=== PATIENT | female | born 1945 | race Caucasian/White ===

== ENCOUNTER → 2016-05-27 | Outpatient (CLI) | payer MEDICARE ==
--- NOTE | 2016-05-27 12:12 | REPMRS ---
Patient History The patient states she had a clinical breast exam in 08/2015. Patient is postmenopausal, has history of breast cancer at age 53, and had previous chemotherapy at age 53. Family history of breast cancer in mother at age 61. Malignant localization of breast nodule of the right breast, 2004. Radiation therapy of the right breast, 2004. Malignant localization of breast nodule of the left breast, 1999. Radiation therapy of the left breast, 1999. Took tamoxifen for 5 years. Digital Woman Screen Mammo: May 27, 2016 - Exam #: [id number] Bilateral CC and MLO view(s) were taken. Technologist: Kenisha Duarte, Technologist Prior study comparison: May 12, 2014, digital woman screen mammo performed at [facility]. May 09, 2013, digital woman screen mammo performed at [facility]. May 06, 2012, digital woman screen mammo performed at [facility]. May 06, 2011, digital woman screen mammo performed at [facility]. FINDINGS: The breast tissue is heterogeneously dense. This may lower the sensitivity of mammography. There has been no change in the appearance of the mammogram from the prior studies. There is a moderate amount of residual fibroglandular tissue which is fairly symmetric. Stable bilateral postsurgical changes with scarring and retraction both breasts. Surgical clips also noted on both sides and stable. There is no interval development of dominant mass, architectural distortion, or clustered microcalcification typical of malignancy. Large coarse benign appearing calcifications are present. Scattered lymph nodes are seen in the left axilla. No significant changes when compared with prior studies. ASSESSMENT: BI-RADS/ACR category 2 mammogram. Benign finding(s). Recommendation Routine screening mammogram in 1 year (for women over age 40). This mammogram was interpreted with the aid of an FDA-approved computer-aided dectection system. A. Negative x-ray reports should not delay biopsy if a dominant or clinically suspicious mass is present. B. Four to eight percent of cancers are not identified by mammography. C. Adenosis and dense breast may obscure an underlying neoplasm. Electronically Signed By: Jamel Concepcion MD 05/27/16 1211
== END ==
LOC: M WHC 10:16
PROVIDERS: ATTEND Nurse Practitioner Family
DX: Z12.31 Encounter for screening mammogram for malignant neoplasm of breast (principal); Z85.3 Personal history of malignant neoplasm of breast

== ENCOUNTER 2017-01-25 10:21 | Emergency (ER) | payer MEDICARE ==
[~2017-01-25] VITALS: Ht 154.9 cm; Wt 75.0 kg
[2017-01-25] MEDS ORDERED: VENL37.52 (10:32)
[2017-01-25] MEDS ORDERED: FLUTISP (10:32)
[2017-01-25] MEDS ORDERED: GENT0.3O15 (10:32)
[2017-01-25] MEDS ORDERED: DOXY100C (10:32)
[2017-01-25] MEDS ORDERED: ZOLP5TAB (10:32)
[2017-01-25] MEDS ORDERED: CLINDAMYCIN 900 MG in APPROPRIATE DILUENT 1 EA IV ONE (11:30)
[2017-01-25 11:46] LABS: BASO # 0.1 10^3/uL (0.0-0.2); BASO % 0.7 % (0.0-1.0); EOS # 0.2 10^3/uL (0.0-0.50); EOS % 2.3 % (0.0-3.0); IMMATURE GRANULOCYTE % 0.2 % (0-0); LYMPH # 1.7 10^3/uL (1.5-4.5); LYMPH % 20.1 % (24.0-44.0); MEAN CORPUSCULAR HEMOGLOBIN 32.3 pg (27.0-33.0); MEAN CORPUSCULAR HGB CONC 31.8 g/dl (32.0-36.5); MEAN CORPUSCULAR VOLUME 101.4 fl (80.0-96.0); MONO # 0.8 10^3/uL (0.0-0.8); MONO % 9.8 % (0.0-5.0); NEUTROPHILS # 5.6 10^3/uL (1.8-7.7); NEUTROPHILS % 66.9 % (36.0-66.0); PLATELET COUNT, AUTOMATED 321 10^3/uL (150-450); RED CELL DISTRIBUTION WIDTH 12.4 % (11.5-14.5); WHITE BLOOD COUNT 8.4 10^3/uL (4.0-10.0)
[2017-01-25 12:05] LABS: ALBUMIN 3.9 GM/DL (3.2-5.2); ALKALINE PHOSPHATASE 67 U/L (45-117); ALT/SGPT 28 U/L (12-78); ANION GAP 7 MEQ/L (8-16); AST/SGOT 15 U/L (7-37); BILIRUBIN,DIRECT < 0.1 MG/DL (0.0-0.2); BILIRUBIN,TOTAL 0.3 MG/DL (0.2-1.0); BLOOD UREA NITROGEN 20 MG/DL (7-18); CALCIUM LEVEL 8.9 MG/DL (8.8-10.2); CARBON DIOXIDE LEVEL 29 MEQ/L (21-32); CHLORIDE LEVEL 106 MEQ/L (98-107); CREATININE FOR GFR 0.61 MG/DL (0.55-1.02); GLOMERULAR FILTRATION RATE > 60.0 (>39); GLUCOSE, FASTING 70 MG/DL (83-110); POTASSIUM SERUM 3.6 MEQ/L (3.5-5.1); SODIUM LEVEL 142 MEQ/L (136-145); TOTAL PROTEIN 7.8 GM/DL (6.4-8.2)
[2017-01-25] MEDS ORDERED: FLUORESCEIN OPHTH 1 MG STRIP OD ONE (12:15)
[2017-01-25] MEDS ORDERED: NORCO, ANEXSIA 5/325MG TABLET (HYDROcodone/ACETAMINOPHEN) PO ONE (12:15)
[2017-01-25] MEDS ORDERED: VALA1TAB2 PO (14:33)
[2017-01-25] MEDS ORDERED: MEDR4PAK PO (14:33)
[2017-01-25] MEDS ORDERED: CYCL1SOL17 OD (14:33)
[2017-01-25] MEDS ORDERED: ZIRG0.152 OD (14:33)
[2017-01-25] MEDS ORDERED: ERYTOIN8 OD (14:33)
[2017-01-25] MEDS ORDERED: NORCOTAB PO (14:33)
[2017-01-25 15:04] VITALS: BP 173/82
== END 2017-01-25 15:06 | disposition home or self-care (01) ==
LOC: M ED 10:21
DX: B02.33 Zoster keratitis (principal); L03.213 Periorbital cellulitis; F32.9 Major depressive disorder, single episode, unspecified; G47.00 Insomnia, unspecified; Z87.891 Personal history of nicotine dependence; Z88.8 Allergy status to other drugs, medicaments and biological substances; Z79.899 Other long term (current) drug therapy

== ENCOUNTER → 2017-05-28 | Outpatient (CLI) | payer MEDICARE | LOC: M WHC 12:55 | DX: Z12.31 Encounter for screening mammogram for malignant neoplasm of breast (principal); R92.8 Other abnormal and inconclusive findings on diagnostic imaging of breast; Z85.3 Personal history of malignant neoplasm of breast | CPT/HCPCS: 77067 ==

== ENCOUNTER → 2017-06-16 | Outpatient (REF) | payer MEDICARE ==
[2017-06-16 16:43] LABS: INR 1.02; PROTHROMBIN TIME 13.5 SECONDS (12.4-14.5)
== END ==
LOC: M LAB REF 15:58
DX: Z79.01 Long term (current) use of anticoagulants (principal); Z01.818 Encounter for other preprocedural examination (principal)
CPT/HCPCS: 85610

== ENCOUNTER → 2017-06-22 | Outpatient (CLI) | payer MEDICARE ==
[~2017-06-22] MED LIST: LIDOCAINE 1% MDV 20ML VIAL As Ordered
== END ==
LOC: M RADPRO 12:13
DX: R92.1 Mammographic calcification found on diagnostic imaging of breast (principal)
CPT/HCPCS: 77065; G0279

== ENCOUNTER 2017-08-14 07:29 | Inpatient (IN) | payer MEDICARE ==
[~2017-08-14 07:29] MED LIST changes: +GLYCOPYRROLATE INJ 0.2 MG/ML 2 ML VIAL As Ordered; +HYDROmorphone HCL 2 MG/ML 1ML VIAL (J1170) As Ordered; +KETOROLAC 60 MG/2 ML VIAL (J1885) As Ordered; -LIDOCAINE 1% MDV 20ML VIAL As Ordered; +LIDOCAINE 2% INJ 100 MG/5 ML SDV (FOR ANES.) As Ordered; +MIDAZOLAM INJ 2 MG/2 ML VIAL (J2250) As Ordered; +NEOSTIGMINE 10 MG/10 ML VIAL (J2710) As Ordered; +ONDANSETRON 4MG/2ML VIAL (J2405) As Ordered; +PROPOFOL 200 MG/20 ML VIAL As Ordered; +ROCURONIUM BROMIDE 50 MG/5 ML VIAL As Ordered; +dexameTHASONE 4 MG/ML 1ML VIAL (J1100) As Ordered; +fentaNYL 100 MCG/2 ML INJECTION (J3010) As Ordered
[2017-08-14] MEDS ORDERED: LIDOCAINE 1% MDV 20ML VIAL SQ (07:45)
[2017-08-14] MEDS ORDERED: LR 1,000 ML IV (07:45)
[2017-08-14] MEDS ORDERED: EMLA CREAM 5GM (LIDOCAINE/PRILOCAINE) As Ordered (08:04)
[2017-08-14] MEDS: LIDOCAINE 5% (LIDODERM) PATCH TD (08:08)
[2017-08-14] MEDS ORDERED: SCOPOLAMINE 1MG TRANSDERMAL PATCH As Ordered (10:50)
[2017-08-14] MEDS: SCOPOLAMINE 1MG TRANSDERMAL PATCH TOP (11:15)
[2017-08-14] MEDS: METHYLENE BLUE 0.5% (5MG/ML) 10 ML AMP (PROVAYBLUE)(Q9968 PER 1MG) As Ordered (12:10)
[2017-08-14] MEDS ORDERED: KETOROLAC 30 MG/ML VIAL (J1885) IV (16:15)
[2017-08-14] MEDS ORDERED: MORPHINE 4 MG/ML 1ML VIAL/SYRINGE (J2270) IV (16:15)
[2017-08-14] MEDS ORDERED: ONDANSETRON 4MG/2ML VIAL (J2405) IV ×2 (16:15→17:15)
[2017-08-14] MEDS ORDERED: ACETAMINOPHEN TAB 650MG DOSE (2X325MG) PO (16:15)
[2017-08-14] MEDS ORDERED: fentaNYL 100 MCG/2 ML INJECTION (J3010) IV (17:15)
[2017-08-14] MEDS ORDERED: MORPHINE 10 MG/ML 1ML VIAL (J2270) IV (17:15)
[2017-08-14] MEDS ORDERED: PERCOCET 5MG/325MG TAB PO (17:15)
[2017-08-14] MEDS: LR 1,000 ML IV ×2 (18:30→20:38)
[2017-08-14] MEDS: GABAPENTIN 300 MG CAP PO (18:30)
[2017-08-14] MEDS: TOBRADEX OPHTH SUSP 2.5 ML OD (20:38)
[2017-08-14] MEDS: NORCO, ANEXSIA 5/325MG TABLET (HYDROcodone/ACETAMINOPHEN) PO (20:40)
[2017-08-15] MEDS: GABAPENTIN 300 MG CAP PO ×3 (00:04→16:39)
[2017-08-15] MEDS: LR 1,000 ML IV ×2 (00:45→10:20)
[2017-08-15] MEDS: NORCO, ANEXSIA 5/325MG TABLET (HYDROcodone/ACETAMINOPHEN) PO (04:39)
[2017-08-15 06:38] LABS: BASO % 0.2 % (0.0-1.0); HEMATOCRIT 32.1 % (36.0-47.0); HEMOGLOBIN 10.3 g/dl (12.0-15.5); IMMATURE GRANULOCYTE % 0.4 % (0-3.0); LYMPH # 1.3 10^3/uL (1.5-4.5); LYMPH % 11.2 % (24.0-44.0); MEAN CORPUSCULAR HEMOGLOBIN 32.7 pg (27.0-33.0); MEAN CORPUSCULAR HGB CONC 32.1 g/dl (32.0-36.5); MEAN CORPUSCULAR VOLUME 101.9 fl (80.0-96.0); MONO # 0.8 10^3/uL (0.0-0.8); MONO % 6.6 % (0.0-5.0); NEUTROPHILS # 9.5 10^3/uL (1.8-7.7); NEUTROPHILS % 81.6 % (36.0-66.0); PLATELET COUNT, AUTOMATED 279 10^3/uL (150-450); RED BLOOD COUNT 3.15 10^6/uL (4.00-5.40); RED CELL DISTRIBUTION WIDTH 12.9 % (11.5-14.5); WHITE BLOOD COUNT 11.7 10^3/uL (4.0-10.0)
[2017-08-15 06:57] LABS: ANION GAP 2 MEQ/L (8-16); BLOOD UREA NITROGEN 16 MG/DL (7-18); CALCIUM LEVEL 8.5 MG/DL (8.8-10.2); CARBON DIOXIDE LEVEL 31 MEQ/L (21-32); CHLORIDE LEVEL 109 MEQ/L (98-107); CREATININE FOR GFR 0.64 MG/DL (0.55-1.30); GLOMERULAR FILTRATION RATE > 60.0 (>39); GLUCOSE, FASTING 110 MG/DL (70-100); POTASSIUM SERUM 4.3 MEQ/L (3.5-5.1); SODIUM LEVEL 142 MEQ/L (136-145)
[2017-08-15] MEDS: TOBRADEX OPHTH SUSP 2.5 ML OD ×2 (08:53→16:00)
[2017-08-15] MEDS: CETIRIZINE (ZyrTEC) 10 MG TAB PO (08:53)
== END 2017-08-15 16:45 | disposition home or self-care (01) | DRG 580 ==
LOC: M OR 07:29 → M MSPAV 17:16
PROC: 07B50ZX Excision of Right Axillary Lymphatic, Open Approach, Diagnostic (ICD-10-PCS; principal; 2017-08-14 11:00)
PROC: 0HTV0ZZ Resection of Bilateral Breast, Open Approach (ICD-10-PCS; 2017-08-14 11:00)
PROC: 0KBH0ZZ Excision of Right Thorax Muscle, Open Approach (ICD-10-PCS; 2017-08-14 11:00)
DX: C50.411 Malignant neoplasm of upper-outer quadrant of right female breast (principal); C77.3 Secondary and unspecified malignant neoplasm of axilla and upper limb lymph nodes; F32.9 Major depressive disorder, single episode, unspecified; K22.70 Barrett's esophagus without dysplasia; G47.00 Insomnia, unspecified; E78.5 Hyperlipidemia, unspecified; M54.2 Cervicalgia; Z92.21 Personal history of antineoplastic chemotherapy; Z92.3 Personal history of irradiation; Z87.891 Personal history of nicotine dependence; M54.5 Low back pain; Z17.0 Estrogen receptor positive status [ER+]

== ENCOUNTER → 2017-08-18 | Outpatient (CLI) | payer MEDICARE | LOC: M PLARAD 13:24 | DX: Z85.3 Personal history of malignant neoplasm of breast (principal) | CPT/HCPCS: 78815 ==

== ENCOUNTER → 2017-09-04 | Outpatient (CLI) | payer MEDICARE | LOC: M WHC 13:05 | DX: C50.119 Malignant neoplasm of central portion of unspecified female breast (principal); N95.8 Other specified menopausal and perimenopausal disorders | CPT/HCPCS: 77080 ==

== ENCOUNTER → 2017-10-26 | Outpatient (REF) | payer MEDICARE | LOC: M LAB REF 14:49 | DX: D48.5 Neoplasm of uncertain behavior of skin (principal) | CPT/HCPCS: 88305 ==

== ENCOUNTER → 2017-11-12 | Outpatient (CLI) | payer MEDICARE ==
[~2017-11-12] MED LIST changes: +GASTROGRAFIN SOLUTION 30ML (Q9963) As Ordered; -GLYCOPYRROLATE INJ 0.2 MG/ML 2 ML VIAL As Ordered; -HYDROmorphone HCL 2 MG/ML 1ML VIAL (J1170) As Ordered; +ISOVUE-370 76% 100ML VIAL (Q9967) As Ordered; -KETOROLAC 60 MG/2 ML VIAL (J1885) As Ordered; -LIDOCAINE 2% INJ 100 MG/5 ML SDV (FOR ANES.) As Ordered; -MIDAZOLAM INJ 2 MG/2 ML VIAL (J2250) As Ordered; -NEOSTIGMINE 10 MG/10 ML VIAL (J2710) As Ordered; -ONDANSETRON 4MG/2ML VIAL (J2405) As Ordered; -PROPOFOL 200 MG/20 ML VIAL As Ordered; -ROCURONIUM BROMIDE 50 MG/5 ML VIAL As Ordered; -dexameTHASONE 4 MG/ML 1ML VIAL (J1100) As Ordered; -fentaNYL 100 MCG/2 ML INJECTION (J3010) As Ordered
== END ==
LOC: M RAD 07:27
DX: C50.411 Malignant neoplasm of upper-outer quadrant of right female breast (principal); C77.3 Secondary and unspecified malignant neoplasm of axilla and upper limb lymph nodes
CPT/HCPCS: Q9963

== ENCOUNTER → 2017-11-24 | Outpatient (CLI) | payer MEDICARE | LOC: M ONCR 10:38 | DX: C50.911 Malignant neoplasm of unspecified site of right female breast (principal) | CPT/HCPCS: G0463 ==

== ENCOUNTER → 2018-04-13 | Outpatient (CLI) | payer MEDICARE ==
[~2018-04-13] MED LIST changes: +ALEN70TA57 PO; +AMBI5TAB PO; +AMIT25TA; +ANAS1TAB2 PO; +AUGM875T28 PO; +CALC600T60 PO; +CYCL1SOL17 OD; +DOXY100C; +ERYTOIN8 OD; +FLUTISP; +GABA-845 PO; +GABA600T4; -GASTROGRAFIN SOLUTION 30ML (Q9963) As Ordered; +GENT0.3O15; +IBRA125C PO; +ICAPCAP PO; -ISOVUE-370 76% 100ML VIAL (Q9967) As Ordered; +MEDR4PAK PO; +NORCOTAB PO; +TOBRSUS8 OD; +TOBRSUS8 OP; +VALA1TAB2 PO; +VENL37.52; +VENL75CA47 PO; +VITA-182 PO; +VITACAP8 PO; +ZIRG0.152 OD; +ZOLP5TAB; +ZYRT10CA5 PO
--- NOTE | 2018-04-13 20:50 | REP ---
Whole body PET CT scan for restaging of breast carcinoma: Comparison is 08/18/2017. Whole-body scanning is performed from skull base to the upper thighs. Neck and supraclavicular areas: There are no hypermetabolic foci, this is unchanged. Chest: There are no hypermetabolic foci, this is unchanged. Abdomen, pelvis and upper thighs: There are no hypermetabolic foci, this is unchanged. Impression: Negative whole-body PET scan. There are no hypermetabolic foci. This is unchanged from the prior study. The study is performed with 8.68 mCi of F 18 FDG. Electronically Signed by Hussain Arias MD 04/13/2018 08:41 P
== END ==
LOC: M PLARAD 10:27
PROVIDERS: ATTEND Internal Medicine Medical Oncology
DX: C50.411 Malignant neoplasm of upper-outer quadrant of right female breast (principal)
CPT/HCPCS: 78815; A9552

== ENCOUNTER → 2018-05-21 | Outpatient (CLI) | payer MEDICARE ==
[~2018-05-21] MED LIST changes: +SENO8.6T10 PO
--- NOTE | 2018-05-21 19:13 | REP ---
ULTRASOUND RIGHT AXILLA: Real-time sonographic evaluation of the right axilla performed in the region of a reported palpable abnormality. At that location is a hypoechoic solid nodule with internal blood flow measuring 5 x 5 x 4 mm. There is no fatty hilum. There is an adjacent normal appearing lymph node with a fatty hilum measuring 6 x 4 mm. No other cystic or solid nodule is seen. IMPRESSION: The palpable lump in the right axilla corresponds to a hypoechoic solid nodule measuring 5 x 5 x 4 mm. This is a nonspecific finding. There is no fatty hilum identified as would be expected with a normal lymph node morphology. There is an adjacent normal appearing lymph node with a fatty hilum measuring 6 x 4 mm. Electronically Signed by Hussain Brothers MD 05/21/2018 08:04 P
== END ==
LOC: M RAD 13:23
PROVIDERS: ATTEND Internal Medicine Medical Oncology
DX: C50.411 Malignant neoplasm of upper-outer quadrant of right female breast (principal); R93.7 Abnormal findings on diagnostic imaging of other parts of musculoskeletal system

== ENCOUNTER → 2018-05-25 | Outpatient (CLI) | payer MEDICARE ==
[~2018-05-25] MED LIST changes: +GASTROGRAFIN SOLUTION 30ML (Q9963) As Ordered ONE; +ISOVUE-370 76% 125ML VIAL (Q9967 PER ML) As Ordered ONE
--- NOTE | 2018-05-25 15:45 | REP ---
Clinical: Recurrent breast cancer for restaging. Technique: Axial contrast enhanced images from the lung bases to the pubic symphysis using oral (per protocol) and 100 ml Isovue 370 intravenous contrast material with delayed images of the abdomen as well as coronal and sagittal re-formations. Comparison: PET-CT dated 04/13/2018, CT dated 11/12/2017. Findings: Please refer to chest CT for full evaluation of the chest. Liver, spleen, pancreas, gallbladder, bilateral adrenal glands and kidneys are normal. The enteric system is without obstruction or acute inflammatory process. Pelvis demonstrates normal bladder and evidence for prior hysterectomy. No ascites. No free air. No intraperitoneal or retroperitoneal adenopathy. Abdominal aorta without aneurysm or dissection. Musculoskeletal structures demonstrate age-related changes without obvious aggressive lesion or abnormality. Impression: 1. No acute abdominopelvic pathology appreciated. 2. Specifically, no evidence for metastatic disease related to the given history of breast cancer. Electronically Signed by Amaury Tinajero MD 05/25/2018 03:36 P
--- NOTE | 2018-05-25 15:50 | REP ---
Clinical: Recurrent breast cancer for restaging. Technique: Axial contrast enhanced images from the thoracic inlet to the upper abdomen with coronal and sagittal re-formations using 100 ml Isovue 370 intravenous contrast material. Comparison: PET-CT dated 04/13/2018; chest CT dated 11/12/2017. Findings: In comparison with prior examination, there is a new area of somewhat ill-defined linear, plate-like atelectasis / interstitial changes in the right upper lobe (images [id number]). Remainder of lung schafer demonstrate stable chronic age-related changes. 3 mm ground-glass opacity adjacent to the right major fissure (image 55) remains unchanged. No further area of consolidation, nodule or mass lesion appreciated. No pleural effusion. No pneumothorax. Tracheobronchial tree is patent. No significant adenopathy. Thoracic aorta, pulmonary vasculature and heart/pericardium appear relatively normal / stable. Surrounding osseous structures are intact and without focal osseous abnormality. Evidence for prior bilateral mastectomy again noted. Impression: 1. New vague area of linear, plate-like fibro atelectatic change in the right upper lung zone warrants short-term, 3-6 month follow-up given the patient's history of breast cancer. 2. No further acute mediastinal or pleuroparenchymal process appreciated. Electronically Signed by Amaury Tinajero MD 05/25/2018 03:41 P
== END ==
LOC: M RAD 12:54
PROVIDERS: ATTEND Internal Medicine Medical Oncology
DX: C50.919 Malignant neoplasm of unspecified site of unspecified female breast (principal); Z90.13 Acquired absence of bilateral breasts and nipples; R91.8 Other nonspecific abnormal finding of lung field
CPT/HCPCS: 71260; 74177; Q9963; Q9967

== ENCOUNTER → 2018-09-29 | Outpatient (CLI) | payer MEDICARE ==
[~2018-09-29] MED LIST changes: -ALEN70TA57 PO; +ALEN70TA74 PO; +ALLE10TA62 PO; +CAPE1TAB2 PO; +CBD OIL; +D-101000 PO; +HYDR-3715 PO; +ISOVUE-370 76% 100ML VIAL (Q9967) As Ordered ONE; -ISOVUE-370 76% 125ML VIAL (Q9967 PER ML) As Ordered ONE; +MAGICMW SSP; -NORCOTAB PO; +PRESCAP PO; +PROBCAP14 PO; +QUET5TAB PO; +SB A10TA4 PO; -VALA1TAB2 PO; +VALA1TAB64 PO; +VENL37TA PO; +VITA1CHW7 PO; +ZOLP5TAB PO
--- NOTE | 2018-09-29 11:23 | REP ---
Clinical: Breast cancer. Follow-up. Technique: Axial contrast enhanced images from the lung bases to the pubic symphysis using oral (per protocol) and 100 ml Isovue 370 intravenous contrast material with coronal and sagittal re-formations. Comparison: 05/25/2018. Findings: Mild fatty infiltration to the liver suggested along with stable subcentimeter benign appearing cyst in the left lobe. No suspicious hepatic lesions are identified. Spleen, pancreas, gallbladder, bilateral adrenal glands and kidneys are relatively normal. Incidental 4 mm nonobstructing left renal calculus noted. The enteric system is without obstruction or acute inflammatory process. Scattered sigmoid diverticula noted without acute diverticulitis. Pelvis demonstrates normal bladder and evidence for prior hysterectomy. No ascites. No free air. No intraperitoneal or retroperitoneal adenopathy. Abdominal aorta without aneurysm or dissection. Musculoskeletal structures demonstrate age-related degenerative changes without focal abnormality. Impression: 1. Hepatic steatosis and stable subcentimeter benign hepatic cyst. 2. 4 mm nonobstructing left renal calculus. 3. Sigmoid diverticula without acute diverticulitis. 4. No acute abdominopelvic pathology appreciated. No evidence for metastatic disease. No ascites, adenopathy, or focal inflammatory stranding. Electronically Signed by Amaury Tinajero MD 09/29/2018 11:15 A
--- NOTE | 2018-10-14 05:30 | REP ---
Clinical: Breast cancer. Technique: Axial contrast enhanced images from the thoracic inlet to the upper abdomen with coronal and sagittal re-formations oozing 100 ml Isovue 370 intravenous contrast material. Comparison: 05/25/2018. Findings: The bilateral lung schafer are relatively well aerated, symmetric and essentially clear. Minimal chronic fibroatelectatic changes at the lingula and small 2 mm calcified nodules remains stable. No new acute consolidation, significant nodule or mass lesion is appreciated. No pleural effusion. No pneumothorax. The previously identified areas of ill-defined ground-glass opacity predominantly noted in the right lobe have resolved. Sub centimeter mediastinal and left hilar lymph nodes are nonspecific and unchanged. Vascular structures including thoracic aorta, pulmonary vasculature and heart/pericardium are essentially normal/stable. Limited upper abdomen demonstrates normal bilateral adrenal glands. Musculoskeletal structures are intact without focal aggressive abnormality noted. Impression: 1. Previously identified ill-defined areas of ground-glass opacity have resolved and likely represented transient atelectasis. 2. No significant mediastinal or pleuroparenchymal process appreciated. Electronically Signed by Amaury Tinajero MD 10/14/2018 05:22 A
== END ==
LOC: M RAD 08:57
PROVIDERS: ATTEND Internal Medicine Medical Oncology
DX: C50.919 Malignant neoplasm of unspecified site of unspecified female breast (principal); K76.0 Fatty (change of) liver, not elsewhere classified; K76.89 Other specified diseases of liver; K57.30 Diverticulosis of large intestine without perforation or abscess without bleeding
CPT/HCPCS: 71260; 74178; Q9963; Q9967

== ENCOUNTER → 2018-12-14 | Outpatient (CLI) | payer MEDICARE ==
[~2018-12-14] MED LIST changes: -GASTROGRAFIN SOLUTION 30ML (Q9963) As Ordered ONE; -ISOVUE-370 76% 100ML VIAL (Q9967) As Ordered ONE; +VALA1TAB2 PO; -VALA1TAB64 PO; -VITA1CHW7 PO
--- NOTE | 2018-12-14 13:14 | REP ---
REASON FOR EXAM: History of breast cancer. Latest prior for comparison 09/29/2018. The lack of intravenous contrast significantly decreases the sensitivity of the exam. Limited evaluation of the solid intra-abdominal organs and gallbladder show no gross abnormalities. Limited evaluation of the kidneys shows bilateral tiny nonobstructing nephroliths. There is no evidence of hydronephrosis or hydroureter. There are no ureteroliths. There are no urinary bladder calcifications. There are bilateral pelvic phleboliths status quo. Limited evaluation of the abdominal aorta and paraaortic regions show no gross abnormalities. Limited evaluation of the bowel loops and their mesenteries show no gross abnormalities. There is no free fluid or free air. CT PELVIS: There is no evidence of a pelvic mass or adenopathy. The bowel loops and their mesenteries are within normal limits. Bone window technique throughout the exam shows no significant change in the appearance of the imaged osseous structures. Spinal, hip, and sacroiliac joint degenerative changes are again noted. IMPRESSION: 1. Bilateral nonobstructing nephroliths. 2. Limited exam as described above showing no evidence of acute intra-abdominal or intrapelvic disease. Electronically Signed by Eldon Mckeon DO 12/14/2018 02:14 P
--- NOTE | 2018-12-14 14:26 | REP ---
REASON FOR EXAM: History of breast carcinoma. COMPARISON: Multiple. All priors were reviewed, the latest of which is dated 09/29/2018 showing no evidence of acute disease. The lack of intravenous contrast decreases the sensitivity of the exam. The mediastinum and pulmonary adriel are essentially unchanged. There is no evidence of a mass or adenopathy. There are no pleural or pericardial effusions. For description of the imaged upper abdomen see the abdominal CT report obtained today. Bone window technique throughout the exam shows no evidence of significant change in the appearance of the imaged osseous structures. Evaluation of the lung schafer shows a stable 4 mm sized nodule in the right lower lobe abutting the major fissure. This was not imaged on the latest prior chest CT, however, it has been stable since as far back as the chest CT of 11/12/2017. Incidental calcified granulomas are also seen bilaterally. No new abnormal nodules, mass, or opacities have developed. IMPRESSION: No acute intrathoracic disease. Findings and limitations as described above. Electronically Signed by Eldon Mckeon DO 12/14/2018 03:48 P
== END ==
LOC: M RAD 10:13
PROVIDERS: ATTEND Internal Medicine Medical Oncology
DX: N20.0 Calculus of kidney (principal); C50.911 Malignant neoplasm of unspecified site of right female breast; C50.912 Malignant neoplasm of unspecified site of left female breast

== ENCOUNTER → 2018-12-16 | Outpatient (CLI) | payer MEDICARE ==
--- NOTE | 2018-12-17 09:32 | RADONC ---
RADIATION ONCOLOGY CONSULTATION NOTE DATE: 12/16/2018 CHART NUMBER: [id number] DIAGNOSIS: Right breast cancer.. Recurrent. ECOG PERFORMANCE STATUS: 0 CONSULTATION NOTE: Ms. 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 HISTORY OF PRESENT ILLNESS: The patient has a very lengthy history, which was well documented in detail on our previous consultation note dated 11/24/2017. I would refer you to that note. To briefly summarize, the patient's history dates back to the year 1999 when she underwent a lumpectomy for early stage left-sided breast carcinoma. Apparently, she was treated with postoperative radiation therapy as well as four cycles of doxorubicin and cyclophosphamide. She received tamoxifen for 5 years and then went on to letrozole. This was treated in [place]. In the year 2005, a right-sided breast cancer stage I, T1c (1.3 cm), N0, MX was found and the patient was treated with lumpectomy followed by MammoSite brachytherapy and letrozole which she received from [id number]. The patient did well, but was found to have a local recurrence in the right breast. On 08/14/2017, the patient underwent right mastectomy and axillary tail dissection. Pathology revealed a 3 cm, moderately differentiated invasive ductal carcinoma of the right breast. All surgical margins appeared to be negative. There were foci of lymphatic permeation noted in the breast parenchyma. The tumor was estrogen receptor and progesterone receptor positive and HER2/eric negative. 2 of 4 axillary lymph nodes were sampled and were positive for metastatic disease one showing extracapsular extension. The patient was noted to have done well for approximately 5 or 6 weeks but then noted small skin nodules forming on her right chest wall. On 10/26/2017, the patient underwent a punch biopsy of the right chest wall and was found to have recurrent ductal carcinoma. These lesions continued to spread and as noted above, the patient was seen by me on 11/24/2017 for discussion of external beam radiation therapy to her chest wall and lymph node drainage region. Following my consultation the patient was seen by her medical oncologist, Dr. Fraga and Dr. Fraga initiated systemic therapy. She has been on Faslodex/palbociclib from October 2017 until May 2018 with a partial response. She was then placed on capecitabine, which was begun in May of 2018. She has done 6 months of therapy. The patient has been photographing her lesions and reports that they have not changed basically over the past year. A CT scan of the chest, abdomen and pelvis was done on 12/14/2018 and no evidence of metastatic disease was seen in any of those regions. The patient is now being referred to us once again for further discussion of chest wall and axillary radiation therapy in attempt to achieve local control. PAST MEDICAL HISTORY: The patient's past medical history is positive for a LULI-BSO in the 1970s. She had asthma as a child. The patient has a history of bronchitis and cataracts. She had a tonsillectomy as well as an appendectomy in the past. ALLERGIES: The patient is allergic to STATINS. SOCIAL HISTORY: The patient has smoked one pack of cigarettes per day for 26 years. She quit 25 years ago. She drinks alcohol socially. FAMILY HISTORY: The patient's family history is positive for mother with breast cancer. REVIEW OF SYSTEMS: The patient's review of systems is positive for some anxiety and decreased energy. It is otherwise noncontributory. Denies nausea, vomiting, fevers, chills, night sweats, diplopia, headaches, anxiety or depression, anorexia, weight loss, visual disturbances, chest pain, urinary or bowel difficulties, bone pain, or neurological problems. PHYSICAL EXAMINATION: The patient is a well-developed, well-nourished 73-year-old white female in no acute distress. HEENT exam is normocephalic, atraumatic. Extraocular movements are intact. There is no palpable cervical, supraclavicular, infraclavicular, axillary, or inguinal lymphadenopathy present. Lungs are clear to auscultation and percussion. Heart has a regular rate and rhythm. Abdomen is benign with no hepatosplenomegaly, masses, or tenderness. Breast examination: The patient's right chest wall shows multiple nodules present involving the skin over her mastectomy site. Skeletal examination reveals no tenderness to pressure or percussion of the bony skeleton. Extremities reveal no clubbing, cyanosis, or edema. Neurologic exam is grossly intact, as is the remainder of the physical examination. ASSESSMENT: As per my discussion 1 year ago, I do believe this patient would benefit from external beam radiation therapy and I have so informed her. I have discussed with the patient in detail the potential benefits as well as possible acute and chronic sequelae of external beam radiation therapy. We discussed logistics of treatment planning, simulation and subsequent fractionated daily radiation treatments. As noted previously, the patient had MammoSite radiation to the right side in the past. Brachytherapy is utilized to deliver a high dose of radiation to the tumor bed with a rapid fall off a dose therefore limiting somewhat the radiation dose to the chest wall. In light of this, I think radiation can be given with acceptable risk. Indeed, if we do not control these lesions they will continue to ulcerate and cause this patient a significant problem. In light of this and the fact that surgeries and systemic therapies have been utilized, radiation is the most reasonable option at this point. Thank you for allowing us to participate in the care of this very pleasant woman. If can be of any further assistance, please free to contact me at anytime. As always, warm regards nausea. cc: MD Michaela Rivera MD Michael Hinman, PA Robert Kimball, MD
== END ==
LOC: M ONCR 12:51
PROVIDERS: ATTEND Radiology Radiation Oncology
DX: C50.911 Malignant neoplasm of unspecified site of right female breast (principal)

== ENCOUNTER 2018-12-28 10:26 | Outpatient (RCR) | payer MEDICARE ==
--- NOTE | 2018-12-28 10:59 | RADONC ---
RADIATION ONCOLOGY SIMULATION NOTE DATE: 12/28/2018 CHART NUMBER: [id number] Ms. Woodruff was taken to the CT scan for CT simulation of her right chest wall and supraclavicular schafer. CT was accomplished without difficulty or discomfort. Radiation treatment planning is underway and radiation treatments will begin subsequently. An immobilization device was created and will be used throughout the course of treatment. It was created without difficulty or discomfort. I was physically present throughout the course of CT simulation.
== END 2018-12-30 ==
LOC: M ONCR 10:26
PROVIDERS: ATTEND Radiology Radiation Oncology
DX: C50.911 Malignant neoplasm of unspecified site of right female breast (principal)

== ENCOUNTER 2019-01-26 10:04 | Outpatient (RCR) | payer MEDICARE ==
--- NOTE | 2019-01-10 10:58 | RADONC ---
RADIATION ONCOLOGY PROGRESS NOTE DATE: 01/10/2019 CHART NUMBER: [id number] PROGRESS NOTE: Ms. Woodruff is presently at a dose of 720 cGy to her right chest wall and is tolerating treatments quite well at this point with no complaints related to her radiation therapy. She is having no skin or bone pain. REVIEW OF SYSTEMS: The patient's review of systems is noncontributory. Denies nausea, vomiting, fevers, chills, night sweats, diplopia, headaches, anxiety or depression, anorexia, weight loss, visual disturbances, chest pain, urinary or bowel difficulties, bone pain, or neurological problems. PHYSICAL EXAMINATION: The patient's skin is in good condition with no evidence of radiation change present. There is no moist or dry desquamation. The remainder of her physical exam remains unchanged. Ms. Woodruff is tolerating treatments quite well and radiation will continue as scheduled.
--- NOTE | 2019-01-18 10:14 | RADONC ---
RADIATION ONCOLOGY DATE: 01/17/2019 CHART NUMBER: [id number] Ms. Woodruff is presently at a dose of 1620 cGy to her right chest wall and is tolerating treatments quite well at this point with no complaints related to her radiation therapy. She is having no skin pain or other problems. REVIEW OF SYSTEMS: The patient's review of systems is noncontributory. She denies nausea, vomiting, fevers, chills, night sweats, diplopia, headaches, anxiety or depression, anorexia, weight loss, visual disturbances, chest pain, urinary or bowel difficulties, bone pain, or neurological problems. PHYSICAL EXAMINATION: The patient's skin is in good condition with no evidence of moist or dry desquamation. The remainder of her physical exam remains unchanged. Ms. Woodruff is tolerating treatments quite well and radiation will continue as scheduled.
--- NOTE | 2019-01-26 07:21 | RADONC ---
RADIATION ONCOLOGY PROGRESS NOTE DATE: 01/24/2019 CHART NUMBER: [id number] Ms. Woodruff is presently at a dose of 2520 cGy to her right chest wall and is tolerating treatments quite well at this point with no complaints related to her radiation therapy. She has no chest wall pain or other problems at this time. REVIEW OF SYSTEMS: The patient's review of systems is noncontributory. She denies nausea, vomiting, fevers, chills, night sweats, diplopia, headaches, anxiety or depression, anorexia, weight loss, visual disturbances, chest pain, urinary or bowel difficulties, bone pain, or neurological problems. PHYSICAL EXAMINATION: The patient's skin is in good condition with no evidence of moist or dry desquamation. There is some erythema present. The remainder of physical exam remains unchanged. Ms. Woodruff is tolerating treatments quite well and radiation will continue as scheduled.
== END 2019-01-29 ==
LOC: M ONCR 10:04
PROVIDERS: ATTEND Radiology Radiation Oncology
DX: C50.911 Malignant neoplasm of unspecified site of right female breast (principal)

== ENCOUNTER 2019-02-28 10:02 | Outpatient (RCR) | payer MEDICARE ==
--- NOTE | 2019-02-01 11:29 | RADONC ---
RADIATION ONCOLOGY TREATMENT NOTE: DATE OF SERVICE: 02/01/2019 CHART NUMBER: [id number] Mrs. Woodruff is receiving radiation therapy to the right chest wall. So far, she has received a dose of 3060 cGy in 17 fractions. She was experiencing coughing. Chest x-ray was taken and showed bronchitis. On examination, there is occasional wheezing in both lung schafer, more so on the left. There is a few erythematous patches along the mastectomy scar with itching at times. I advised her to use hydrocortisone cream for the itching. Treatment will continue as planned. MTDD
--- NOTE | 2019-02-07 13:23 | RADONC ---
RADIATION ONCOLOGY PROGRESS NOTE DATE: 02/07/2019 CHART NUMBER: [id number] PROGRESS NOTE: Ms. Woodruff is presently a dose of 3780 cGy to her right chest wall and is tolerating treatments quite well at this point with no complaints related to her radiation therapy. She is having no chest wall or bone pain. REVIEW OF SYSTEMS: The patient's review of systems is noncontributory. Denies nausea, vomiting, fevers, chills, night sweats, diplopia, headaches, anxiety or depression, anorexia, weight loss, visual disturbances, chest pain, urinary or bowel difficulties, bone pain, or neurological problems. PHYSICAL EXAMINATION: The patient's skin is in good condition with no evidence of moist or dry desquamation. The remainder of her physical exam remains unchanged. Ms. Woodruff is tolerating treatments quite well and radiation will continue as scheduled. Edited: 02/07/2019 1324 vl
--- NOTE | 2019-02-09 14:04 | RADONC ---
RADIATION ONCOLOGY SIMULATION NOTE DATE: 02/09/2019 CHART NUMBER: [id number] SIMULATION NOTE: Ms. Woodruff was taken to the linear accelerator today for clinical setup of her right chest wall electron beam boost field. Setup was accomplished without difficulty or discomfort. Radiation treatment planning is underway and radiation treatments will begin subsequently. An immobilization device was created and will be used throughout the course of treatment. It was created without difficulty or discomfort. I was physically present throughout the course of clinical setup simulation.
--- NOTE | 2019-02-16 06:34 | RADONC ---
RADIATION ONCOLOGY PROGRESS NOTE DATE: 02/14/2019 CHART #: [id number] Ms. Woodruff is presently at a dose of 4680 cGy to her right chest wall and is tolerating treatments quite well at this point with no complaints related to her radiation therapy other than some itchiness of the skin. REVIEW OF SYSTEMS; The patient's review of systems is positive for skin itchiness otherwise noncontributory. Denies nausea, vomiting, fevers, chills, night sweats, diplopia, headaches, anxiety or depression, anorexia, weight loss, visual disturbances, chest pain, urinary or bowel difficulties, bone pain, or neurological problems. PHYSICAL EXAMINATION: The patient's skin is in good condition with no evidence of moist or dry desquamation. There is some erythema and tanning present over the treated field. Her skin nodules have responded nicely and appear to be almost gone. The remainder of her physical exam remains unchanged. Ms. Woodruff is tolerating treatments quite well and radiation will continue as scheduled.
--- NOTE | 2019-02-25 08:53 | RADONC ---
RADIATION ONCOLOGY PROGRESS NOTE DATE OF SERVICE: 02/21/2019 CHART NUMBER: [id number] Mrs. Woodruff, with a diagnosis of right-sided breast cancer/ recurrent, is currently receiving local regional radiotherapy. She is currently being treated with an electron beam to the right chest wall and she has been complaining of a great deal of right-sided chest wall pain. Both the medial aspect and the lateral aspect of the chest wall has been treated. Currently ongoing however is the more medial aspect where some recurrent nodules were palpable. She is rating her pain at a 9 to 10 over 10 and has been given Aquaphor. She appears to have some small areas of blistering in the superior region of the irradiated field. Because of her complaining of pain, I gave her the option of taking the rest of the week off from her radiation and resuming the treatments next week. She has opted to go ahead and take of the rest of the week off from her radiotherapy because she feels that her pain warrants a brief interruption. EXAMINATION FINDINGS: The skin within the irradiated volume shows focal small blistering areas and fairly marked hyperpigmentation, hypererythematous changes, as well as focal desquamation. IMPRESSION: Skin rash warranting 1 week off from radiation therapy. We will see her again next Thursday on February 27 to reevaluate her skin changes. TABATHA
[~2019-02-28 10:02] MED LIST changes: -VALA1TAB2 PO; +VALA1TAB64 PO
--- NOTE | 2019-02-28 13:27 | RADONC ---
RADIATION ONCOLOGY PROGRESS NOTE DATE: 02/28/2019 CHART #: [id number] Ms. Woodruff with a diagnosis of right breast/chest wall recurrence is currently receiving local regional radiotherapy. She has achieved a dose thus far of 30 treatments to the chest wall and was interrupted last week because of a brisk erythematous blush with focal desquamation and severe pain. It turns out the patient had been putting Aspercreme on her chest wall. I just found out about that today and she did not tell the nurse nor did she tell me that she was placing that on the skin. We instructed her to stop placement of the Aspercreme as of today. Otherwise, the skin looks slightly more erythematous than it was last week, but she says that Thursday which was this weekend, it was at its peak. Because it is still hurting and she still has some blistering and moist desquamation, I have taken the liberty of continuing her break from radiotherapy. She only has three more prescribed doses of radiotherapy to go and she will see Dr. Monzon next Thursday, at which point, they can decide how many more treatments are appropriate. She is improving with regards to her overall erythema at the current time and I believe that this time next week she will be in good enough shape to resume. Thank you for allowing us the opportunity of participation in management of this patient.
== END 2019-03-01 ==
LOC: M ONCR 10:02
PROVIDERS: ATTEND Radiology Radiation Oncology
DX: C50.911 Malignant neoplasm of unspecified site of right female breast (principal)

== ENCOUNTER 2019-03-09 10:14 | Outpatient (RCR) | payer MEDICARE ==
--- NOTE | 2019-03-08 06:54 | RADONC ---
RADIATION ONCOLOGY PROGRESS NOTE DATE: 03/07/2019 CHART NUMBER: [id number] Ms. Woodruff is thus far at a dose of 5400 cGy to her right chest wall. She has been on break and was last treated on 02/21/2019. The patient has come in now for reevaluation prior to reinitiation of treatment. The patient's skin appears to be healing nicely. There are still small areas of desquamation with some oozing but the majority of the skin is now dry and in good shape. I do not visually appreciate the patient's tumor nodules any longer although the patient reports that she could still feel them under the skin surface. She is having no significant pain at this time. REVIEW OF SYSTEMS: The patient's review of systems is positive for some discomfort of the skin, but is otherwise generally noncontributory. She denies nausea, vomiting, fevers, chills, night sweats, diplopia, headaches, anxiety or depression, anorexia, weight loss, visual disturbances, chest pain, urinary or bowel difficulties, bone pain, or neurological problems. PHYSICAL EXAMINATION: The patient's skin is healing. There continues to be largely just tanning and dry desquamation, but there is a small area of moist desquamation along the surgical scar line. The remainder of her physical exam remains unchanged. Ms. Woodruff only has a few treatments left and we have reinitiated treatment today. We will continue to follow her closely.
[~2019-03-09 10:14] MED LIST changes: +VITA1CHW7 PO
--- NOTE | 2019-03-10 11:19 | RADONC ---
RADIATION ONCOLOGY TREATMENT SUMMARY DATE: 03/09/2019 CHART NUMBER: [id number] DIAGNOSIS: Right breast cancer. STAGE: Recurrent. ECOG PERFORMANCE STATUS: 0. TREATMENT SUMMARY: Ms. 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 We treated the patient to her chest wall and skin nodules for a total dose of 5940 cGy delivered in 33 fractions over 62 elapsed days from 01/05/2019 through 03/09/2019. We initially treated the patient's entire right chest wall and lower level of lymph nodes for a dose of 5040 cGy delivered in 28 fractions of 180 cGy each over 42 elapsed days utilizing a 3-D conformal technique with medial and lateral tangential schafer and a 6 MV photon beam, 1/2 cm of tissue equivalent bolus was placed over that field. Following that we delivered an additional 900 cGy in 5 fractions of 180 cGy each to the primary area with suspicious skin nodules. That area was treated on a linear accelerator utilizing a 9 MeV electron beam prescribed to the 90% isodose line via en face technique. One cm of tissue equivalent bolus was placed over that field. Ms. Woodruff tolerated her treatments quite well with complete visual resolution of those skin nodules. The patient is scheduled see me again in 1 month for further followup. She will also continue to be followed by her other physicians as well. cc: MD Michaela Rivera MD Michael Hinman, PA Robert Kimball, MD
== END 2019-04-01 ==
LOC: M ONCR 10:14
PROVIDERS: ATTEND Radiology Radiation Oncology
DX: C50.911 Malignant neoplasm of unspecified site of right female breast (principal)

== ENCOUNTER → 2019-04-13 | Outpatient (CLI) | payer MEDICARE ==
[~2019-04-13] MED LIST changes: +VALA1TAB5 PO; -VALA1TAB64 PO
--- NOTE | 2019-04-14 11:59 | RADONC ---
DATE OF SERVICE: 04/13/2019 CHART NUMBER: [id number] DIAGNOSIS: Recurrent right breast cancer. ECOG PERFORMANCE STATUS: 0 Ms. Woodruff is a 73-year-old woman, who has a history of left breast cancer, which was treated with lumpectomy in the year 1999, and she had a diagnosis of right breast cancer, stage I in 2005 and was treated with a lumpectomy followed by MammoSite brachytherapy and letrozole from 2005 to 2010. She did well until she was found to have a local recurrence in the right breast. In July 2017, she underwent the right mastectomy. Pathology showed 3 cm moderately differentiated invasive ductal carcinoma of the right breast, ER/TN positive, HER2 negative, two of four lymph nodes were positive. She did well 4, 5, 6, and she began to notice small nodule forming in the skin on her right chest wall. On 10/26/2017, patient underwent punch biopsy of the right chest wall and was found to have recurrent ductal carcinoma. The patient reported for external radiation therapy, which was completed on 03/09/2019. She had a pretty good response. She said the tumor was decreased in size three-quarters of the original size; however, it is still felt nodule in the right chest wall. Recent followup with medical oncologist, she was told that her markers were fluctuating and is going up, and then she was referred to breast surgeon for the opinion. REVIEW OF SYSTEMS: She has no significant complaints. She denies any fever, chills, weight loss. She denies any respiratory symptoms. She has no cardiac problems. Denies palpitations or chest pain. She has no /GI symptoms. Musculoskeletal: She denies any bone pain, arthritis. PHYSICAL EXAMINATION: Patient alert, oriented, in good general condition. Lungs are clear. There are no wheezes or rales. Cardiac: Regular rhythm and rate. Abdomen is soft, nontender, nondistended without any palpable mass or organomegaly. Extremities: No edema, cyanosis. There is no palpable lymphadenopathy in the neck, axilla bilaterally. Breast: Chest wall examination, status post bilateral mastectomy. The right chest wall shows moderate hyperpigmentation from the radiation and mildly papular lesions scattered around in the right chest wall. Left chest wall is clear. IMPRESSION AND PLAN: Patient had right chest wall recurrence of invasive lobular carcinoma, ER positive, HER2 negative, on capecitabine after poor response to endocrine therapy, and she completed chest wall radiation therapy on 03/09/2019. According to the patient, the lesion has decreased significantly; however, there are small papular lesions throughout the right chest wall, so she is referred to breast surgeon for evaluation. I advised continued followup care with the physicians involved, and she was also asked to return here in 3 months for check up. LUISAD
== END ==
LOC: M ONCR 10:09
PROVIDERS: ATTEND Radiology Radiation Oncology
DX: Z08 Encounter for follow-up examination after completed treatment for malignant neoplasm (principal); C50.911 Malignant neoplasm of unspecified site of right female breast

== ENCOUNTER → 2019-04-20 | Outpatient (REF) | payer MEDICARE | LOC: M SFHCWAGY 13:50 | PROVIDERS: ATTEND Surgery | DX: C50.912 Malignant neoplasm of unspecified site of left female breast (principal); R22.2 Localized swelling, mass and lump, trunk ==

== ENCOUNTER 2019-05-15 11:26 | Inpatient (IN) | payer MEDICARE ==
[~2019-05-15] VITALS: Ht 154.9 cm; Wt 81.2 kg
[~2019-05-15 11:26] MED LIST changes: -FLUTISP; +FLUTISP NARES; -GABA600T4; +GABA600T4 PO
[2019-05-15] MEDS ORDERED: VENL75CA47 PO (11:39)
[2019-05-15] MEDS ORDERED: ZOLP5TAB PO (11:39)
[2019-05-15 12:15] LABS: BASO # 0.1 10^3/uL (0.0-0.2); BASO % 0.9 % (0.0-1.0); EOS # 0.2 10^3/uL (0.0-0.5); EOS % 2.2 % (0.0-3.0); HEMATOCRIT 42.6 % (36.0-47.0); HEMOGLOBIN 13.5 g/dl (12.0-15.5); LYMPH # 1.2 10^3/uL (1.5-5.0); MEAN CORPUSCULAR HEMOGLOBIN 32.7 pg (27.0-33.0); MEAN CORPUSCULAR HGB CONC 31.7 g/dl (32.0-36.5); MEAN CORPUSCULAR VOLUME 103.1 fl (80.0-96.0); MONO # 0.6 10^3/uL (0.0-0.8); MONO % 7.1 % (0.0-5.0); NEUTROPHILS # 5.7 10^3/uL (1.5-8.5); NEUTROPHILS % 73.4 % (36.0-66.0); PLATELET COUNT, AUTOMATED 299 10^3/uL (150-450); RED BLOOD COUNT 4.13 10^6/uL (4.00-5.40); WHITE BLOOD COUNT 7.7 10^3/uL (4.0-10.0)
[2019-05-15] MEDS ORDERED: ISOVUE-370 76% 100ML VIAL (Q9967) As Ordered ONE (12:28)
[2019-05-15 12:43] LABS: INFLUENZA A AMPLIFICATION NEGATIVE (NEGATIVE); INFLUENZA B AMPLIFICATION NEGATIVE (NEGATIVE)
[2019-05-15 12:47] LABS: ALBUMIN 3.6 GM/DL (3.2-5.2); ALT/SGPT 26 U/L (12-78); BILIRUBIN,DIRECT < 0.1 MG/DL (0.0-0.2); BILIRUBIN,TOTAL 0.2 MG/DL (0.2-1.0); BLOOD UREA NITROGEN 16 MG/DL (7-18); CALCIUM LEVEL 9.1 MG/DL (8.8-10.2); CARBON DIOXIDE LEVEL 29 MEQ/L (21-32); CHLORIDE LEVEL 108 MEQ/L (98-107); CK-MB VALUE MASS < 1.0 NG/ML (<3.6); CPK CREATINE PHOSPHOKINASE 48 U/L (26-192); CREATININE FOR GFR 0.69 MG/DL (0.55-1.30); GLOMERULAR FILTRATION RATE > 60.0 (>39); GLUCOSE, FASTING 113 MG/DL (70-100); MB/CK RELATIVE INDEX 2.08 (< OR =4); POTASSIUM SERUM 3.7 MEQ/L (3.5-5.1); SODIUM LEVEL 142 MEQ/L (136-145); TOTAL PROTEIN 7.1 GM/DL (6.4-8.2); TROPONIN I < 0.02 NG/ML (< 0.10)
[2019-05-15] MEDS ORDERED: ALL10TAB29 PO (14:23)
[2019-05-15] MEDS ORDERED: VITAD1000T PO (14:23)
[2019-05-15] MEDS ORDERED: FLUTICASONE PROP 0.05% NASAL SPRAY 16 GM (FLONASE) NARES PRN (15:00)
--- NOTE | 2019-05-15 15:40 | HPEPDOC ---
General Date of Admission May 15, 2019 at 14:55 Date of Service: May 15, 2019 Chief Complaint The patient is a 73-year-old female admitted with a reason for visit of Pleural Effusion. Source: Patient, RN/, Old records History of Present Illness 73 year old female with recurrent breast cancer now with chest wall recurrence bilaterally after bilateral mastectomy in 2017 presented to the ED with 3 days hisory fo exertional dyspnea. She complained of getting winded on walking to the bathroom. This morning she was in the kitchen making pancakes when she felt dizzy and nauseous. She denied any cough or wheezing. She does report occasional cough for years attritbuted to her post nasal drip. Work up in the ED with a CT angio of the chest showed moderate right sided pleural effusion. She just finished radiation of right chest wall in Mar 2019 and then found new nodules on the left chest wall about 3 weeks ago which also came back positive for cancer. She is admitted for SOB due to right pleural effusion. Home Medications Scheduled Alendronate Sodium (Alendronate Sodium) 70 Mg Tab, 1 TAB PO Q7D in the morning, at least 30 minutes before the first food, beverage, or medication of the day Calcium Carbonate (Calcium) 600 Mg Tab, 600 MG PO DAILY, (Reported) Cetirizine HCl (Cetirizine HCl) 10 Mg Tablet, 10 MG PO DAILY, (Reported) Cholecalciferol (Vitamin D3) (Vitamin D3) 1,000 Unit Tablet, 2,000 UNITS PO DAILY, (Reported) Gabapentin (Gabapentin) 600 Mg Tab, 600 MG PO BID, (Reported) Venlafaxine HCl (Venlafaxine HCl ER) 75 Mg Cap.er.24h, 75 MG PO DAILY, (Reported) Vit A/Vit C/Vit E/Zinc/Copper (Preservision Areds Softgel) 1 Each Capsule, 2 CAP PO DAILY, (Reported) Vitamin B Complex (Vitamin B Complex) 1 Cap Cap, 1 CAP PO DAILY, (Reported) Zolpidem Tartrate (Zolpidem Tartrate) 5 Mg Tablet, 5 MG PO QHS, (Reported) Scheduled PRN Fluticasone Propionate (Fluticasone Propionate) 50 Mcg/Act Spr, 2 SPRAYS NARES BID PRN for CONGESTION/ ALLERGIES, (Reported) Allergies Coded Allergies: Kpfitqo-Bmk-Shx Reductase Inhibitor (Verified Allergy, Severe, Weak muscles, 05/26/18) povidone-iodine (Verified Allergy, Intermediate, Rash, 05/26/18) soap (Verified Allergy, Intermediate, Rash, 05/26/18) Past Medical History Medical History Bilateral breast cancer in 1999( Left) and 2006 (right) s/p bilateral lumpectomy New Right breast cancer on 2018 had bilateral mastectomy in 2018 followed by right chest wall recurrence after 2 months of surgery had chemo for 1 year followed by RT. Left chest wall cancer found out in Apr 2019. appendectomy hystrectomy tonsillectomy cataracts right ankle surgery with plate and screws Family History Significant Family History: Cancer (breast cancer mother) Social History * Smoker: former Smoker Alcohol: rarely Drugs: denies A-FIB/CHADSVASC A-FIB History Current/History of A-Fib/PAF?: No Review of Systems Constitutional: Denies: Chills, Fever, Night Sweats Eyes: Denies: Pain, Vision change ENT: Denies: Head Aches, Ear Pain, Dysphagia Skin: Denies: Rash, Lesions, Breakdown Pulmonary: Reports: Dyspnea, Cough Cardiovascular: Denies: Chest Pain, Palpitations, Orthopnea, Paroxysmal Noc. Dyspnea, Lt Headedness Gastrointestinal: Reports: Nausea; Denies: Vomiting, Abdominal Pain, Diarrhea Genitourinary: Denies: Dysuria, Frequency, Incontinence, Retention Hematologic: Denies: Bruising, Bleeding Excessively Musculoskeletal: Denies: Neck Pain, Back Pain, Joint Pain, Muscle Pain, Spasms Physical Examination General Exam: Positive: Alert, Cooperative, No Acute Distress Eye Exam: Positive: PERRLA, Conjunctiva & lids normal, EOMI; Negative: Sclera icteric ENT Exam: Positive: Atraumatic, Mucous membr. moist/pink, Pharynx Normal Neck Exam: Positive: Supple; Negative: JVD, thyromegaly Chest Exam: Positive: Clear to auscultation, Normal air movement, Diminished (at the right base), Other (bilateral mastectomy) Heart Exam: Positive: Rate Normal, Regular Rhythm, Normal S1, Normal S2; Negative: Murmurs, Rubs Abdomen Exam: Positive: Normal bowel sounds, Soft, Other (obese); Negative: Tenderness, Hepatospenomegaly Extremity Exam: Positive: Normal pulses; Negative: Clubbing, Cyanosis, Edema Skin Exam: Positive: Nl turgor and temperature; Negative: Breakdown, Lesion Neuro Exam: Positive: Normal Gait, Normal Speech, Cranial Nerves 3-12 NL, Reflexes 2+ Vital Signs Vital Signs Date Time Temp Pulse Resp B/P (MAP) Pulse Ox O2 Delivery O2 Flow Rate FiO2 05/15/19 14:15 91 19 167/90 (115) 96 Room Air 05/15/19 11:26 97.8 Laboratory Data Labs 24H Laboratory Tests 2 05/15/19 12:04: Immature Granulocyte % (Auto) 0.4, Neutrophils (%) (Auto) 73.4H, Lymphocytes (%) (Auto) 16.0L, Monocytes (%) (Auto) 7.1H, Eosinophils (%) (Auto) 2.2, Basophils (%) (Auto) 0.9, Neutrophils # (Auto) 5.7, Lymphocytes # (Auto) 1.2L, Monocytes # (Auto) 0.6, Eosinophils # (Auto) 0.2, Basophils # (Auto) 0.1, Nucleated Red Blood Cells % (auto) 0.0, Anion Gap 5L, Glomerular Filtration Rate > 60.0, Calcium Level 9.1, Total Bilirubin 0.2, Direct Bilirubin < 0.1, Aspartate Amino Transf (AST/SGOT) 19, Alanine Aminotransferase (ALT/SGPT) 26, Alkaline Phosphata se 69, Total Creatine Kinase 48, Creatine Kinase MB < 1.0, Creatine Kinase MB Relative Index 2.08, Troponin I < 0.02, Total Protein 7.1, Albumin 3.6, Albumin/Globulin Ratio 1.03, Influenza Type A (RT-PCR) NEGATIVE, Influenza Type B (RT-PCR) NEGATIVE CBC/BMP Laboratory Tests 05/15/19 12:04 Assessment/Plan 73 year old female with recurrent breast cancer now with chest wall recurrence bilaterally after bilateral mastectomy in 2017 presented to the ED with 3 days hisory fo exertional dyspnea. She complained of getting winded on walking to the bathroom. This morning she was in the kitchen making pancakes when she felt dizzy and nauseous. She denied any cough or wheezing. She does report occasional cough for years attritbuted to her post nasal drip. Work up in the ED with a CT angio of the chest showed moderate right sided pleural effusion. She just finis hed radiation of right chest wall in Mar 2019 and then found new nodules on the left chest wall about 3 weeks ago which also came back positive for cancer. She is admitted for SOB due to right pleural effusion. Right pleural effusion most probably malignant with hr histroy of extensive cancers will schedule for pleural tap tomorrow Metastatic breast cancer follow up Dr Fraga. Post nasal drip continue cetrizine and nasal spray. Plan / VTE VTE Prophylaxis Ordered?: Yes MACEY MATAMOROS MD May 15, 2019 15:40
[2019-05-15 16:29] VITALS: BP 160/80
--- NOTE | 2019-05-15 16:37 | REP ---
REASON: Cough and dyspnea. COMPARISON: Multiple, the latest 04/03/2018. There is a right pleural effusion, which has developed since the last exam. This silhouettes out the right diaphragmatic surface. The lung schafer are otherwise unchanged from the prior exam. The cardiac silhouette is magnified by technique. The technique utilized in obtaining the radiograph has magnified the cardiac silhouette and accentuated the interstitial markings. There is thoracic aortic tortuosity, status quo. There is no change in the osseous structures. IMPRESSION: Right-sided pleural effusion. Electronically Signed by Eldon Mckeon DO 05/15/2019 04:48 P
[2019-05-15 22:00] VITALS: BP 142/78
[2019-05-15] MEDS: zolPIDEM TARTRATE 5 MG TAB PO SCH (22:28)
[2019-05-15] MEDS: GABAPENTIN 300 MG CAP PO SCH (22:29)
[2019-05-16 06:00] VITALS: BP 147/93
[2019-05-16 06:08] LABS: BASO # 0.1 10^3/uL (0.0-0.2); BASO % 0.7 % (0.0-1.0); EOS # 0.3 10^3/uL (0.0-0.5); EOS % 3.7 % (0.0-3.0); HEMOGLOBIN 13.1 g/dl (12.0-15.5); LYMPH # 1.7 10^3/uL (1.5-5.0); LYMPH % 22.9 % (24.0-44.0); MEAN CORPUSCULAR HEMOGLOBIN 33.2 pg (27.0-33.0); MEAN CORPUSCULAR VOLUME 104.1 fl (80.0-96.0); MONO # 0.7 10^3/uL (0.0-0.8); MONO % 9.2 % (0.0-5.0); NEUTROPHILS # 4.7 10^3/uL (1.5-8.5); NEUTROPHILS % 63.2 % (36.0-66.0); PLATELET COUNT, AUTOMATED 291 10^3/uL (150-450); RED BLOOD COUNT 3.94 10^6/uL (4.00-5.40); WHITE BLOOD COUNT 7.4 10^3/uL (4.0-10.0)
[2019-05-16 06:27] LABS: BLOOD UREA NITROGEN 15 MG/DL (7-18); CALCIUM LEVEL 9.1 MG/DL (8.8-10.2); CARBON DIOXIDE LEVEL 32 MEQ/L (21-32); CHLORIDE LEVEL 109 MEQ/L (98-107); CREATININE FOR GFR 0.73 MG/DL (0.55-1.30); GLOMERULAR FILTRATION RATE > 60.0 (>39); GLUCOSE, FASTING 94 MG/DL (70-100); POTASSIUM SERUM 4.9 MEQ/L (3.5-5.1); SODIUM LEVEL 145 MEQ/L (136-145)
--- NOTE | 2019-05-16 07:24 | ECGEPIP ---
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
--- NOTE | 2019-05-16 07:29 | REP ---
REASON: Dyspnea HISTORY: Carcinoma. COMPARISON: Standard contrast chest CT of 05/25/2018. CONTRAST: 100 mL of Isovue 370. There is excellent visualization of the pulmonary arterial vasculature. There are no focal filling defects present that would be considered consistent with pulmonary emboli. The thoracic aorta is within normal limits. There is no mediastinal mass or adenopathy. There is a small to moderate right pleural effusion. There is no pericardial effusion. The imaged upper abdomen is within normal limits. The imaged osseous structures are within normal limits. Evaluation of the lung schafer show compressive atelectatic changes in the right lower lobe due to the effusion. There is a 5 mm sized nodule in the right major fissure with other smaller fissural nodules as well. These represent a change from the prior exam. There are a few scattered calcified granulomas status quo. IMPRESSION: 1. There is no evidence of a pulmonary embolus. 2. There is a small to moderate right pleural effusion causing compressive subsegmental atelectatic changes in the right lower lobe. 3. Pulmonary nodules as described above. According to the revised Fleischner's Society criteria, the right fissural nodules represent category 3 nodules for which 6-month followup CT chest is recommended. 4. Other findings as described above. Electronically Signed by Eldon Mckeon DO 05/16/2019 01:28 P
[2019-05-16] MEDS: CETIRIZINE (ZyrTEC) 10 MG TAB PO SCH (09:17)
[2019-05-16] MEDS: VENLAFAXINE **XR** 75MG CAPSULE PO SCH (09:17)
[2019-05-16] MEDS: VITAMIN D 1,000 INTERNATIONAL UNITS TABLET PO SCH (09:17)
[2019-05-16] MEDS: GABAPENTIN 300 MG CAP PO SCH ×2 (09:17→21:27)
--- NOTE | 2019-05-16 10:03 | IPNPDOC ---
Subjective Date Seen The patient was seen on 05/16/19. Subjective Chief Complaint/HPI No issues overnight. No worsening of SOB, no abdominal pain , nausea or vomiting or diarreha. Objective Physical Examination General Exam: Positive: Alert, Cooperative, No Acute Distress Eye Exam: Positive: PERRLA, Conjunctiva & lids normal, EOMI; Negative: Sclera icteric ENT Exam: Positive: Atraumatic, Mucous membr. moist/pink, Pharynx Normal Neck Exam: Positive: Supple; Negative: JVD, thyromegaly Chest Exam: Positive: Clear to auscultation, Normal air movement, Diminished (at the right base), Other (bilateral mastectomy) Heart Exam: Positive: Rate Normal, Regular Rhythm, Normal S1, Normal S2; Negative: Murmurs, Rubs Abdomen Exam: Positive: Normal bowel sounds, Soft, Other (obese); Negative: Tenderness, Hepatospenomegaly Extremity Exam: Positive: Normal pulses; Negative: Clubbing, Cyanosis, Edema Skin Exam: Positive: Nl turgor and temperature; Negative: Breakdown, Lesion Neuro Exam: Positive: Normal Gait, Normal Speech, Cranial Nerves 3-12 NL, Reflexes 2+ Assessment /Plan Assessment 73 year old female with recurrent breast cancer now with chest wall recurrence bilaterally after bilateral mastectomy in 2017 presented to the ED with 3 days hisory fo exertional dyspnea. She complained of getting winded on walking to the bathroom. This morning she was in the kitchen making pancakes when she felt dizzy and nauseous. She denied any cough or wheezing. She does report occasional cough for years attritbuted to her post nasal drip. Work up in the ED with a CT angio of the chest showed moderate right sided pleural effusion. Negative for PE. She just finished radiation of right chest wall in Mar 2019 and then found new nodules on the left chest wall about 3 weeks ago which also came back positive for cancer. She is admitted for SOB due to right pleural effusion. Right pleural effusion most probably malignant with her histroy of extensive cancers will schedule for pleural tap tomorrow Metastatic breast cancer follow up Dr Fraga. Post nasal drip continue cetrizine and nasal spray. Plan/VTE VTE Prophylaxis Ordered?: Yes VS, I&O, 24H, Fishbone Vital Signs/I&O Vital Signs Date Time Temp Pulse Resp B/P (MAP) Pulse Ox O2 Delivery O2 Flow Rate FiO2 05/16/19 06:00 98.4 83 18 147/93 (111 93 Room Air I&O- Last 24 Hours up to 6 AM 05/16/19 06:00 Intake Total 840 ml Output Total 150 ml Balance 690 ml Laboratory Data 24H LABS Laboratory Tests 2 05/15/19 12:04: Immature Granulocyte % (Auto) 0.4, Neutrophils (%) (Auto) 73.4H, Lymphocytes (%) (Auto) 16.0L, Monocytes (%) (Auto) 7.1H, Eosinophils (%) (Auto) 2.2, Basophils (%) (Auto) 0.9, Neutrophils # (Auto) 5.7, Lymphocytes # (Auto) 1.2L, Monocytes # (Auto) 0.6, Eosinophils # (Auto) 0.2, Basophils # (Auto) 0.1, Nucleated Red Blood Cells % (auto) 0.0, Anion Gap 5L, Glomerular Filtration Rate > 60.0, Calcium Level 9.1, Total Bilirubin 0.2, Direct Bilirubin < 0.1, Aspartate Amino Transf (AST/SGOT) 19, Alanine Aminotransferase (ALT/SGPT) 26, Alkaline Phosphatase 69, Total Creatine Kinase 48, Creatine Kinase MB < 1.0, Creatine Kinase MB Relative Index 2.08, Troponin I < 0.02, Total Protein 7.1, Albumin 3.6, Albumin/Globulin Ratio 1.03, Influenza Type A (RT-PCR) NEGATIVE, Influenza Type B (RT-PCR) NEGATIVE 05/16/19 05:30: Immature Granulocyte % (Auto) 0.3, Neutrophils (%) (Auto) 63.2, Lymphocytes (%) (Auto) 22.9L, Monocytes (%) (Auto) 9.2H, Eosinophils (%) (Auto) 3.7H, Basophils (%) (Auto) 0.7, Neutrophils # (Auto) 4.7, Lymphocytes # (Auto) 1.7, Monocytes # (Auto) 0.7, Eosinophils # (Auto) 0.3, Basophils # (Auto) 0.1, Nucleated Red Blood Cells % (auto) 0.0, Anion Gap 4L, Glomerular Filtration Rate > 60.0, Calcium Level 9.1 CBC/BMP Laboratory Tests 05/15/19 12:04 05/16/19 05:30 MACEY MATAMOROS MD May 16, 2019 10:03
[2019-05-16 14:00] VITALS: BP 158/62
[2019-05-16 14:00] LABS: PH BODY FLUID 7.596 UNITS (NOT ESTABLISHED); SOURCE, BODY FLUID pH PLEURAL
[2019-05-16 14:14] LABS: APPEARANCE, BODY FLUID HAZY (CLEAR); PLEURAL FL COLOR YELLOW (COLORLESS); SOURCE, BODY FLUID PLEURAL
[2019-05-16 14:30] VITALS: BP 154/94
--- NOTE | 2019-05-16 14:30 | REP ---
CHEST TWO VIEWS: Two views of the chest are performed and compared to a prior study 05/15/2019. The patient is status post right thoracentesis. There is a decreased amount of right pleural fluid. There is no pneumothorax. There is very mild residual right pleural fluid remaining. The heart is normal in size. There is calcification and tortuosity of the thoracic aorta. Mediastinal silhouette is otherwise unremarkable. There is osteopenia with mild degenerative changes of the spine, with mild stable compression deformity of a lower thoracic vertebral body again noted. Electronically Signed by Hussain Brothers MD 05/16/2019 06:21 P
[2019-05-16] MEDS ORDERED: IBUPROFEN 800 MG TAB PO PRN (14:45)
[2019-05-16 14:50] LABS: AMYLASE, BODY FLUID 29 U/L (NOT ESTABLISHED); LDH, BODY FLUID 192 U/L (NOT ESTABLISHED); SOURCE, BODY FLUID AMYLASE PLEURAL; SOURCE, BODY FLUID GLUCOSE PLEURAL; SOURCE, BODY FLUID LDH PLEURAL; SOURCE, BODY FLUID TOT PROTEIN PLEURAL; TOTAL PROTEIN, BODY FLUID 4.4 G/DL (NOT ESTABLISHED)
[2019-05-16] MEDS: PANTOPRAZOLE 40MG TAB (PROTONIX) PO SCH (14:50)
--- NOTE | 2019-05-16 18:14 | REP ---
ULTRASOUND-GUIDED RIGHT THORACENTESIS The procedure was performed under the direct supervision of Dr. Brothers. The risks and benefits of the procedure were explained to the patient and informed consent was obtained. The right pleural effusion was localized using ultrasound guidance. The skin was prepped and draped in a sterile fashion. 1% lidocaine was used as a local anesthetic. An 8-Upper Sorbian multi side-hole catheter was inserted using trocar technique. 540 ml of pink colored fluid was withdrawn and sent to lab for analysis. The patient tolerated the procedure well and there no immediate complications. Electronically Signed by JOCELYN Garza 05/16/2019 05:43 P Electronically Signed by Hussain Brothers MD 05/16/2019 06:05 P
[2019-05-16] MEDS: zolPIDEM TARTRATE 5 MG TAB PO SCH (21:27)
[2019-05-16 22:00] VITALS: BP 151/86
[2019-05-16] MEDS ORDERED: SENNA 8.6 MG TAB (SENOKOT) PO PRN ×2 (22:15)
[2019-05-17 06:00] VITALS: BP 144/76
[2019-05-17 06:16] LABS: BASO % 0.5 % (0.0-1.0); EOS # 0.3 10^3/uL (0.0-0.5); EOS % 3.8 % (0.0-3.0); HEMATOCRIT 41.8 % (36.0-47.0); HEMOGLOBIN 13.4 g/dl (12.0-15.5); LYMPH # 1.4 10^3/uL (1.5-5.0); LYMPH % 17.4 % (24.0-44.0); MEAN CORPUSCULAR HEMOGLOBIN 33.2 pg (27.0-33.0); MEAN CORPUSCULAR HGB CONC 32.1 g/dl (32.0-36.5); MEAN CORPUSCULAR VOLUME 103.5 fl (80.0-96.0); MONO # 0.7 10^3/uL (0.0-0.8); MONO % 9.5 % (0.0-5.0); NEUTROPHILS # 5.3 10^3/uL (1.5-8.5); NEUTROPHILS % 68.5 % (36.0-66.0); PLATELET COUNT, AUTOMATED 280 10^3/uL (150-450); RED BLOOD COUNT 4.04 10^6/uL (4.00-5.40); WHITE BLOOD COUNT 7.8 10^3/uL (4.0-10.0)
[2019-05-17 06:43] LABS: BLOOD UREA NITROGEN 16 MG/DL (7-18); CALCIUM LEVEL 9.1 MG/DL (8.8-10.2); CARBON DIOXIDE LEVEL 27 MEQ/L (21-32); CHLORIDE LEVEL 109 MEQ/L (98-107); CREATININE FOR GFR 0.61 MG/DL (0.55-1.30); GLOMERULAR FILTRATION RATE > 60.0 (>39); GLUCOSE, FASTING 104 MG/DL (70-100); POTASSIUM SERUM 3.5 MEQ/L (3.5-5.1); SODIUM LEVEL 143 MEQ/L (136-145)
[2019-05-17] MEDS: PANTOPRAZOLE 40MG TAB (PROTONIX) PO SCH (10:06)
[2019-05-17] MEDS: GABAPENTIN 300 MG CAP PO SCH (10:06)
[2019-05-17] MEDS: VITAMIN D 1,000 INTERNATIONAL UNITS TABLET PO SCH (10:06)
[2019-05-17] MEDS: CETIRIZINE (ZyrTEC) 10 MG TAB PO SCH (10:06)
[2019-05-17] MEDS: VENLAFAXINE **XR** 75MG CAPSULE PO SCH (10:06)
--- NOTE | 2019-05-17 11:32 | DS.PDOC ---
Discharge Summary General Date of Admission May 15, 2019 at 14:55 Date of Discharge 05/17/19 Discharge Summary PROCEDURES PERFORMED DURING STAY: Thoracocentesis. DISCHARGE DIAGNOSES: Malignant Pleural effusion Metastatic Breast Post nasal drip COMPLICATIONS/CHIEF COMPLAINT: Pleural Effusion. HISTORY OF PRESENT ILLNESS: See history and physical HOSPITAL COURSE: 73 year old female with recurrent breast cancer now with chest wall recurrence bilaterally after bilateral mastectomy in 2017 presented to the ED with 3 days history fo exertional dyspnea. She complained of getting winded on walking to the bathroom. This morning she was in the kitchen making pancakes when she felt dizzy and nauseous. She denied any cough or wheezing. She does report occasional cough for years attributed to her post nasal drip. Work up in the ED with a CT angio of the chest showed moderate right sided pleural effusion. Negative for PE. She just finished radiation of right chest wall in Mar 2019 and then found new nodules on the left chest wall about 3 weeks ago which also came back positive for cancer. She is admitted for SOB due to right pleural effusion. Right pleural effusion Malignant s/p pleural tap 540 cc removed cytology positive for malignant cells. Feels suggestive of metastatic adenocarcinoma. follow up Dr Fraga Metastatic breast cancer follow up Dr Fraga. Post nasal drip continue cetrizine and nasal spray. DISCHARGE MEDICATIONS: Please see below. ALLERGIES: Please see below. PHYSICAL EXAMINATION ON DISCHARGE: VITAL SIGNS: Please see below. General Exam: Positive: Alert, Cooperative, No Acute Distress Eye Exam: Positive: PERRLA, Conjunctiva & lids normal, EOMI; Negative: Sclera icteric ENT Exam: Positive: Atraumatic, Mucous membr. moist/pink, Pharynx Normal Neck Exam: Positive: Supple; Negative: JVD, thyromegaly Chest Exam: Positive: Clear to auscultation, Normal air movement, Diminished (at the right base), Other (bilateral mastectomy) Heart Exam: Positive: Rate Normal, Regular Rhythm, Normal S1, Normal S2; Negative: Murmurs, Rubs Abdomen Exam: Positive: Normal bowel sounds, Soft, Other (obese); Negative: Tenderness, Hepatospenomegaly Extremity Exam: Positive: Normal pulses; Negative: Clubbing, Cyanosis, Edema Skin Exam: Positive: Nl turgor and temperature; Negative: Breakdown, Lesion Neuro Exam: Positive: Normal Gait, Normal Speech, Cranial Nerves 3-12 NL, Reflexes 2+ LABORATORY DATA: Please see below. ACTIVITY: [As tolerated]. DIET: regular DISPOSITION: 01 Home, Self-Care. DISCHARGE INSTRUCTIONS: Follow up with Dr Fraga Follow up final Pleural fluid cultures for fungus, AFb, cytology DISCHARGE CONDITION: [Stable]. TIME SPENT ON DISCHARGE: 35 minutes. Vital Signs/I&Os Vital Signs Date Time Temp Pulse Resp B/P (MAP) Pulse Ox O2 Delivery O2 Flow Rate FiO2 05/17/19 06:00 98.7 81 18 144/76 (98) 94 Room Air I&O- Last 24 Hours up to 6 AM 05/17/19 05:59 Intake Total 960 ml Output Total 750 ml Balance 210 ml Laboratory Data Labs 24H Laboratory Tests 2 05/16/19 13:35: Body Fluid pH 7.596, Body Fluid pH Source PLEURAL, Body Fluid WBC (Auto) 2600H, Body Fluid RBC (Auto) 12, Body Fluid Mononuclear Cells % Auto 97.7H, Fluid Polymorphonuclear Cell % Auto 2.3H, Body Fluid Glucose Source PLEURAL, Body Fluid Glucose 88, Body Fluid Protein Source PLEURAL, Body Fluid Total Protein 4.4, Body Fluid LDH Source PLEURAL, Body Fluid Lactate Dehydrogenase 192, Body Fluid Amylase Source PLEURAL, Body Fluid Amylase 29, Pleural Fluid Source PLEURAL, Pleural Fluid Color YELLOW, Pleural Fluid Appearance HAZY 05/17/19 05:54: Immature Granulocyte % (Auto) 0.3, Neutrophils (%) (Auto) 68.5H, Lymphocytes (%) (Auto) 17.4L, Monocytes (%) (Auto) 9.5H, Eosinophils (%) (Auto) 3.8H, Basophils (%) (Auto) 0.5, Neutrophils # (Auto) 5.3, Lymphocytes # (Auto) 1.4L, Monocytes # (Auto) 0.7, Eosinophils # (Auto) 0.3, Basophils # (Auto) 0.0, Nucleated Red Blood Cells % (auto) 0.0, Anion Gap 7L, Glomerular Filtration Rate > 60.0, Calcium Level 9.1 CBC/BMP Laboratory Tests 05/17/19 05:54 Microbiology Microbiology 05/17/19 Acid Fast Stain, Received Pending 05/17/19 Mycobacterial Culture, Received Pending 05/16/19 Fungal Smear, Received Pending 05/16/19 Fungal Culture, Received Pending 05/16/19 Gram Stain - Final, Resulted 3/16/20 Body Fluid Culture, Resulted Pending Discharge Medications Scheduled Alendronate Sodium (Alendronate Sodium) 70 Mg Tab, 1 TAB PO Q7D in the morning, at least 30 minutes before the first food, beverage, or medication of the day Calcium Carbonate (Calcium) 600 Mg Tab, 600 MG PO DAILY, (Reported) Cetirizine HCl (Cetirizine HCl) 10 Mg Tablet, 10 MG PO DAILY, (Reported) Cholecalciferol (Vitamin D3) (Vitamin D3) 1,000 Unit Tablet, 2,000 UNITS PO DAILY, (Reported) Gabapentin (Gabapentin) 600 Mg Tab, 600 MG PO BID, (Reported) Venlafaxine HCl (Venlafaxine HCl ER) 75 Mg Cap.er.24h, 75 MG PO DAILY, (Reported) Vit A/Vit C/Vit E/Zinc/Copper (Preservision Areds Softgel) 1 Each Capsule, 2 CAP PO DAILY, (Reported) Vitamin B Complex (Vitamin B Complex) 1 Cap Cap, 1 CAP PO DAILY, (Reported) Zolpidem Tartrate (Zolpidem Tartrate) 5 Mg Tablet, 5 MG PO QHS, (Reported) Scheduled PRN Fluticasone Propionate (Fluticasone Propionate) 50 Mcg/Act Spr, 2 SPRAYS NARES BID PRN for CONGESTION/ ALLERGIES, (Reported) Allergies Coded Allergies: Wvshvdr-Bny-Wgr Reductase Inhibitor (Verified Allergy, Severe, Weak muscles, 05/26/18) povidone-iodine (Verified Allergy, Intermediate, Rash, 05/26/18) soap (Verified Allergy, Intermediate, Rash, 05/26/18) MACEY MATAMOROS MD May 17, 2019 11:32
== END 2019-05-17 10:57 | disposition home or self-care (01) | DRG 845 ==
LOC: M ED 11:26 → M ED INP 14:55 → M MSPAV 16:29
PROVIDERS: ADMIT Internal Medicine Nephrology; ATTEND Internal Medicine Nephrology
PROC: 0W993ZX Drainage of Right Pleural Cavity, Percutaneous Approach, Diagnostic (ICD-10-PCS; principal; 2019-05-16 17:00)
DX: C79.89 Secondary malignant neoplasm of other specified sites (principal); J91.0 Malignant pleural effusion; R09.82 Postnasal drip; C50.919 Malignant neoplasm of unspecified site of unspecified female breast; Z92.3 Personal history of irradiation; Z79.899 Other long term (current) drug therapy; Z88.8 Allergy status to other drugs, medicaments and biological substances; Z91.048 Other nonmedicinal substance allergy status; Z90.79 Acquired absence of other genital organ(s); Z90.49 Acquired absence of other specified parts of digestive tract; Z98.41 Cataract extraction status, right eye; Z98.42 Cataract extraction status, left eye; Z87.891 Personal history of nicotine dependence

== ENCOUNTER → 2019-05-19 | Outpatient (CLI) | payer MEDICARE ==
[~2019-05-19] MED LIST changes: +ALL10TAB29 PO; +PRED20TA PO; +PROV108A INH; +VITAD1000T PO
--- NOTE | 2019-05-19 17:18 | REP ---
CHEST, TWO VIEWS: Two views of the chest are performed and compared to prior study of 05/16/2019. There is a small right pleural effusion. This has slightly increased since the prior study. Otherwise the lungs are clear with no new infiltrate. The heart is normal in size. There is tortuosity of the thoracic aorta. Mediastinal silhouette is unchanged. IMPRESSION: Small right pleural effusion has slightly increased in size when compared to the prior study 05/16/2019. Electronically Signed by Hussain Brothers MD 05/19/2019 05:45 P
== END ==
LOC: M RAD 16:31
PROVIDERS: ATTEND Internal Medicine Medical Oncology
DX: C50.919 Malignant neoplasm of unspecified site of unspecified female breast (principal)

== ENCOUNTER 2019-05-23 09:22 | Emergency (ER) | payer MEDICARE ==
[~2019-05-23] VITALS: Ht 154.9 cm; Wt 79.5 kg
[~2019-05-23 09:22] MED LIST changes: -PRED20TA PO; -PROV108A INH
[2019-05-23 09:55] LABS: BASO # 0.1 10^3/uL (0.0-0.2); BASO % 0.7 % (0.0-1.0); EOS # 0.3 10^3/uL (0.0-0.5); HEMOGLOBIN 13.8 g/dl (12.0-15.5); LYMPH # 1.4 10^3/uL (1.5-5.0); LYMPH % 19.5 % (24.0-44.0); MEAN CORPUSCULAR HEMOGLOBIN 32.5 pg (27.0-33.0); MEAN CORPUSCULAR HGB CONC 31.4 g/dl (32.0-36.5); MEAN CORPUSCULAR VOLUME 103.5 fl (80.0-96.0); MONO # 0.6 10^3/uL (0.0-0.8); MONO % 8.2 % (0.0-5.0); NEUTROPHILS # 4.6 10^3/uL (1.5-8.5); NEUTROPHILS % 67.2 % (36.0-66.0); PLATELET COUNT, AUTOMATED 311 10^3/uL (150-450); RED BLOOD COUNT 4.25 10^6/uL (4.00-5.40); WHITE BLOOD COUNT 6.9 10^3/uL (4.0-10.0)
--- NOTE | 2019-05-23 10:07 | REP ---
Clinical: Cough and dyspnea. Comparison: 05/19/2019. Findings: Small right pleural effusion and right basilar atelectasis again suggested. Remainder of lung schafer are clear. No pneumothorax. Mediastinum and cardiac silhouette normal. Skeletal structures intact. Impression: Small right pleural effusion. Electronically Signed by Amaury Tinajero MD 05/23/2019 09:58 A
[2019-05-23 10:08] LABS: INR 1.08; PROTHROMBIN TIME 13.7 SECONDS (11.8-14.0)
[2019-05-23 10:19] LABS: ALBUMIN 3.6 GM/DL (3.2-5.2); ALT/SGPT 33 U/L (12-78); BILIRUBIN,DIRECT 0.1 MG/DL (0.0-0.2); BILIRUBIN,TOTAL 0.4 MG/DL (0.2-1.0); BLOOD UREA NITROGEN 15 MG/DL (7-18); CALCIUM LEVEL 9.4 MG/DL (8.8-10.2); CARBON DIOXIDE LEVEL 31 MEQ/L (21-32); CHLORIDE LEVEL 108 MEQ/L (98-107); CK-MB VALUE MASS < 1.0 NG/ML (<3.6); CPK CREATINE PHOSPHOKINASE 47 U/L (26-192); CREATININE FOR GFR 0.76 MG/DL (0.55-1.30); GLOMERULAR FILTRATION RATE > 60.0 (>39); GLUCOSE, FASTING 92 MG/DL (70-100); MB/CK RELATIVE INDEX 2.13 (< OR =4); NT-PRO BNP 67 PG/ML (<450); POTASSIUM SERUM 3.8 MEQ/L (3.5-5.1); SODIUM LEVEL 143 MEQ/L (136-145); TOTAL PROTEIN 7.3 GM/DL (6.4-8.2); TROPONIN I < 0.02 NG/ML (< 0.10)
--- NOTE | 2019-05-23 10:29 | REP ---
Clinical: Right-sided chest pain. Technique: Axial noncontrast images from the thoracic inlet to the upper abdomen with coronal and sagittal re-formations. Comparison: 05/15/2019. Findings: Small right pleural effusion is similar to prior examination and small scattered primarily right-sided perifissural nodules and small calcified nodules appear essentially unchanged. Left hemithorax is relatively clear. Mediastinum is relatively normal / stable with minimal atherosclerotic changes again noted. No aortic aneurysm, cardiomegaly or pericardial effusion. Subtle fatty infiltration in the right axillary region is again noted and unchanged. Osseous structures appear intact. Impression: Small right pleural effusion and primarily right sided perifissural nodules along with trace right basilar atelectasis relatively unchanged. Electronically Signed by Amaury Tinajero MD 05/23/2019 10:21 A
[2019-05-23] MEDS ORDERED: GABAPENTIN 300 MG CAP PO ONE (12:30)
[2019-05-23 12:48] LABS: D-DIMER QUANT 837.6 ng/ml (<500)
[2019-05-23] MEDS ORDERED: ISOVUE-370 76% 100ML VIAL (Q9967) As Ordered ONE (13:15)
[2019-05-23] MEDS ORDERED: ALBUTEROL 90 MCG/ACT 8GM HFA INHALER INH ONE (14:00)
--- NOTE | 2019-05-23 14:00 | REP ---
Clinical: Acute chest pain. Technique: Axial contrast enhanced images from the thoracic inlet to the upper abdomen using 75 ml Isovue 370 intravenous contrast material with coronal and sagittal re-formations. Comparison: 05/15/2019 Findings: Satisfactory enhancement of the pulmonary vasculature is achieved and no filling defects are identified to suggest pulmonary embolus. Thoracic aorta is normal caliber without aneurysm or dissection. Heart and pericardium are normal. Small/moderate right pleural effusion and right passive atelectasis noted along with small primarily right perifissural nodules and reactive right hilar lymph nodes unchanged from prior examination. Impression: No evidence for pulmonary embolus. Small/moderate right pleural effusion and right passive atelectasis along with small perifissural nodules unchanged from prior examinations. Electronically Signed by Amaury Tinajero MD 05/23/2019 01:53 P
[2019-05-23] MEDS ORDERED: PRED20TA PO (14:25)
[2019-05-23] MEDS ORDERED: PROV108A INH (14:25)
[2019-05-23 14:30] VITALS: BP 167/78
[2019-05-23] MEDS ORDERED: predniSONE 20 MG TAB PO ONE (14:30)
--- NOTE | 2019-05-24 05:34 | ECGEPIP ---
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
--- NOTE | 2019-05-24 15:37 | ED PDOC ---
Post-Departure Follow-Up symone brown faxed formal report of ct chest for fu Marco Antonio Zazueta MD May 24, 2019 15:37
== END 2019-05-23 15:25 | disposition home or self-care (01) ==
LOC: M ED 09:22
DX: R06.02 Shortness of breath (principal); Z79.899 Other long term (current) drug therapy; Z88.8 Allergy status to other drugs, medicaments and biological substances; Z87.891 Personal history of nicotine dependence
CPT/HCPCS: 36415; 71045; 71250; 71275; 80048; 80076; 82550; 82553; 83880; 84484; 85025; 85379; 85610; 87486; 87581; 87633; 87798; 93005; 93041; 94760; 99284; Q9967

== ENCOUNTER → 2019-05-24 | Outpatient (CLI) | payer MEDICARE ==
[~2019-05-24] MED LIST changes: +PRED20TA PO; +PROV108A INH
--- NOTE | 2019-05-24 15:59 | REP ---
PET/CT: HISTORY: Restaging breast carcinoma. Comparison PET/CT study April 13, 2018. Comparison CT chest May 23, 2019. Pulmonary nodules. TECHNIQUE: 50 minutes following the intravenous injection of a 9.01 mCi dose of F-18 FDG, three-dimensional PET scintigraphy is acquired from the skull base to the proximal thighs. Triplanar noncontrast CT scanning is acquired through the same anatomic range for attenuation correction, and image registration with scan parameters optimized to minimize radiation exposure to the patient. PET scintigraphy and CT datasets were fused and displayed on a workstation with multiplanar and projection display capability. PET/CT FINDINGS: No abnormalities noted in the head and neck soft tissues. The patient is status post right mastectomy. No abnormal hypermetabolic uptake is seen in the chest wall or right axilla. There is however a hypermetabolic warren focus in the left axilla with maximum standard uptake value 7.59. The lymph node measures only 1 cm in diameter. This is a new finding. In addition, there is hypermetabolic adenopathy in the right hilus with maximum standard uptake value 5.11. There is a hypermetabolic subcarinal lymph node with maximum standard uptake value 3.36. In addition, there is a new right pleural effusion with subtle non-hypermetabolic tracer distribution in the pleural space, maximum standard uptake value 2.43. No abnormal skeletal hypermetabolic uptake is seen. No abnormal uptake is seen in the abdomen or pelvis. IMPRESSION: There is evidence of metastatic hypermetabolic uptake in a 1 cm left axillary lymph node, and a right hilar and right subcarinal lymph node. There is a new right pleural effusion. Electronically Signed by Scottie Jurado MD 05/24/2019 05:18 P
== END ==
LOC: M PLARAD 12:25
PROVIDERS: ATTEND Internal Medicine Medical Oncology
DX: R93.89 Abnormal findings on diagnostic imaging of other specified body structures (principal); C50.811 Malignant neoplasm of overlapping sites of right female breast; C50.812 Malignant neoplasm of overlapping sites of left female breast; Z90.11 Acquired absence of right breast and nipple; J90 Pleural effusion, not elsewhere classified
CPT/HCPCS: 78815; A9552

== ENCOUNTER → 2019-06-27 | Outpatient (CLI) | payer MEDICARE ==
[~2019-06-27] MED LIST changes: +AFIN10TA PO; +EXEM25TA PO
[2019-06-27 17:34] LABS: BASO % 0.4 % (0.0-1.0); EOS # 0.2 10^3/uL (0.0-0.5); EOS % 2.1 % (0.0-3.0); HEMATOCRIT 42.3 % (36.0-47.0); HEMOGLOBIN 13.5 g/dl (12.0-15.5); LYMPH # 1.7 10^3/uL (1.5-5.0); MEAN CORPUSCULAR HEMOGLOBIN 33.3 pg (27.0-33.0); MEAN CORPUSCULAR HGB CONC 31.9 g/dl (32.0-36.5); MEAN CORPUSCULAR VOLUME 104.2 fl (80.0-96.0); MONO # 0.7 10^3/uL (0.0-0.8); MONO % 8.8 % (0.0-5.0); NEUTROPHILS # 5.4 10^3/uL (1.5-8.5); NEUTROPHILS % 67.4 % (36.0-66.0); PLATELET COUNT, AUTOMATED 305 10^3/uL (150-450); RED BLOOD COUNT 4.06 10^6/uL (4.00-5.40)
[2019-06-27 18:07] LABS: ALBUMIN 3.6 GM/DL (3.2-5.2); ALT/SGPT 29 U/L (12-78); BILIRUBIN,TOTAL 0.5 MG/DL (0.2-1.0); BLOOD UREA NITROGEN 16 MG/DL (7-18); CALCIUM LEVEL 9.4 MG/DL (8.8-10.2); CARBON DIOXIDE LEVEL 30 MEQ/L (21-32); CHLORIDE LEVEL 105 MEQ/L (98-107); CREATININE FOR GFR 0.68 MG/DL (0.55-1.30); GLOMERULAR FILTRATION RATE > 60.0 (>39); GLUCOSE, FASTING 88 MG/DL (70-100); POTASSIUM SERUM 3.9 MEQ/L (3.5-5.1); SODIUM LEVEL 140 MEQ/L (136-145); TOTAL PROTEIN 7.2 GM/DL (6.4-8.2)
--- NOTE | 2019-06-28 01:43 | REP ---
REASON: Followup; patient has a history of metastatic breast carcinoma. COMPARISON: Multiple, the latest 05/23/2019, a portable exam. The right costophrenic angle and cardiophrenic angle blunting seen previously has increased. There are no other significant changes compared to the prior exam. IMPRESSION: Increased right pleural effusion. Electronically Signed by Eldon Mckeon DO 06/28/2019 07:59 A
== END ==
LOC: M LAB 16:18
PROVIDERS: ATTEND Physician Assistant
DX: C50.919 Malignant neoplasm of unspecified site of unspecified female breast (principal)

== ENCOUNTER → 2019-06-30 | Outpatient (CLI) | payer MEDICARE ==
[~2019-06-30] MED LIST changes: +AFIN5TAB PO; +NORC1TAB7 PO; +ZOFR4TAB16 PO
--- NOTE | 2019-06-30 15:07 | REP ---
REASON FOR EXAM: History of malignant pleural effusion. COMPARISON: All priors were reviewed, the latest of which is dated 05/23/2019. There is no significant change in the appearance of the mediastinum or pulmonary adriel. There is a round enlarged 1 cm sized left axillary lymph node. There is a moderate right pleural effusion, which as increased in size from the prior exam. No pericardial effusion has developed. There is no significant change in the appearance of the imaged upper abdomen. There is a 7 mm sized nonobstructing left nephrolith. Mild low density is seen throughout the hepatic parenchyma. Bone window technique throughout the exam shows no significant change from the prior exam. Evaluation of the lung schafer show them to be unchanged from 05/23/2019 without evidence of a new abnormal nodule, mass, or opacity. There are multiple intrafissural nodules on the right status quo. IMPRESSION: 1. Moderate right pleural effusion has increased in size compared to 05/23/2019. 2. Enlarged left axillary lymph node. 3. Partially imaged but nonobstructing left nephrolith. 4. Other findings as described above. Electronically Signed by Eldon Mckeon DO 06/30/2019 03:32 P
== END ==
LOC: M RAD 12:29
PROVIDERS: ATTEND Thoracic Surgery (Cardiothoracic Vascular Surgery)
DX: R59.0 Localized enlarged lymph nodes (principal); J91.0 Malignant pleural effusion; N20.0 Calculus of kidney; K76.89 Other specified diseases of liver; C50.919 Malignant neoplasm of unspecified site of unspecified female breast

== ENCOUNTER 2019-07-01 07:59 | Day surgery (SDC) | payer MEDICARE ==
[~2019-07-01] VITALS: Ht 154.9 cm; Wt 80.7 kg
[~2019-07-01 07:59] MED LIST changes: -AFIN5TAB PO; +MUPIROCIN 2% OINT 22 GM TUBE TOP ONE; -NORC1TAB7 PO; -ZOFR4TAB16 PO; +ceFAZolin SOD 2 GM in IV 1 EA IV ONE
[2019-07-01] MEDS ORDERED: NS 1,000 ML IV ONE (09:30)
[2019-07-01] MEDS ORDERED: BUPIVACAINE LIPOSOME/PF 1.3% 20ML VIAL (13.3MG/ML)(EXPAREL)(C9290 PER1MG) As Ordered ONE (09:47)
[2019-07-01] MEDS ORDERED: MIDAZOLAM INJ 2MG/2ML VIAL (J2250 PER 1MG) As Ordered ONE ×2 (10:15→10:20)
[2019-07-01] MEDS ORDERED: BUPIVACAINE HCL 0.25% 30ML VIAL As Ordered ONE ×2 (10:19→10:21)
[2019-07-01] MEDS ORDERED: BUPIVACAINE 0.75% 10 ML VIAL As Ordered ONE (10:20)
--- NOTE | 2019-07-01 11:19 | RO ---
DATE OF PROCEDURE: 07/01/2019 PREPROCEDURE DIAGNOSIS: Malignant right pleural effusion, breast cancer. POSTPROCEDURE DIAGNOSIS: Malignant right pleural effusion, breast cancer. PROCEDURE: Insertion of right PleurX catheter with moderate sedation, 4 mg of Versed. SURGEON: Art Holland MD BIOENGINEER: ANESTHESIA: FINDINGS: 750 mL of clear fredrick fluid was removed. This was sent for requisite studies of cytologies, bacteriologies, chemistries, and hematologies. DESCRIPTION OF PROCEDURE: Under moderate sedation with 4 mg of Versed, the patient was prepped and draped in the usual sterile fashion. Anatomic landmarks were marked prior to prepping and draping. An exploring needle was placed into the chest with immediate production of fluid. A wire was placed and an incision was made around the wire. The exit site was then measured with the tunneler and incision was made. A tunnel was created from the entry site to the exit. PleurX catheter was pulled through the tunnel and appropriately positioned. The tract was then dilated and a Peel-Away introducer placed. The catheter was placed from the chest without difficulty. The catheter underwent final positioning and the catheter was secure to the abdominal wall with #2-0 silk suture. The entry incision was closed with running #4-0 Monocryl subcuticular suture. The patient tolerated the procedure well, and chest x-ray showed complete drainage of the pleural fluid.
[2019-07-01 11:21] LABS: SOURCE, BODY FLUID pH PLEURAL
[2019-07-01 11:27] LABS: APPEARANCE, BODY FLUID HAZY (CLEAR); PLEURAL FL COLOR YELLOW (COLORLESS); SOURCE, BODY FLUID PLEURAL
--- NOTE | 2019-07-01 11:31 | REP ---
CHEST, PORTABLE: AP portable view of the chest is performed and compared to a prior study of 06/27/2019. Right chest tube is placed. There is resolution of the right pleural effusion. Mild atelectatic changes are seen in the right lung base. There is a tiny right pneumothorax. Left lung is clear. The heart and mediastinum are unchanged. Electronically Signed by Hussain Brothers MD 07/01/2019 11:40 A
[2019-07-01 11:35] VITALS: BP 136/81
[2019-07-01 11:55] LABS: SOURCE, BODY FLUID ALBUMIN PLEURAL; SOURCE, BODY FLUID TOT PROTEIN PLEURAL; TOTAL PROTEIN, BODY FLUID 4.6 G/DL (NOT ESTABLISHED)
[2019-07-01 12:23] LABS: AMYLASE, BODY FLUID 34 U/L (NOT ESTABLISHED); CHOLESTEROL, BODY FLUID 104 MG/DL (NOT ESTABLISHED); LDH, BODY FLUID 164 U/L (NOT ESTABLISHED); SOURCE, BODY FLUID AMYLASE PLEURAL; SOURCE, BODY FLUID CHOL PLEURAL; SOURCE, BODY FLUID GLUCOSE PLEURAL; SOURCE, BODY FLUID LDH PLEURAL; SOURCE, BODY FLUID TRIG PLEURAL; TRIGLYCERIDE, BODY FLUID 33 MG/DL (NOT ESTABLISHED)
[2019-07-02] MEDS ORDERED: AFIN5TAB PO (09:25)
[2019-07-02] MEDS ORDERED: ALEN70TA74 PO (09:25)
[2019-07-02] MEDS ORDERED: ZOFR4TAB16 PO (10:26)
[2019-07-02] MEDS ORDERED: NORC1TAB7 PO (10:26)
[2019-07-18] MEDS ORDERED: DEXA0.5E2 PO (15:37)
== END 2019-07-01 11:41 | disposition home or self-care (01) ==
LOC: M OPP 07:59
PROVIDERS: ATTEND Thoracic Surgery (Cardiothoracic Vascular Surgery)
DX: R06.02 Shortness of breath (principal); B34.9 Viral infection, unspecified; C79.2 Secondary malignant neoplasm of skin; C50.411 Malignant neoplasm of upper-outer quadrant of right female breast; J91.0 Malignant pleural effusion; E78.5 Hyperlipidemia, unspecified; E78.00 Pure hypercholesterolemia, unspecified; R93.89 Abnormal findings on diagnostic imaging of other specified body structures; Z79.899 Other long term (current) drug therapy
CPT/HCPCS: 32550; 36415; 71045; 82042; 82150; 82465; 82945; 83615; 83986; 84157; 84478; 87070; 87075; 87102; 87116; 87205; 87206; 88108; 88305; 88313; 88341; 88342; 89051; 96374; C9290; J0690; J2250; U0002

== ENCOUNTER 2019-07-02 08:10 | Emergency (ER) | payer MEDICARE ==
[~2019-07-02] VITALS: Ht 154.9 cm; Wt 79.6 kg
[~2019-07-02 08:10] MED LIST changes: -MUPIROCIN 2% OINT 22 GM TUBE TOP ONE; -ceFAZolin SOD 2 GM in IV 1 EA IV ONE
--- NOTE | 2019-07-02 08:42 | REP ---
Clinical: Shortness of breath . Comparison: 07/01/2019, 06/27/2019 . Findings: Right-sided chest tube extends to the medial upper lung zone. Small residual right basilar pleural reaction and trace atelectasis suggested. Small right apical pneumothorax is suspected. The mediastinum and cardiac silhouette are stable and within normal limits for portable technique. The lung schafer are clear without acute consolidation, effusion, or pneumothorax. Skeletal structures are intact. Impression: 1. Chest tube extends to the medial right upper lung zone. 2. Small right apical pneumothorax and minimal residual right basilar opacity. Electronically Signed by Amaury Tinajero MD 07/02/2019 08:35 A
[2019-07-02 08:48] VITALS: BP 119/64
--- NOTE | 2019-07-02 09:01 | REP ---
Clinical: Right-sided chest pain. Technique: Axial noncontrast images from the thoracic inlet to the upper abdomen with coronal and sagittal re-formations. Comparison: 06/30/2019. Findings: Current examination demonstrates small right pneumothorax along with small decreased right pleural effusion. Right-sided chest tube is identified extending into the medial posterior right lung apex. Very small reticulonodular opacities primarily involving the right upper lung zone and inseparable from the right major fissure as well as trace left basilar atelectasis and minimal scattered basilar scarring again noted. Tracheobronchial tree is patent. Mediastinal lymph nodes up to approximately 10 mm unchanged. Stable relatively normal appearance to the thoracic aorta, pulmonary vasculature, and heart/pericardium. Musculoskeletal structures are intact and without new acute process. Impression: 1. New small right pneumothorax. 2. Right-sided chest tube and small right pleural effusion which is decreased from 06/30/2019. 3. Very subtle scattered parenchymal findings essentially unchanged. Electronically Signed by Amaury Tinajero MD 07/02/2019 08:52 A
[2019-07-02 09:09] LABS: BASO % 0.4 % (0.0-1.0); EOS # 0.2 10^3/uL (0.0-0.5); EOS % 1.5 % (0.0-3.0); HEMOGLOBIN 13.3 g/dl (12.0-15.5); LYMPH # 0.9 10^3/uL (1.5-5.0); LYMPH % 7.9 % (24.0-44.0); MEAN CORPUSCULAR HEMOGLOBIN 32.5 pg (27.0-33.0); MEAN CORPUSCULAR HGB CONC 31.7 g/dl (32.0-36.5); MEAN CORPUSCULAR VOLUME 102.7 fl (80.0-96.0); MONO # 0.9 10^3/uL (0.0-0.8); MONO % 8.4 % (0.0-5.0); NEUTROPHILS # 8.8 10^3/uL (1.5-8.5); NEUTROPHILS % 81.4 % (36.0-66.0); PLATELET COUNT, AUTOMATED 284 10^3/uL (150-450); RED BLOOD COUNT 4.09 10^6/uL (4.00-5.40); WHITE BLOOD COUNT 10.8 10^3/uL (4.0-10.0)
[2019-07-02] MEDS ORDERED: AFIN5TAB PO (09:25)
[2019-07-02] MEDS ORDERED: ALEN70TA74 PO (09:25)
[2019-07-02] MEDS ORDERED: GABAPENTIN 300 MG CAP PO ONE (09:30)
[2019-07-02] MEDS ORDERED: KETOROLAC 30 MG/ML 1ML VIAL IV ONE (09:30)
[2019-07-02 09:35] LABS: ALBUMIN 3.3 GM/DL (3.2-5.2); ALT/SGPT 24 U/L (12-78); BILIRUBIN,DIRECT 0.2 MG/DL (0.0-0.2); BILIRUBIN,TOTAL 0.6 MG/DL (0.2-1.0); CK-MB VALUE MASS < 1.0 NG/ML (<3.6); CPK CREATINE PHOSPHOKINASE 33 U/L (26-192); MB/CK RELATIVE INDEX 3.03 (< OR =4); NT-PRO BNP 73 PG/ML (<450); TOTAL PROTEIN 6.6 GM/DL (6.4-8.2); TROPONIN I < 0.02 NG/ML (< 0.10)
[2019-07-02 10:17] VITALS: O2SAT 93
[2019-07-02] MEDS ORDERED: ZOFR4TAB16 PO (10:26)
[2019-07-02] MEDS ORDERED: NORC1TAB7 PO (10:26)
--- NOTE | 2019-07-02 19:29 | ECGEPIP ---
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
[2019-07-18] MEDS ORDERED: DEXA0.5E2 PO (15:37)
== END 2019-07-02 11:17 | disposition home or self-care (01) ==
LOC: M ED 08:10
DX: R07.89 Other chest pain (principal); R42 Dizziness and giddiness; J95.811 Postprocedural pneumothorax; J90 Pleural effusion, not elsewhere classified; F41.9 Anxiety disorder, unspecified; F32.9 Major depressive disorder, single episode, unspecified; J45.909 Unspecified asthma, uncomplicated; K21.9 Gastro-esophageal reflux disease without esophagitis; M81.0 Age-related osteoporosis without current pathological fracture; M85.80 Other specified disorders of bone density and structure, unspecified site; Z88.8 Allergy status to other drugs, medicaments and biological substances; Z90.13 Acquired absence of bilateral breasts and nipples; C50.011 Malignant neoplasm of nipple and areola, right female breast; C50.012 Malignant neoplasm of nipple and areola, left female breast; Z87.891 Personal history of nicotine dependence; Z79.899 Other long term (current) drug therapy
CPT/HCPCS: 71045; 71250; 80047; 80076; 82550; 82553; 83605; 83880; 84484; 85025; 87040; 93005; 93041; 94760; 96374; 99285; J1885

== ENCOUNTER → 2019-07-12 | Outpatient (CLI) | payer MEDICARE ==
[~2019-07-12] MED LIST changes: +AFIN5TAB PO; -ALEN70TA74 PO; +ALEN70TA82 PO; -ALL10TAB29 PO; -AMIT25TA; +AMIT25TA17; +ASPI81CH33 PO; +CETI-24 PO; +CIPR-250 PO; +D31000TA2 PO; +DEXA0.5E2 PO; +DEXA1TA PO; +Diflucan PO; +FAMO20TA PO; +FLUC100T PO; +GEMC1INJ IV; +HYDR-3713 PO; +ISOVUE-370 76% 100ML VIAL As Ordered ONE; +LIDO2.5C15 TOP; +LISI-898 PO; +LISI10TA22 PO; +METO1TAB87 PO; +NORC1TAB7 PO; +PACL150I IV; +PEPC1TAB5 PO; +PROAAER10 INH; +PROC10TA4 PO; +PROC5TAB57 PO; +QUET25TA3 PO; +QUET50TA3 PO; -QUET5TAB PO; -VITAD1000T PO; +ZOFR4TAB16 PO
--- NOTE | 2019-07-12 14:37 | REP ---
REASON: History of breast carcinoma and progressive dyspnea. COMPARISON: All priors reviewed. The latest 07/02/2019. CONTRAST: 100 mL Isovue 370. There is excellent visualization of the pulmonary arterial vasculature. No focal filling defects are present that would be considered consistent with a pulmonary emboli. There is no thoracic aortic abnormality. The mediastinal and pulmonary adriel are essentially unchanged. No mass or adenopathy has developed. There is a right thoracotomy tube status quo. The right pleural effusion seen previously has increased slightly. The imaged upper abdomen is again seen to be within normal limits and essentially unchanged. The imaged osseous structures are stable and intact. Evaluation of the lung schafer shows scattered asymmetric densities in the right lung lower lobe and a new fluid collection in the right major fissure. The lung schafer are otherwise unchanged. IMPRESSION: 1. There is no evidence of a pulmonary embolus. 2. There is a slight increase in the right-sided pleural effusion. The thoracotomy tube remains in place, the tip of which is in the right lung base region. 3. Asymmetric right lung opacities as described above likely subsegmental atelectatic changes. This should be correlated clinically with appropriate followup. 4. Other findings as described above. Electronically Signed by Eldon Mckeon DO 07/12/2019 03:41 P
== END ==
LOC: M RAD 12:57
PROVIDERS: ATTEND Internal Medicine Medical Oncology
DX: C50.919 Malignant neoplasm of unspecified site of unspecified female breast (principal); J90 Pleural effusion, not elsewhere classified; R91.8 Other nonspecific abnormal finding of lung field; R06.02 Shortness of breath
CPT/HCPCS: 71275; Q9967

== ENCOUNTER → 2019-08-12 | Outpatient (CLI) | payer MEDICARE ==
[~2019-08-12] MED LIST changes: +ALEN70TA74 PO; -ALEN70TA82 PO; +ALL10TAB29 PO; +AMIT25TA; -AMIT25TA17; -ASPI81CH33 PO; -CETI-24 PO; -CIPR-250 PO; -D31000TA2 PO; -DEXA1TA PO; -Diflucan PO; -FAMO20TA PO; -FLUC100T PO; +GASTROGRAFIN SOLUTION 30ML (Q9963) As Ordered ONE; -GEMC1INJ IV; -HYDR-3713 PO; -LIDO2.5C15 TOP; -LISI-898 PO; -LISI10TA22 PO; -METO1TAB87 PO; -PACL150I IV; -PEPC1TAB5 PO; -PROAAER10 INH; -PROC10TA4 PO; -PROC5TAB57 PO; -QUET25TA3 PO; -QUET50TA3 PO; +QUET5TAB PO; +VITAD1000T PO
--- NOTE | 2019-08-12 10:46 | REP ---
REASON: Metastatic breast carcinoma. COMPARISON: Multiple, latest contrast-contrast enhanced examination of 09/29/[address] examination of 12/14/2018, a noncontrast examination. Other CTs were also reviewed. CONTRAST TODAY: 100 mL Isovue-370. The liver, gallbladder, spleen, pancreas, adrenal glands, and kidneys are unchanged. The abdominal aorta and para-aortic regions are unchanged. The intra-abdominal and intrapelvic bowel loops and their mesenteries are essentially unchanged and again seen to be within normal limits. There is no intra-abdominal or intrapelvic mass or adenopathy. No free fluid or free air is seen in the abdomen or pelvis. Bone window technique throughout the examination shows the osseous structures to be stable and intact. Hip, spine, and sacroiliac degenerative changes are noted, status quo. IMPRESSION: There is no significant change from the prior exam. There is no acute disease. Electronically Signed by Eldon Mckeon DO 08/12/2019 02:45 P
--- NOTE | 2019-08-12 11:01 | REP ---
REASON: Followup metastatic breast carcinoma. COMPARISON: Multiple, the latest 07/12/2019. CONTRAST: 100 mL Isovue-370. The mediastinum and pulmonary adriel are unchanged. There is no mass or adenopathy. There is no pericardial effusion or left pleural effusion. There is a small right pleural effusion decompressed by an existing thoracotomy tube, the position of which is unchanged from the prior exam. There is no significant change in appearance of the osseous structures. Evaluation of the lung schafer shows scattered asymmetric predominant lung base density, status quo, along with areas of smooth-appearing pleural thickening in the region of the right lower and particularly right middle lobe. These asymmetric densities have increased significantly compared to 12/14/2018, and the areas of pleural thickening have developed since that exam as well. The areas of pleural thickening have increased and some have developed since 06/30/2019. No spiculated lung masses are identified. IMPRESSION: Essentially no change from the latest prior chest CT, however, over the months there have been changes, as described above. Whether or not these changes represent a continuum of chronic lung disease or new metastatic deposits cannot be stated with certainty by this exam. No definite spiculated nodules or lesions have developed, however. Would suggest revisit PET/CT so as it can be compared to the PET/CT of 05/24/2019 which showed left axillary, right hilar, and right subcarinal hypermetabolic activity. There is no CT evidence of adenopathy in those regions today, however, there is a round left axillary lymph node which is not pathologically enlarged. The morphologic change could indicate reactive or infiltrative disease. Electronically Signed by Eldon Mckeno DO 08/12/2019 02:45 P
== END ==
LOC: M RAD 07:52
PROVIDERS: ATTEND Internal Medicine Medical Oncology
DX: C79.81 Secondary malignant neoplasm of breast (principal)
CPT/HCPCS: 71260; 74177; Q9963; Q9967

== ENCOUNTER 2019-09-26 13:00 | Emergency (ER) | payer MEDICARE ==
[~2019-09-26 13:00] MED LIST changes: -ALL10TAB29 PO; +CETI-24 PO; +D31000TA2 PO; -GASTROGRAFIN SOLUTION 30ML (Q9963) As Ordered ONE; -ISOVUE-370 76% 100ML VIAL As Ordered ONE; -VITAD1000T PO
[2019-10-21] MEDS ORDERED: FLUC100T PO (12:14)
[2019-10-23 17:15] LABS: ALBUMIN 2.9 GM/DL (3.2-5.2); ALT/SGPT 38 U/L (12-78); BILIRUBIN,DIRECT < 0.1 MG/DL (0.0-0.2); BILIRUBIN,TOTAL 0.3 MG/DL (0.2-1.0); BLOOD UREA NITROGEN 18 MG/DL (7-18); CALCIUM LEVEL 9.2 MG/DL (8.8-10.2); CARBON DIOXIDE LEVEL 30 MEQ/L (21-32); CHLORIDE LEVEL 106 MEQ/L (98-107); CK-MB VALUE MASS 1.8 NG/ML (<3.6); CPK CREATINE PHOSPHOKINASE 129 U/L (26-192); CREATININE FOR GFR 0.72 MG/DL (0.55-1.30); GLOMERULAR FILTRATION RATE > 60.0 (>39); GLUCOSE, FASTING 85 MG/DL (70-100); NT-PRO BNP 189 PG/ML (<450); POTASSIUM SERUM 3.7 MEQ/L (3.5-5.1); SODIUM LEVEL 144 MEQ/L (136-145); TOTAL PROTEIN 6.6 GM/DL (6.4-8.2); TROPONIN I < 0.02 NG/ML (< 0.10)
[2019-10-26] MEDS ORDERED: PROC10TA4 PO (07:50)
[2019-10-26] MEDS ORDERED: ZOFR4TAB16 PO (07:50)
[2019-10-26] MEDS ORDERED: PROAAER10 INH (07:50)
--- NOTE | 2019-11-17 11:37 | ECGEPIP ---
SINUS RHYTHM NORMAL ECG NO OLD AVAILABLE SEE SCANNED DOWNTIME REPORT MTDD
[2019-11-30 21:43] LABS: BASO % 0.2 % (0.0-1.0); EOS % 1.4 % (0.0-3.0); HEMATOCRIT 37.7 % (36.0-47.0); HEMOGLOBIN 11.8 g/dl (12.0-15.5); LYMPH % 9.4 % (24.0-44.0); MEAN CORPUSCULAR HEMOGLOBIN 29.9 pg (27.0-33.0); MEAN CORPUSCULAR HGB CONC 31.3 g/dl (32.0-36.5); MEAN CORPUSCULAR VOLUME 95.7 fl (80.0-96.0); MONO % 12.4 % (0.0-5.0); NEUTROPHILS % 76.2 % (36.0-66.0); PLATELET COUNT, AUTOMATED 270 10^3/uL (150-450); RED BLOOD COUNT 3.94 10^6/uL (4.00-5.40); WHITE BLOOD COUNT 8.4 10^3/uL (4.0-10.0)
[2019-11-30 21:44] LABS: EOS # 0.1 10^3/uL (0.0-0.5); LYMPH # 0.8 10^3/uL (1.5-5.0); NEUTROPHILS # 6.4 10^3/uL (1.5-8.5)
[2019-12-01] MEDS ORDERED: PEPC1TAB5 PO (12:18)
[2019-12-29] MEDS ORDERED: QUET1TAB7 PO (11:12)
== END 2019-09-26 19:40 | disposition home or self-care (01) ==
LOC: M ED 13:00
DX: J18.9 Pneumonia, unspecified organism (principal); R06.00 Dyspnea, unspecified; C79.81 Secondary malignant neoplasm of breast; J91.0 Malignant pleural effusion; Z87.891 Personal history of nicotine dependence; Z79.899 Other long term (current) drug therapy; Z88.8 Allergy status to other drugs, medicaments and biological substances

== ENCOUNTER → 2019-10-06 | Outpatient (CLI) | payer MEDICARE ==
[~2019-10-06] MED LIST changes: +FLUC100T PO; +PEPC1TAB5 PO; +PROAAER10 INH; +PROC10TA4 PO; +QUET1TAB7 PO
--- NOTE | 2019-11-25 11:38 | REP ---
CHEST X-RAY: 2-VIEWS HISTORY: Breast cancer. PleurX catheter. COMPARISON: None. FINDINGS: A pleural drainage (PleurX) catheter is seen in the right base. There is slight blunting of the right lateral pleural angle. No large effusion is seen. There are curvilinear opacities in the right perihilar and right base region consistent with atelectasis and/or fibrosis. Interstitial markings are slightly prominent in the bases, right greater than left. The heart is not enlarged. The thoracic aorta is somewhat tortuous. There are degenerative changes in the thoracic spine. No acute bony abnormality is seen. IMPRESSION: PleurX catheter right base. No significant effusion. Pleuroparenchymal fibrotic and/or atelectatic changes right perihilar and right base region, mild in degree. Otherwise, no acute abnormality. MTDD
== END ==
LOC: M RAD 14:40
PROVIDERS: ATTEND Physician Assistant
DX: C50.919 Malignant neoplasm of unspecified site of unspecified female breast (principal)

== ENCOUNTER → 2019-10-12 | Outpatient (CLI) | payer MEDICARE ==
[~2019-10-12] MED LIST changes: +GASTROGRAFIN SOLUTION 30ML (Q9963) As Ordered ONE; +ISOVUE-370 76% 100ML VIAL As Ordered ONE
--- NOTE | 2019-11-25 11:36 | REP ---
CT OF THE ABDOMEN AND PELVIS WITH IV AND ORAL CONTRAST: HISTORY: Metastatic breast carcinoma. COMPARISON: CT study from 08/12/19. CONTRAST DOSE: 100 ml of intravenous Isovue 370 is administered. FINDINGS: Preliminary digital blunger machine operator radiograph demonstrates a PleurX catheter on the right. This is seen on axial CT images as well. There is a stable 1 cm left lobe hepatic cyst, unchanged. No new liver lesion is seen. There is a small accessory splenule inferior to the spleen. The spleen is otherwise unremarkable. No adrenal lesion is seen. No abnormality is noted in the pancreas or in the gallbladder. The kidneys enhance symmetrically. There is a 4 mm intrarenal calculus in the lower pole of the left kidney and a 3 mm calculus is also present in the lower pole of the left kidney. No hydronephrosis is seen. No retroperitoneal mass or adenopathy is observed. The small and large intestinal bowel loops are unremarkable. There is mild diveritculosis in the sigmoid colon. The uterus is surgically absent. The urinary bladder is unremarkable. Bone window settings show no bony destructive or blastic lesion. IMPRESSION: Stable abdominal and pelvis CT findings. Intrarenal nephrolithiasis left kidney without hydronephrosis. No evidence of mass or adenopathy. MTDD
--- NOTE | 2019-11-25 11:38 | REP ---
CT CHEST WITH IV CONTRAST HISTORY: Breast carcinoma. Rule out metastatic disease. CT CONTRAST DOSE: 100 mL of intravenous Isovue-370. COMPARISON: Chest CT study from 08/12/2019. CT FINDINGS: Digital preliminary satellite dish installer radiograph demonstrates a PleurX catheter in the right lung base. There is some pleural thickening and minimal pleural fluid associated with the posterior pleural angle and along the course of the catheter. There is a band of linear discoid atelectasis in the left lower lobe posteriorly. This band of linear density in the left lower lobe is new when compared with the 08/12/2019 study. It has somewhat nodular margins, but is otherwise elongate and linear. There is some nodular fissural thickening visible in the right chest along the major fissure and minor fissure. This is a little more extensive than on the 08/12/2019 study. There is a new interstitial infiltrate along the periphery of the right upper lobe, which could be postradiation change versus inflammatory infiltrate. This extends into the right middle lobe and right upper lobe. No other new infiltrate is appreciated. No hilar mass is seen. There are stable normal size precarinal lymph nodes. No pericardial effusion is seen. There is a 1 cm stable cyst in the left lobe of the liver. Tiny accessory splenule is seen in the left upper quadrant. No abnormal adrenal lesion. There is some fibrosis and subdermal induration in the mastectomy site on the right unchanged. There is no chest wall mass lesion is observed. No axillary or supraclavicular adenopathy is seen. No bony destructive lesion is seen. IMPRESSION: Slightly increased fissural nodularity along the major fissure and minor fissure on the right. Increased interstitial markings right upper lobe postobstructive versus inflammatory changes. Bilateral mastectomy. Right-sided PleurX catheter in place. MTDD
== END ==
LOC: M RAD 13:52
PROVIDERS: ATTEND Specialist
DX: Z85.3 Personal history of malignant neoplasm of breast (principal); N20.0 Calculus of kidney
CPT/HCPCS: 71260; 74177; Q9963; Q9967

== ENCOUNTER → 2019-11-10 | Outpatient (CLI) | payer MEDICARE ==
[~2019-11-10] MED LIST changes: -GASTROGRAFIN SOLUTION 30ML (Q9963) As Ordered ONE; -ISOVUE-370 76% 100ML VIAL As Ordered ONE; +LIDOCAINE 1% MDV 20ML VIAL As Ordered ONE
[2019-11-10 10:25] VITALS: BP 185/88
[2019-11-10 11:17] LABS: INR 1.02; PROTHROMBIN TIME 13.6 SECONDS (11.8-14.0)
[2019-11-10 11:18] LABS: PARTIAL THROMBOPLASTIN TIME 37.3 SECONDS (25.0-38.4)
--- NOTE | 2019-11-29 16:38 | REP ---
PICC LINE INSERTION WITH WOO The procedure was performed under the direct supervision of Dr. Brothers. The risks and benefits of the procedure were explained to the patient and informed consent was obtained. The right basilic vein was localized using ultrasound guidance. The skin was prepped and draped in a sterile fashion. A 1% Lidocaine was used as a local anesthetic. Using ultrasound guidance, the basilic vein was cannulated and a 0.018 guidewire was inserted and advanced to the SVC using fluoroscopic guidance. The needle was removed and a 5.5 Azeri dilator and Peel-Away sheath was inserted over the guidewire. A 5.5 Azeri dual-lumen catheter was cut to a length of 43 cm. The dilator was removed and the catheter was inserted over the guidewire with the tip ending in the SVC. The Peel-Away sheath was removed, and the catheter was flushed with heparinized saline as per hospital protocol. The catheter was affixed to the skin and a sterile dressing was applied. The patient tolerated the procedure well and there were no immediate complications. 0.3 minutes of fluoroscopy time was utilized for this procedure. TABATHA
== END ==
LOC: M IRPRO 09:00
PROVIDERS: ATTEND Specialist
DX: C50.919 Malignant neoplasm of unspecified site of unspecified female breast (principal)
CPT/HCPCS: 36571; 76937; 85610; 85730; C1751; J1642; J1644

== ENCOUNTER → 2019-12-09 | Outpatient (CLI) | payer MEDICARE ==
[~2019-12-09] MED LIST changes: -LIDOCAINE 1% MDV 20ML VIAL As Ordered ONE
--- NOTE | 2019-12-14 15:21 | REPPI ---
TWO-VIEW CHEST HISTORY: Pleural effusion. TECHNIQUE: Two views of the chest were performed and compared to the prior study of 10/06/2019. FINDINGS: A right pleural drainage catheter is again noted. Position appears unchanged. There does not appear to be a significant pleural effusion present on either side. Previously noted mild ill-defined parenchymal opacity in the right perihilar region has resolved. Mild chronic opacity is again seen along the right inferior chest wall near the catheter insertion site. Left lung is clear. Heart is normal in size. There is calcification and tortuosity of the thoracic aorta. Mediastinal silhouette is unchanged. There is a left central venous catheter, which appears to represent a peripherally inserted central catheter (PICC). The tip is in the superior vena cava. IMPRESSION: Right pleural drainage catheter unchanged in position. Previously noted right perihilar parenchymal opacity has resolved. No significant pleural effusion currently. MTDD
== END ==
LOC: M PLAIMG 13:23
PROVIDERS: ATTEND Thoracic Surgery (Cardiothoracic Vascular Surgery)
DX: C50.919 Malignant neoplasm of unspecified site of unspecified female breast (principal); I70.0 Atherosclerosis of aorta; Z95.828 Presence of other vascular implants and grafts

== ENCOUNTER → 2020-01-05 | Outpatient (CLI) | payer MEDICARE ==
--- NOTE | 2020-01-05 13:33 | REPPI ---
INDICATION: J91.0 MALIGNANT PLEURAL EFFUSION. COMPARISON: Chest x-ray 12/09/2019, 10/06/2019, CT 10/12/2019. TECHNIQUE: Two views FINDINGS: There is a right-sided pleural drain extending over the lower lung zone and then curving medially and ending in the posterior deep sulcus there is also a left-sided PICC line which terminates in the SVC unchanged. Some minor right pleural thickening or fluid laterally and minimal blunting of the right CP angle suggesting small effusion. I could not exclude a small left effusion with some minimal blunting suspected. Heart size is unchanged. There is left ventricular configuration but no enlargement of the left atrium. The aorta is mildly tortuous and ectatic, unchanged. The pulmonary arteries are prominent centrally. Some perihilar and lower lung zone interstitial changes are seen, right greater than left. No dense consolidation with air bronchograms. No gross mass. Bony thorax shows no acute compression deformity or destructive lesion. There are minor degenerative changes of the shoulders and AC joints. Bones do appear demineralized. No free air under the diaphragm. IMPRESSION: 1. Right-sided posterior lower lung zone pleural drain unchanged with minimal blunting of the CP angle suggesting a trace effusion or scar. There is also a left-sided PICC line, tip in SVC. All of this stable. 2. Some hyperinflation and chronic changes perihilar and lower lung zone regions right greater than left. This is grossly stable. Some minor pleural thickening laterally in the mid and lower right lung zone. 3. Left ventricular configuration of the heart without pulmonary edema or interval change. Heart mediastinal and aortic contours unchanged. <Electronically signed by Jamel Concepcion > 01/05/20 [id number]
== END ==
LOC: M PLAIMG 13:06
PROVIDERS: ATTEND Thoracic Surgery (Cardiothoracic Vascular Surgery)
DX: C50.919 Malignant neoplasm of unspecified site of unspecified female breast (principal); J91.0 Malignant pleural effusion; Z95.828 Presence of other vascular implants and grafts

== ENCOUNTER → 2020-01-11 | Outpatient (CLI) | payer MEDICARE ==
[~2020-01-11] MED LIST changes: +HYDR-3713 PO; +PACL150I IV
== END ==
LOC: M LABSMTC 10:21
PROVIDERS: ATTEND Anesthesiology
DX: Z01.812 Encounter for preprocedural laboratory examination (principal); Z20.828 Contact with and (suspected) exposure to other viral communicable diseases

== ENCOUNTER → 2020-01-12 | Outpatient (CLI) | payer MEDICARE ==
--- NOTE | 2020-01-13 15:28 | ECGEPIP ---
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
== END ==
LOC: M EKG 10:37
PROVIDERS: ATTEND Thoracic Surgery (Cardiothoracic Vascular Surgery)
DX: Z01.818 Encounter for other preprocedural examination (principal); J91.0 Malignant pleural effusion

== ENCOUNTER 2020-01-16 07:00 | Day surgery (SDC) | payer MEDICARE ==
[~2020-01-16] VITALS: Ht 154.9 cm; Wt 81.4 kg
[~2020-01-16 07:00] MED LIST changes: -HYDR-3713 PO; +LIDOCAINE 1% MDV 20ML VIAL SQ PRN; -PACL150I IV
[2020-01-16] MEDS ORDERED: MIDAZOLAM INJ 2MG/2ML VIAL (J2250 PER 1MG) As Ordered ONE (07:21)
[2020-01-16] MEDS ORDERED: LIDOCAINE 2% 100MG/5ML SDV (FOR ANES.) As Ordered ONE (07:21)
[2020-01-16] MEDS ORDERED: ONDANSETRON 4MG/2ML VIAL As Ordered ONE (07:21)
[2020-01-16] MEDS ORDERED: propofoL 200 MG/20 ML VIAL As Ordered ONE ×2 (07:21→09:53)
[2020-01-16] MEDS ORDERED: fentaNYL 100 MCG/2 ML INJECTION (J3010) As Ordered ONE (07:21)
[2020-01-16] MEDS ORDERED: BUPIVACAINE LIPOSOME/PF 1.3% 20ML VIAL (13.3MG/ML)(EXPAREL)(C9290 PER1MG) As Ordered ONE (07:26)
[2020-01-16] MEDS ORDERED: LIDOCAINE 1% SDV 30ML VIAL As Ordered ONE (07:27)
[2020-01-16] MEDS ORDERED: HEPARIN SOD (PORCINE) 5000UNITS/ML 1ML VIAL/SYRINGE As Ordered ONE (07:27)
[2020-01-16] MEDS ORDERED: MUPIROCIN 2% OINT 22 GM TUBE TOP ONE (07:30)
[2020-01-16] MEDS ORDERED: ceFAZolin SOD 2 GM in IV 1 EA IV ONE (07:30)
[2020-01-16] MEDS ORDERED: LR 1,000 ML IV ONE (07:30)
[2020-01-16 07:32] LABS: HEMATOCRIT 37.3 % (36.0-47.0); HEMOGLOBIN 11.5 g/dl (12.0-15.5); MEAN CORPUSCULAR HEMOGLOBIN 32.1 pg (27.0-33.0); MEAN CORPUSCULAR HGB CONC 30.8 g/dl (32.0-36.5); MEAN CORPUSCULAR VOLUME 104.2 fl (80.0-96.0); PLATELET COUNT, AUTOMATED 339 10^3/uL (150-450); RED BLOOD COUNT 3.58 10^6/uL (4.00-5.40); WHITE BLOOD COUNT 5.2 10^3/uL (4.0-10.0)
[2020-01-16 07:45] LABS: PROTHROMBIN TIME 13.4 SECONDS (12.5-14.3)
[2020-01-16 07:46] LABS: PARTIAL THROMBOPLASTIN TIME 29.5 SECONDS (24.2-38.5)
[2020-01-16] MEDS ORDERED: PACL150I IV (07:55)
[2020-01-16 07:57] LABS: BLOOD UREA NITROGEN 26 MG/DL (7-18); CALCIUM LEVEL 8.9 MG/DL (8.8-10.2); CARBON DIOXIDE LEVEL 29 MEQ/L (21-32); CHLORIDE LEVEL 109 MEQ/L (98-107); CREATININE FOR GFR 0.74 MG/DL (0.55-1.30); GLOMERULAR FILTRATION RATE > 60.0 (>39); GLUCOSE, FASTING 101 MG/DL (70-100); POTASSIUM SERUM 4.2 MEQ/L (3.5-5.1); SODIUM LEVEL 142 MEQ/L (136-145)
[2020-01-16] MEDS ORDERED: HYDR-3713 PO (09:01)
[2020-01-16] MEDS ORDERED: PHENYLephrine HCL 500 MCG/5 ML (100MCG/ML) SYRINGE (J2370) As Ordered ONE (09:42)
--- NOTE | 2020-01-16 10:45 | REP ---
INDICATION: INFUSAPORT. COMPARISON: None. TECHNIQUE: C-arm views of chest performed. FINDINGS: Left MediPort catheter is noted with the tip in the superior vena cava. IMPRESSION: 17 seconds fluoroscopy time utilized. <Electronically signed by Hussain Brothers > 01/16/20 1048
--- NOTE | 2020-01-16 10:47 | REP ---
INDICATION: infusaport placement. COMPARISON: 01/05/2020. TECHNIQUE: SINGLE PORTABLE AP VIEW OF THE CHEST WAS PERFORMED. FINDINGS: There has been placement of a left MediPort subclavian central venous catheter. The tip is in the superior vena cava. There is no pneumothorax. No new infiltrate is seen in either lung. The previously noted right pleural drainage catheter has been removed. The heart mediastinum are unchanged. IMPRESSION: Left subclavian MediPort catheter with tip in superior vena cava. No pneumothorax. <Electronically signed by Hussain Brothers > 01/16/20 1044
[2020-01-16 11:45] VITALS: BP 124/84
--- NOTE | 2020-01-16 14:04 | RO ---
DATE OF OPERATION: 01/16/2020 PREPROCEDURE DIAGNOSIS: Need for vascular access for chemotherapy and retained PleurX catheter on the right. PROCEDURE: Insertion of left subclavian Infusaport with fluoroscopic control and removal of right PleurX catheter. FINDINGS: The Infusaport catheter was placed at the junction of the SVC and right atrium. Port was aspirated and flushed without difficulty. DESCRIPTION OF PROCEDURE: Under monitored anesthesia control, patient was prepped and draped in the usual sterile fashion. The subclavian vein was then found after infiltrating the subclavian fossa on the left with 1% lidocaine. It took three passes to find the vein. The vein was then wired without difficulty, and the wire confirmed by fluoroscopy. Port site was then chosen and infiltrated with Exparel. Incision was made and carried down through the subcutaneous tissue. A pocket was then created by use of sharp and blunt dissection. The catheter tract was then dilated, and a peel-away introducer introduced. Catheter was then placed into the peel-away introducer and advanced into the right atrium. Peel-away introducer was removed, and a tunnel was then created between the catheter site and the port site. The catheter was pulled through the tunnel and then under fluoroscopic control was positioned at the junction of the SVC and right atrium. Catheter was then cut to appropriate size and connected to the Infusaport. Infusaport was secured to the chest wall with two 2-0 silk sutures. Port was again aspirated and flushed with heparinized saline and then with a final heparin flush of 1,000 U/mL. The incision was closed with running 3-0 Vicryl suture, and the skin was closed with a running 4-0 Monocryl subcuticular suture. Attention was then turned to the PleurX catheter where the sewing collar site was determined by palpation. A linear incision was made, and the sewing collar was found fairly rapidly. Collar was dissected from the surrounding adipose tissue and delivered into the operative field. The catheter was removed from the chest, and then the entire catheter was pulled through the entry incision. The operative incision was closed with running 3-0 Vicryl suture, and the skin was closed with running 4-0 Monocryl subcuticular suture. Patient tolerated the procedure well and left the operating room in satisfactory condition. A chest x- ray is pending. [facility]
== END 2020-01-16 11:45 | disposition home or self-care (01) ==
LOC: M SDC 07:00
PROVIDERS: ATTEND Thoracic Surgery (Cardiothoracic Vascular Surgery)
DX: Z45.2 Encounter for adjustment and management of vascular access device (principal); J91.0 Malignant pleural effusion; C50.919 Malignant neoplasm of unspecified site of unspecified female breast; J45.909 Unspecified asthma, uncomplicated; K21.9 Gastro-esophageal reflux disease without esophagitis; Z92.3 Personal history of irradiation; Z92.21 Personal history of antineoplastic chemotherapy; R06.02 Shortness of breath; Z79.899 Other long term (current) drug therapy; Z87.891 Personal history of nicotine dependence; F41.9 Anxiety disorder, unspecified; F32.9 Major depressive disorder, single episode, unspecified; Z88.8 Allergy status to other drugs, medicaments and biological substances
CPT/HCPCS: 32552; 36415; 36561; 71045; 76000; 80048; 85027; 85610; 85730; C1788; C9290; J0690; J1642; J1644; J2250; J2370; J2405; J3010

== ENCOUNTER → 2020-01-20 | Outpatient (CLI) | payer MEDICARE ==
[~2020-01-20] MED LIST changes: +ASPI81CH33 PO; +GASTROGRAFIN SOLUTION 30ML (Q9963) As Ordered ONE; +HYDR-3713 PO; +ISOVUE-370 76% 100ML VIAL As Ordered ONE; +LIDO2.5C15 TOP; -LIDOCAINE 1% MDV 20ML VIAL SQ PRN; +LISI-542 PO; +METO1TAB87 PO; +PACL150I IV
--- NOTE | 2020-01-20 19:45 | REP ---
INDICATION: METASTATIC BREAST CA. COMPARISON: 10/12/2019 TECHNIQUE: Axial contrast-enhanced images from the lung bases to the pubic symphysis using 100 cc Isovue 370 intravenous contrast material. Delayed images of the abdomen with coronal and sagittal reformations obtained. This CT examination was performed using the following dose reduction techniques: Automated exposure control, adjustment of mA and/or kv according to the patient's size, and the use of iterative reconstruction technique. FINDINGS: A 9 mm simple stable cyst is identified within the left hepatic lobe. Spleen, pancreas, gallbladder, bilateral adrenal glands are normal. Left kidney includes multiple nonobstructing calculi up to 3 mm. Right kidney demonstrates grade 3/4 hydroureteronephrosis with dense material in the distal right ureter/UVJ which may reflect obstructing nephrolith/gravel. There is no evidence for bowel obstruction or acute inflammatory enteric process. Colonic and sigmoid diverticula noted without acute diverticulitis. Pelvis demonstrates normal bladder and evidence for prior hysterectomy. No ascites. No free air. No adenopathy. Abdominal aorta without aneurysm or dissection. Musculoskeletal structures demonstrate osteopenia I degenerative changes without acute osseous abnormality. IMPRESSION: 1. Grade 3/4 right hydroureteronephrosis with suspected obstructing material in the distal right ureter/UVJ. Urology consultation is recommended. Non-obstructing left renal calculi up to 4 mm. 2. Stable 9 mm left hepatic cyst. 3. Colonic diverticula without acute diverticulitis. 4. No further acute abdominopelvic pathology appreciated. <Electronically signed by Amaury Tinajero > 01/20/201940
--- NOTE | 2020-01-20 20:18 | REP ---
INDICATION: METASTATIC BREAST CA COMPARISON: 10/12/2019 TECHNIQUE: Axial contrast enhanced images from the thoracic inlet to the upper abdomen with coronal and sagittal reformations using 100 ml Isovue 370 intravenous contrast material followed by CT of the abdomen and pelvis. This CT examination was performed using the following dose reduction techniques: Automated exposure control, adjustment of mA and/or kv according to the patient's size, and use of iterative reconstruction technique. FINDINGS: Chronic appearing moderate/early advanced subpleural fibrosis and scattered scarring/interstitial changes are appreciated along with right pleural thickening. Previously noted right pleural effusion and scattered infiltrates on 10/12/2019 examination have resolved. No acute consolidation, obvious suspicious nodule or mass lesion identified. Tracheobronchial tree is patent. Nonspecific axillary and mediastinal lymph nodes measure up to 8 mm. Thoracic aorta without aneurysm or dissection. Mild cardiomegaly suggested with atherosclerotic changes and no pericardial effusion. Musculoskeletal structures are intact and without obvious acute osseous abnormality. Left-sided Gcnven-E-Jkdv identified with tip in the SVC. Evidence for prior bilateral mastectomy. IMPRESSION: 1. Chronic appearing changes as noted above including subpleural fibrosis, right-sided pleural thickening and scattered interstitial changes. Previously noted small pleural effusion and scattered infiltrates primarily left lower lobe have resolved. 2. No obvious acute process appreciated. <Electronically signed by Amaury Tinajero > 01/20/202014
== END ==
LOC: M RAD 11:21
PROVIDERS: ATTEND Specialist
DX: I51.7 Cardiomegaly (principal); Z85.3 Personal history of malignant neoplasm of breast
CPT/HCPCS: 71260; 74177; J1642; Q9963; Q9967

== ENCOUNTER 2020-01-21 08:24 | Emergency (ER) | payer MEDICARE ==
[~2020-01-21] VITALS: Ht 154.9 cm; Wt 79.5 kg
[~2020-01-21 08:24] MED LIST changes: -ASPI81CH33 PO; -GASTROGRAFIN SOLUTION 30ML (Q9963) As Ordered ONE; -ISOVUE-370 76% 100ML VIAL As Ordered ONE; -LISI-542 PO; -METO1TAB87 PO
--- NOTE | 2020-01-21 08:53 | REP ---
INDICATION: CHEST PAIN COMPARISON: 01/16/2020 TECHNIQUE: Portable AP view of the chest FINDINGS: The mediastinum and cardiac silhouette are stable and within normal limits for portable technique. Jduwct-[id number] in stable position with tip in the SVC. The lung schafer are clear without acute consolidation, effusion, or pneumothorax. Skeletal structures are intact. IMPRESSION: No acute cardiopulmonary process appreciated. <Electronically signed by Amaury Tinajero > 01/21/20 0854
[2020-01-21] MEDS ORDERED: ONDANSETRON 4MG/2ML VIAL IV ONE ×3 (09:00→11:15)
[2020-01-21] MEDS: MORPHINE 2 MG/ML 1ML VIAL (J2270) IV PRN ×2 (09:11→10:52)
[2020-01-21 09:19] LABS: BASO # 0.1 10^3/uL (0.0-0.2); BASO % 0.8 % (0.0-1.0); EOS # 0.1 10^3/uL (0.0-0.5); EOS % 2.2 % (0.0-3.0); HEMATOCRIT 37.6 % (36.0-47.0); HEMOGLOBIN 11.7 g/dl (12.0-15.5); LYMPH # 1.1 10^3/uL (1.5-5.0); LYMPH % 18.9 % (24.0-44.0); MEAN CORPUSCULAR HEMOGLOBIN 32.3 pg (27.0-33.0); MEAN CORPUSCULAR HGB CONC 31.1 g/dl (32.0-36.5); MEAN CORPUSCULAR VOLUME 103.9 fl (80.0-96.0); MONO # 0.7 10^3/uL (0.0-0.8); MONO % 11.9 % (0.0-5.0); NEUTROPHILS # 3.9 10^3/uL (1.5-8.5); NEUTROPHILS % 65.5 % (36.0-66.0); PLATELET COUNT, AUTOMATED 344 10^3/uL (150-450); RED BLOOD COUNT 3.62 10^6/uL (4.00-5.40)
[2020-01-21 09:32] LABS: FREE T4 0.72 NG/DL (0.76-1.46); THYROID STIMULATING HORMONE 3.16 uIU/ML (0.358-3.740)
[2020-01-21] MEDS ORDERED: NITROGLYCERIN 0.4 MG SUBL TABLET As Ordered ONE (10:54)
[2020-01-21] MEDS ORDERED: NITROGLYCERIN 0.4 MG SUBL TABLET SL PRN ×2 (11:00→11:15)
[2020-01-21] MEDS ORDERED: NS 1,000 ML IV SCH (11:00)
[2020-01-21] MEDS ORDERED: HEPARIN DRIP 25,000 UNITS in IV 1 EA IV SCH (11:04)
[2020-01-21] MEDS ORDERED: NS 500 ML IV ONE (11:15)
[2020-01-21] MEDS ORDERED: ASPIRIN 81 MG CHEW TABLET PO ONE (11:15)
[2020-01-21] MEDS ORDERED: HEPARIN SOD (PORCINE) 5000UNITS/ML 1ML VIAL/SYRINGE IV ONE (11:15)
[2020-01-21 11:30] LABS: INR 1.05; PROTHROMBIN TIME 13.9 SECONDS (12.5-14.3)
[2020-01-21 11:31] LABS: PARTIAL THROMBOPLASTIN TIME 33.6 SECONDS (24.2-38.5)
[2020-01-21 12:18] VITALS: BP 161/84
--- NOTE | 2020-01-21 15:01 | ECGEPIP ---
[facility] - ED Test Date: 2020-01-21 Pat Name: CHAYA FONTANEZ Department: Room: - Gender: Female Database Admin: zaid : 1945 Requested By: Marco Antonio Ordaz Order Number: [id number] Reading MD: Marco Antonio Ordaz Measurements Intervals [place] Rate: 89 P: 57 DE: 155 QRS: 0 QRSD: 93 T: 30 QT: 376 QTc: 458 Interpretive Statements SINUS RHYTHM POSSIBLE INFERIOR MYOCARDIAL INFARCTION, PROBABLY OLD NONSPECIFIC ST T WAVE CHANGES BORDERLINE PROLONGED QTC 01/12/[address] T WAVE CHANGES Electronically Signed on 01-21-2020 15:01:25 EST by Marco Antonio Ordaz
--- NOTE | 2020-01-21 15:03 | ECGEPIP ---
[facility] - ED Test Date: 2020-01-21 Pat Name: CHAYA FONTANEZ Department: Room: - Gender: Female Parker: ansley : 1945 Requested By: Marco Antonio Ordaz Order Number: [id number] Reading MD: Marco Antonio Ordaz Measurements Intervals [place] Rate: 79 P: 41 LA: 156 QRS: -12 QRSD: 90 T: 28 QT: 395 QTc: 454 Interpretive Statements SINUS RHYTHM NONSPECIFIC ST T WAVE CHANGES POSSIBLE INFERIOR WALL ND, AGE UNDETERMINED CW 01/21/[address] T WAVE CHANGES Electronically Signed on 01-21-2020 15:03:27 EST by Marco Antonio Ordaz
[2020-01-24] MEDS ORDERED: ASPI81CH33 PO (11:54)
[2020-01-24] MEDS ORDERED: METO1TAB87 PO (11:54)
[2020-01-24] MEDS ORDERED: LISI-542 PO (11:54)
== END 2020-01-21 12:18 | disposition short-term general hospital (02) ==
LOC: M ED 08:24
DX: I21.4 Non-ST elevation (NSTEMI) myocardial infarction (principal); C50.919 Malignant neoplasm of unspecified site of unspecified female breast; I10 Essential (primary) hypertension; Z79.899 Other long term (current) drug therapy; Z79.82 Long term (current) use of aspirin; Z88.8 Allergy status to other drugs, medicaments and biological substances
CPT/HCPCS: 71045; 80047; 83690; 84439; 84443; 84484; 85025; 85610; 85730; 93005; 93041; 94760; 96365; 96375; 96376; 99285; J1644; J2270; J2405; U0002

== ENCOUNTER → 2020-01-24 | Outpatient (CLI) | payer MEDICARE ==
[~2020-01-24] MED LIST changes: +ASPI81CH33 PO; +LISI-542 PO; +METO1TAB87 PO
--- NOTE | 2020-01-24 13:59 | REP ---
INDICATION: RIGHT LAT DECUBITUS PLEURAL EFFUSION COMPARISON: None. TECHNIQUE: PA and lateral along with right lateral decubitus. FINDINGS: A small layering right pleural effusion is identified with right basilar atelectasis. Mediastinum and cardiac silhouette stable. Vqhvjg-F-Svzf identified with tip in the SVC. No cardiomegaly. Left hemithorax is clear. No pneumothorax. Skeletal structures intact. IMPRESSION: Small layering right pleural effusion and right basilar atelectasis. <Electronically signed by Amaury Tinajero > 01/24/20 [id number]
== END ==
LOC: M RAD 13:17
PROVIDERS: ATTEND Internal Medicine Medical Oncology
DX: J90 Pleural effusion, not elsewhere classified (principal); J98.11 Atelectasis; C50.919 Malignant neoplasm of unspecified site of unspecified female breast

== ENCOUNTER → 2020-02-15 | Outpatient (CLI) | payer MEDICARE ==
[~2020-02-15] MED LIST changes: +DEXA1TA PO
--- NOTE | 2020-02-15 15:52 | REP ---
INDICATION: BREAST CANCER. COMPARISON: PA and lateral chest dated 01/24/2020. TECHNIQUE: Upright PA and lateral chest. FINDINGS: There is a right pleural effusion, unchanged. The lung schafer are otherwise clear. Cardiac size is normal. The adriel, mediastinum, and skeletal structures are unremarkable. There is a left subclavian Eijawa-U-Qask with the tip the superior vena cava in satisfactory location, unchanged. IMPRESSION: Right pleural effusion. Left subclavian Oabvxw-Y-Wvmm. No interval change. <Electronically signed by Hussain Arias > 02/15/20 [id number]
== END ==
LOC: M RAD 14:23
PROVIDERS: ATTEND Internal Medicine Medical Oncology
DX: J90 Pleural effusion, not elsewhere classified (principal); Z95.828 Presence of other vascular implants and grafts; C50.919 Malignant neoplasm of unspecified site of unspecified female breast

== ENCOUNTER → 2020-02-28 | Outpatient (REF) | payer MEDICARE ==
[2020-02-28 09:41] LABS: BASO # 0.1 10^3/uL (0.0-0.2); BASO % 0.3 % (0.0-1.0); EOS # 0.1 10^3/uL (0.0-0.5); EOS % 0.7 % (0.0-3.0); HEMATOCRIT 32.7 % (36.0-47.0); LYMPH # 1.2 10^3/uL (1.5-5.0); LYMPH % 7.9 % (24.0-44.0); MEAN CORPUSCULAR HEMOGLOBIN 33.9 pg (27.0-33.0); MEAN CORPUSCULAR HGB CONC 30.6 g/dl (32.0-36.5); MEAN CORPUSCULAR VOLUME 110.8 fl (80.0-96.0); MONO # 1.1 10^3/uL (0.0-0.8); MONO % 7.5 % (0.0-5.0); NEUTROPHILS # 12.2 10^3/uL (1.5-8.5); NEUTROPHILS % 82.6 % (36.0-66.0); PLATELET COUNT, AUTOMATED 433 10^3/uL (150-450); RED BLOOD COUNT 2.95 10^6/uL (4.00-5.40); WHITE BLOOD COUNT 14.8 10^3/uL (4.0-10.0)
== END ==
LOC: M LAB REF 09:17
PROVIDERS: ATTEND Dentist
DX: C79.81 Secondary malignant neoplasm of breast (principal)

== ENCOUNTER → 2020-03-15 | Outpatient (CLI) | payer MEDICARE ==
[~2020-03-15] MED LIST changes: -ALEN70TA74 PO; +ALEN70TA82 PO; -AMIT25TA; +AMIT25TA17; +FUROSEMIDE 20MG/2ML VIAL (J1940) As Ordered ONE; +FUROSEMIDE 20MG/2ML VIAL (J1940) IV ONE
[2020-03-15 11:17] LABS: BLOOD UREA NITROGEN 25 MG/DL (7-18); CALCIUM LEVEL 9.3 MG/DL (8.8-10.2); CARBON DIOXIDE LEVEL 29 MEQ/L (21-32); CHLORIDE LEVEL 107 MEQ/L (98-107); CREATININE FOR GFR 0.69 MG/DL (0.55-1.30); GLOMERULAR FILTRATION RATE > 60.0 (>39); GLUCOSE, FASTING 79 MG/DL (70-100); POTASSIUM SERUM 3.9 MEQ/L (3.5-5.1); SODIUM LEVEL 142 MEQ/L (136-145)
--- NOTE | 2020-03-15 14:31 | REP ---
INDICATION: HYDRONEPHROSIS WITH RENAL AND URETERAL CALCULOUS OBSTRUCTION. COMPARISON: None. TECHNIQUE/RADIOTRACER AND DOSE: Following the intravenous administration of 8.8 mCi technetium 99 M Mag 3, flow images are obtained in the posterior projection, followed by delayed images up to 30 minutes. Then 20 mg of Lasix was given intravenously and further imaging was performed. FINDINGS: There is a mildly greater degree of perfusion of the left kidney compared to the right. Right kidney peers smaller than the left. There is homogeneous cortical uptake with bilateral symmetrical excretion. There is mild pelviectasis but no overt hydronephrosis. Split function is 54.7 % on the left and 45.3 % on the right. Time to peak is normal bilaterally as are the T1/2 values. Renal function curves appear normal in their downward slopes. After Lasix administration the mild residual activity in the renal pelvis bilaterally clears promptly with no persistence. There is mild postvoid residual in the urinary bladder after voiding. IMPRESSION: Essentially normal nuclear renal scintigraphy, normal function bilaterally with no hydronephrosis or urinary tract obstruction. Mild postvoid residual in the urinary bladder after voiding. <Electronically signed by Hussain Brothers > 03/15/20 [id number]
--- NOTE | 2020-03-15 19:25 | ECGEPIP ---
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
--- NOTE | 2020-03-16 03:55 | REP ---
INDICATION: HYDRONEPHROSIS WITH RENAL/NUC MED APPT 1ST/LAB COMPARISON: 02/15/2020, 01/20/2020 TECHNIQUE: PA and lateral. FINDINGS: Mediastinum and cardiac silhouette are within normal limits and stable. Tqthyg-H-Jjbf identified with tip in the SVC. Left hemithorax is well aerated and clear. Right hemithorax demonstrates small right pleural effusion suggested on frontal radiograph similar to recent prior examination and increased as compared with older examinations including 12/09/2019. No new acute consolidation. No pneumothorax. Skeletal structures intact. IMPRESSION: Small residual right pleural effusion unchanged from most recent prior examination <Electronically signed by Amaury Tinajero > 03/16/20 1063
== END ==
LOC: M RAD 09:48 → M LAB 09:48
PROVIDERS: ATTEND Urology
DX: N13.2 Hydronephrosis with renal and ureteral calculous obstruction (principal); R94.31 Abnormal electrocardiogram [ECG] [EKG]; J91.8 Pleural effusion in other conditions classified elsewhere
CPT/HCPCS: 36415; 71046; 78708; 80048; 93005; A9562

== ENCOUNTER 2020-04-30 19:19 | Inpatient (IN) | payer MEDICARE ==
[~2020-04-30] VITALS: Ht 154.9 cm; Wt 78.0 kg
[~2020-04-30 19:19] MED LIST changes: -D3 S20002 PO; -DEXA0.5E2 SSP; -DULO1CAP6 PO; -ELIQ5TAB PO; -EQL50TAB2 PO; -FLON1SPR; -GASTROGRAFIN SOLUTION 30ML (Q9963) As Ordered ONE; -ISOVUE-370 76% 100ML VIAL As Ordered ONE; -METO25TA4 PO; -NEUR600T PO; -OYST500T91 PO; -REST0.05 OU; -XARE15TA PO; -XARE20TA PO
[2020-04-30] MEDS ORDERED: DULO1CAP6 PO ×2 (19:33→21:51)
[2020-04-30] MEDS ORDERED: ALEN70TA82 PO (21:40)
[2020-04-30] MEDS ORDERED: OYST500T91 PO (21:40)
[2020-04-30] MEDS ORDERED: EQL50TAB2 PO (21:51)
[2020-04-30] MEDS ORDERED: METO25TA4 PO (21:51)
[2020-04-30] MEDS ORDERED: PROC10TA4 PO (21:51)
[2020-04-30] MEDS ORDERED: QUET25TA3 PO (21:51)
[2020-04-30] MEDS ORDERED: DEXA1TA PO (21:51)
[2020-04-30] MEDS ORDERED: FLON1SPR (21:51)
[2020-04-30] MEDS ORDERED: PRESCAP PO (21:51)
[2020-04-30] MEDS ORDERED: CETI-24 PO (21:51)
[2020-04-30] MEDS ORDERED: REST0.05 OU (21:51)
[2020-04-30] MEDS ORDERED: D3 S20002 PO (21:51)
[2020-04-30] MEDS ORDERED: NEUR600T PO (21:51)
[2020-04-30] MEDS ORDERED: LISI10TA22 PO (21:51)
[2020-04-30] MEDS ORDERED: DEXA0.5E2 SSP (21:51)
[2020-04-30 22:53] LABS: BASO # 0.1 10^3/uL (0.0-0.2); BASO % 0.5 % (0.0-1.0); EOS # 0.2 10^3/uL (0.0-0.5); EOS % 0.8 % (0.0-3.0); HEMATOCRIT 36.3 % (36.0-47.0); HEMOGLOBIN 11.2 g/dl (12.0-15.5); LYMPH # 1.7 10^3/uL (1.5-5.0); MEAN CORPUSCULAR HEMOGLOBIN 34.6 pg (27.0-33.0); MEAN CORPUSCULAR HGB CONC 30.9 g/dl (32.0-36.5); MONO # 1.2 10^3/uL (0.0-0.8); MONO % 6.4 % (2.0-8.0); NEUTROPHILS # 15.9 10^3/uL (1.5-8.5); NEUTROPHILS % 82.4 % (36.0-66.0); PLATELET COUNT, AUTOMATED 469 10^3/uL (150-450); RED BLOOD COUNT 3.24 10^6/uL (4.00-5.40); WHITE BLOOD COUNT 19.3 10^3/uL (4.0-10.0)
[2020-04-30 22:57] LABS: INR 1.07; PROTHROMBIN TIME 14.1 SECONDS (12.5-14.3)
[2020-04-30 22:58] LABS: PARTIAL THROMBOPLASTIN TIME 28.3 SECONDS (24.2-38.5)
[2020-04-30 23:26] LABS: ALBUMIN 3.4 GM/DL (3.2-5.2); ALT/SGPT 39 U/L (12-78); BILIRUBIN,DIRECT < 0.1 MG/DL (0.0-0.2); BLOOD UREA NITROGEN 18 MG/DL (7-18); CALCIUM LEVEL 8.8 MG/DL (8.8-10.2); CARBON DIOXIDE LEVEL 26 MEQ/L (21-32); CHLORIDE LEVEL 109 MEQ/L (98-107); CK-MB VALUE MASS < 1.0 NG/ML (<3.6); CPK CREATINE PHOSPHOKINASE 40 U/L (26-192); CREATININE FOR GFR 0.68 MG/DL (0.55-1.30); GLOMERULAR FILTRATION RATE > 60.0 (>39); GLUCOSE, FASTING 102 MG/DL (70-100); NT-PRO BNP 186 PG/ML (<450); POTASSIUM SERUM 3.9 MEQ/L (3.5-5.1); SODIUM LEVEL 142 MEQ/L (136-145); TOTAL PROTEIN 7.1 GM/DL (6.4-8.2); TROPONIN I < 0.02 NG/ML (< 0.10)
[2020-04-30 23:59] LABS: RSV AMPLIFICATION NEGATIVE (NEGATIVE)
[2020-05-01] MEDS ORDERED: MAALOX 30 ML SUSP *UDC PO PRN
[2020-05-01] MEDS ORDERED: SODIUM CHLORIDE 0.9% 1000ML IV SCH
[2020-05-01] MEDS ORDERED: MOM 30ML SUSPENSION UDC PO PRN
[2020-05-01] MEDS ORDERED: ACETAMINOPHEN TAB 650MG DOSE (2X325MG) PO PRN
--- NOTE | 2020-05-01 00:07 | HPEPDOC ---
[facility] Medical History & Physical Date of Admission May 01, 2020 Date of Service: May 01, 2020 Other Provider [address] Attending Physician: MIKY WAHL MD History and Physical TIME OF SERVICE: 1210AM CHIEF COMPLAINT: sent by HISTORY OF PRESENT ILLNESS: This 74 yr old F was sent by to the ER for evaluation bc her CT of the chest identified a PE. The patient reports feeling short of breath off and on for about 5 months since she started chemo, has been feeling dizzy for 2 days. Yesterday her dyspnea made it difficult for her to walk. She has also had swelling of both legs. Her last session of chemo was about 2 weeks ago. She denies having runny nose, cough, overt chest pain, abdominal pain, fever or chills. REVIEW OF SYSTEMS: 12-point review of systems negative except as listed in HPI PAST MEDICAL/ SURGICAL HISTORY: ER +/MS +/HER2 + metastatic cancer of the breasts s/p bilateral lumpectomies with subsequent mastectomies (initial diagnosis affecting the left breast was in 1999, with subsequent diagnosis affecting the right breast in 2005 with recurrence in 2018 & mets to the chest wall) Osteoporosis Chronic HTN Depression Insomnia Barretts esophagus DLP Class 1 obesity Placement of infuse a port Placement & subsequent of chest tube to manage pleural effusion Hysterectomy SOCIAL HISTORY: She is a former smoker, drinks wine, is and has 3 children. FAMILY HISTORY: Breast cancer - mother / CAD -father ALLERGIES: Please see below. HOME MEDICATIONS: Please see below. PHYSICAL EXAMINATION: Vital Signs Date Time Temp Pulse Resp B/P (MAP) Pulse Ox O2 Delivery O2 Flow Rate FiO2 04/30/20 19:22 97.6 104 16 162/58 (92) 95 Room Air GENERAL APPEARANCE: well nourished and developed / NAD HEENT: EOMI / mask covering lower face CARDIOVASCULAR: RRR/NMRG / +1 BLE edema LUNGS: CTAB on RA / not using accessory muscles ABDOMEN: obese/ soft & NT MUSCULOSKELETAL: MICAH x 4 INTEGUMENT: mild generalized pallor /not flushed or diaphoretic NEUROLOGICAL: speech not dysarthric PSYCHIATRIC: A&Ox 3 / able to understand and follow all commands LABORATORY DATA: 04/30/20 20:05 04/30/20 20:05: Immature Granulocyte % (Auto) 0.9, Neutrophils (%) (Auto) 82.4H, Lymphocytes (%) (Auto) 9.0L, Monocytes (%) (Auto) 6.4, Eosinophils (%) (Auto) 0.8, Basophils (%) (Auto) 0.5, Neutrophils # (Auto) 15.9H, Lymphocytes # (Auto) 1.7, Monocytes # (Auto) 1.2H, Eosinophils # (Auto) 0.2, Basophils # (Auto) 0.1, Nucleated Red Blood Cells % (auto) 0.0, Prothrombin Time 14.1H, Prothromb Time International Ratio 1.07, Activated Partial Thromboplast Time 28.3, Anion Gap 7L, Glomerular Filtration Rate > 60.0, Calcium Level 8.8, Direct Bilirubin < 0.1, Aspartate Amino Transf (AST/SGOT) 28, Alanine Aminotransferase (ALT/SGPT) 39, Alkaline Phosphatase 150H, Total Creatine Kinase 40, Creatine Kinase MB < 1.0, Creatine Kinase MB Relative Index 2.50, Troponin I < 0.02, ZN-Uyl-V-Type Natriuretic Peptide 186, Total Protein 7.1, Albumin 3.4, Albumin/Globulin Ratio 0.9L, Thyroid Stimulating Hormone (TSH) 2.580 04/30/20 22:52: Coronavirus (COVID-19)(PCR) NEGATIVE, Influenza Type A (RT-PCR) NEGATIVE, Influenza Type B (RT-PCR) NEGATIVE, Respiratory Syncytial Virus (PCR) NEGATIVE IMAGING: CT chest April 30 2020 IMPRESSION:1. Relatively new appearing pulmonary emboli in the right lower lobe pulmonary arteries. No associated areas of consolidation or atelectasis. 2. Chronic pulmonary parenchymal changes including small stable right pleural effusion and trace right basilar atelectasis. 3. As above. MICROBIOLOGY: Influenza A/B, RSV & COVID 19 neg ASSESSMENT: is a 74 yr old w a hx of breast cancer, HTN, Barrets esophagus, Depression & Obesity who will be admitted for management of PE and evaluation of leukocytosis. PLAN: 1 Submassive vs Acute Pulmonary Embolism Unfortunately the CT didnt mention the RV/LV ratio, if echo shows signs of right heart strain. The trop & BNP are wnl. There are no acute changes associated with PE on the EKG. Hestia Criteria for outpatient treatment = 2 points = in pt treatment indicated Pending Echo her LUZ MARIA Score to determine risk of complications in hemodyn amically STABLE patients with Acute PE = 0-2 = low risk for complications and morality Plan: admit to medical floor / start heparin drip pending f/u Echo to r/o right heart strain ( ie RV/LV ratio >0.9 on Echo or systolic pulmonary arteria pressure > 30 or RV dilation or RV end diastolic diameter > 30 or free wall hypokinesis) the PE will be classified as sub-massive and she will not be a candidate for a DOAC. If there are no signs of heart strain then the PE is likely acute or subacute and the patient can be treated with a DOAC, but the day time team may consider calling to ensure the DOAC selected doesnt interact with her chemo / f/u BLE venous duplex bc she was c/o BLE edema 2 Leukocytosis Cause TBD Plan: f/u blood cx & monitor vitals 3 Anemia w Thrombocytosis Plan: f/u iron studies, stool occult and soluble transferrin receptor 4. Metastatic Breast Cancer f/u w as scheduled 5 Osteoporosis Alendronate & Cholecalciferol 6 Chronic HTN Lisinopril & Metoprolol 7 Depression Duloxetine 8 Class 1 obesity BMI of 32.5 complicates care DVT n/a on Heparin drip Dispo: home after at least 2 midnights stay Home Medications Scheduled Alendronate Sodium (Alendronate Sodium) 70 Mg Tablet, 70 MG PO QWEEK SUNDAYS Calcium Carbonate/Vitamin D3 (Calcium 500-Vit D3 200 Tablet) 1 Each Tablet, 1 TAB PO DAILY Cetirizine HCl (Cetirizine HCl) 10 Mg Tablet, 10 MG PO DAILY Cholecalciferol (Vitamin D3) (Vitamin D3) 50 Mcg Capsule, 50 MCG PO DAILY Cyclosporine (Restasis) 0.05% Droperette, 1 DROP OU BID Dexamethasone (Dexamethasone) 1 Mg Tablet, 1 MG PO ASDIRECTED TAKES ON THE 2ND AND 3RD DAY AFTER CHEMO Duloxetine Hcl (Duloxetine HCl) 60 Mg Capsule., 60 MG PO DAILY Gabapentin (Neurontin) 600 Mg Tablet, 600 MG PO BID Lisinopril (Lisinopril) 10 Mg Tablet, 10 MG PO DAILY Metoprolol Tartrate (Metoprolol Tartrate) 25 Mg Tablet, 25 MG PO BID Quetiapine Fumarate (Quetiapine Fumarate) 25 Mg Tablet, 25 MG PO QHS Vit A/Vit C/Vit E/Zinc/Copper (Preservision Areds Softgel) 1 Each Capsule, 2 CAP PO DAILY Vitamin B Complex (Vitamin B Complex) 1 Each Tablet, 1 TAB PO DAILY Scheduled PRN Dexamethasone (Dexamethasone) 0.5 Mg/5 Ml Elixir, 10 ML SSP QID PRN for MUCOSITIS Famotidine (Famotidine) 20 Mg Tablet, 20 MG PO BID PRN for HEARTBURN Fluticasone Propionate (Flonase Allergy Relief) 9.9 Ml [place].susp, 2 SPRAY NA BID PRN for NASAL CONGESTION Ondansetron HCl (Zofran) 4 Mg Tablet, 4 MG PO Q6-8HP PRN for nausea/vomiting Prochlorperazine Maleate (Prochlorperazine Maleate) 10 Mg Tablet, 10 MG PO Q6H PRN for NAUSEA OR VOMITING Allergies Coded Allergies: Dhncqzp-Krb-Obe Reductase Inhibitor (Verified Adverse Reaction, Intermediate, Weak muscles, 03/19/20) A-FIB/CHADSVASC A-FIB History Current/History of A-Fib/PAF?: No Current PO Anticoag Therapy: No IMKY WAHL MD May 01, 2020 00:07
[2020-05-01] MEDS ORDERED: METOPROLOL TART 25 MG TABLET PO ONE (00:10)
[2020-05-01 00:33] LABS: BILIRUBIN,TOTAL < 0.1 MG/DL (0.2-1.0)
[2020-05-01 00:49] LABS: VENOUS HCO3 25.7 MEQ/L (23.0-27.0); VENOUS O2 SATURATION 68.7 % (60.0-80.0); VENOUS PARTIAL PRESSURE CO2 41.4 mmHg (38.0-50.0); VENOUS PARTIAL PRESSURE O2 36.2 mmHg (30.0-50.0); VENOUS PH 7.411 UNITS (7.330-7.430); VENOUS STANDARD HCO3 24.8 MEQ/L
[2020-05-01 01:15] LABS: HEMOGLOBIN A1c 5.6 %
[2020-05-01 01:58] VITALS: BP 153/93
[2020-05-01] MEDS ORDERED: PROCHLORPERAZINE 5 MG TAB (S0183) PO PRN (02:35)
[2020-05-01] MEDS ORDERED: FLUTICASONE PROP 0.05% NASAL SPRAY 16 GM (FLONASE) PRN (02:35)
[2020-05-01] MEDS ORDERED: ONDANSETRON 4 MG TAB PO PRN (02:35)
[2020-05-01] MEDS: QUEtiapine FUMARATE 25 MG TAB PO SCH ×2 (02:35→21:06)
[2020-05-01] MEDS: GABAPENTIN 300 MG CAP PO SCH ×3 (03:41→21:05)
[2020-05-01] MEDS: METOPROLOL TART 25 MG TABLET PO SCH ×3 (04:38→21:06)
[2020-05-01] MEDS ORDERED: HEPARIN SOD (PORCINE) 5000UNITS/ML 1ML VIAL/SYRINGE IV PRN (05:35)
[2020-05-01] MEDS ORDERED: HEPARIN SOD (PORCINE) 5000UNITS/ML 1ML VIAL/SYRINGE IV ONE (05:45)
[2020-05-01 06:00] VITALS: BP 146/66
[2020-05-01] MEDS ORDERED: HEPARIN DRIP 25,000 UNITS in IV 1 EA IV SCH (06:00)
[2020-05-01 06:06] LABS: HEMATOCRIT 33.5 % (36.0-47.0); HEMOGLOBIN 10.3 g/dl (12.0-15.5); MEAN CORPUSCULAR HEMOGLOBIN 33.8 pg (27.0-33.0); MEAN CORPUSCULAR HGB CONC 30.7 g/dl (32.0-36.5); MEAN CORPUSCULAR VOLUME 109.8 fl (80.0-96.0); PLATELET COUNT, AUTOMATED 445 10^3/uL (150-450); RED BLOOD COUNT 3.05 10^6/uL (4.00-5.40); WHITE BLOOD COUNT 15.6 10^3/uL (4.0-10.0)
[2020-05-01] MEDS: DULoxetine 30 MG CAP (CYMBALTA) PO SCH (08:43)
[2020-05-01] MEDS: VITAMIN D 1,000 INTERNATIONAL UNITS TABLET PO SCH (08:43)
[2020-05-01 09:26] LABS: VITAMIN B12 LEVEL > 2000 PG/ML
[2020-05-01 09:27] LABS: FOLATE > 24.0 NG/ML
[2020-05-01 10:58] LABS: FERRITIN 323 NG/ML (8-252); IRON (FE) 89 UG/DL (50-170); PERCENT SATURATION 27.6 % (13.2-45.0); TOTAL IRON BINDING CAPACITY 322 UG/DL (250-450)
--- NOTE | 2020-05-01 11:57 | IPNPDOC ---
Text Note Date of Service The patient was seen on 05/01/20. NOTE SUBJECTIVE: -No acute issues overnight GENERAL APPEARANCE: well nourished and developed, NAD HEENT: EOMI, PERRLA, NCAT CARDIOVASCULAR: RRR,NMRG LUNGS: CTAB on RA, not using accessory muscles ABDOMEN: obese/ soft & NT EXT: 1+ BLE edema NEUROLOGICAL: speech not dysarthric, moving all extremities PSYCHIATRIC: A&Ox 3,able to understand and follow all commands LABORATORY DATA: Reviewed IMAGING: CT chest April 30 2020 IMPRESSION:1. Relatively new appearing pulmonary emboli in the right lower lobe pulmonary arteries. No associated areas of consolidation or atelectasis. 2. Chronic pulmonary parenchymal changes including small stable right pleural effusion and trace right basilar atelectasis. 3. As above. MICROBIOLOGY: Influenza A/B, RSV & COVID 19 neg ASSESSMENT: is a 74 yr old w a hx of metastatic breast cancer on palliative gemcitabine, HTN, Barrets esophagus, depression & bbesity who was admitted for management of incidentally found PEs on interval CT chest and evaluation of leukocytosis. PLAN: 1 Subacute vs Acute Pulmonary Embolism Unfortunately the CT didnt mention the RV/LV ratio, if echo shows signs of right heart strain. -The trop & BNP were wnl. -There are no acute changes associated with PE on the EKG. -Pending Echo -heparin drip -start eliquis -Unlikely given unremarkable proBNP, trops and stable EKG, but will check for si gns of heart strain on TTE -will FYI about starting DoAC -f/u BLE venous duplex bc she was c/o BLE edema 2 Leukocytosis -f/u blood cx & monitor vitals -UA was bland -likely reactive 2/2 thromboses 3 Anemia w Thrombocytosis -f/u iron studies, stool occult and soluble transferrin receptor 4. Multiple met [place]. -f/u w as scheduled. Will call her to discuss AC 5 Osteoporosis Alendronate & Cholecalciferol 6 Chronic HTN Lisinopril & Metoprolol 7 Depression Duloxetine 8 Class 1 obesity BMI of 32.5 complicates care DVT n/a on Heparin drip switching to eliquis Dispo: like home tomorrow VS,Fishbone, I+O VS, Fishbone, I+O Laboratory Tests 04/30/20 20:05 3/2/21 05:46 Vital Signs Date Time Temp Pulse Resp B/P (MAP) Pulse Ox O2 Delivery O2 Flow Rate FiO2 05/01/20 08:43 95 151/87 05/01/20 06:00 97.1 16 100 Room Air I&O- Last 24 Hours up to 6 AM 05/01/20 05:59 Intake Total 0 ml Output Total 0 ml Balance 0 ml SMOOTH MANN MD May 01, 2020 09:08
[2020-05-01] MEDS ORDERED: APIXABAN 5 MG TAB (ELIQUIS) PO SCH (13:30)
[2020-05-01 14:00] VITALS: BP 148/83
[2020-05-01] MEDS ORDERED: APIXABAN 5 MG TAB (ELIQUIS) PO ONE (15:00)
--- NOTE | 2020-05-01 15:07 | REP ---
INDICATION: lower extremity edema COMPARISON: None. TECHNIQUE: Brothers scale and color Doppler evaluation bilateral lower extremities using linear high frequency transducer. FINDINGS: Ultrasound examination of the right and left lower extremity deep venous structures from the common femoral vein to the popliteal vein demonstrates normal compressibility flow and wave patterns in response to respiration and augmentation. There is no evidence for deep venous thrombosis. IMPRESSION: No evidence for deep venous thrombosis. <Electronically signed by Amaury Tinajero > 05/01/20 [id number]
[2020-05-01] MEDS ORDERED: RIVAROXABAN 10 MG TAB (XARELTO) PO SCH (18:00)
[2020-05-01 19:54] LABS: CLOSTRIDIUM DIFFICILE PCR NEGATIVE (NEGATIVE)
[2020-05-01 22:00] VITALS: BP 143/79
[2020-05-02] MEDS ORDERED: APIXABAN 5 MG TAB (ELIQUIS) PO ONE
[2020-05-02 06:00] VITALS: BP 141/73
[2020-05-02] MEDS: GABAPENTIN 300 MG CAP PO SCH (08:40)
[2020-05-02 08:45] VITALS: BP 131/70
[2020-05-02] MEDS: DULoxetine 30 MG CAP (CYMBALTA) PO SCH (08:45)
[2020-05-02] MEDS: METOPROLOL TART 25 MG TABLET PO SCH (08:45)
[2020-05-02] MEDS: VITAMIN D 1,000 INTERNATIONAL UNITS TABLET PO SCH (08:45)
[2020-05-02] MEDS ORDERED: ELIQ5TAB PO (08:52)
[2020-05-02] MEDS ORDERED: APIXABAN 5 MG TAB (ELIQUIS) PO SCH (09:00)
[2020-05-02 09:32] LABS: HEMATOCRIT 35.9 % (36.0-47.0); HEMOGLOBIN 11.3 g/dl (12.0-15.5); MEAN CORPUSCULAR HEMOGLOBIN 34.8 pg (27.0-33.0); MEAN CORPUSCULAR HGB CONC 31.5 g/dl (32.0-36.5); MEAN CORPUSCULAR VOLUME 110.5 fl (80.0-96.0); PLATELET COUNT, AUTOMATED 533 10^3/uL (150-450); RED BLOOD COUNT 3.25 10^6/uL (4.00-5.40); WHITE BLOOD COUNT 10.3 10^3/uL (4.0-10.0)
[2020-05-02] MEDS ORDERED: XARE20TA PO (09:57)
[2020-05-02] MEDS ORDERED: XARE15TA PO (09:57)
--- NOTE | 2020-05-02 09:59 | DS.PDOC ---
Discharge Summary General Date of Admission Apr 30, 2020 at 23:58 Date of Discharge 05/02/2020 Attending Physician: SMOOTH MANN MD Discharge Summary PROCEDURES PERFORMED DURING STAY: None ADMITTING DIAGNOSES: PE DISCHARGE DIAGNOSES: Acute pulmonary embolism ER +/VT +/HER2 + metastatic cancer of the breasts s/p bilateral lumpectomies with subsequent mastectomies (initial diagnosis affecting the left breast was in 1999, with subsequent diagnosis affecting the right breast in 2005 with recurrence in 2018 & mets to the chest wall), currently on gemcitabine Osteoporosis Chronic HTN Depression Insomnia Barretts esophagus DLP Class 1 obesity COMPLICATIONS/CHIEF COMPLAINT: SIRS. HISTORY OF PRESENT ILLNESS: 74 yr old F was sent by to the ER for evaluation because her CT of the chest for interval evaluation incidentally identified a PE. The patient reported feeling short of breath off and on for about 5 months since she started chemo, and feeling dizzy for 2 days and had also noted swelling of both legs. She denies having runny nose, cough, overt chest pain, abdominal pain, fever or chills. HOSPITAL COURSE: On admission, she was started on a heparin gtt which she tolerated well. I spoke with Dr. Tapia who was ok with starting her on a NoAC and I transitioned her to eliquis which started on 05/01/2020. Her SOB improved, LE doppler venous US showed no evidence of DVTs and labs remained stable. She is now being discharged home with xarelto for treatment of a PE for lifetime use given having developed unprovoked thrombosis i/s/o a malignancy. Of note, had initially placed her on eliquis but insurance covered xarelto so I switched it at discharge. DISCHARGE MEDICATIONS: Please see below. ALLERGIES: Please see below. PHYSICAL EXAMINATION ON DISCHARGE: VITAL SIGNS: Please see below. GENERAL APPEARANCE: well nourished and developed, NAD HEENT: EOMI, PERRLA, NCAT CARDIOVASCULAR: RRR,NMRG LUNGS: CTAB on RA, not using accessory muscles ABDOMEN: obese/ soft & NT EXT: 1+ BLE edema NEUROLOGICAL: speech not dysarthric, moving all extremities PSYCHIATRIC: A&Ox 3,able to understand and follow all commands LABORATORY DATA: See below IMAGING: CT chest April 30 2020 IMPRESSION:1. Relatively new appearing pulmonary emboli in the right lower lobe pulmonary arteries. No associated areas of consolidation or atelectasis. 2. Chronic pulmonary parenchymal changes including small stable right pleural effusion and trace right basilar atelectasis. 3. As above. PROGNOSIS: Good ACTIVITY: As tolerated DIET: 2g sodium DISCHARGE PLAN: Home DISPOSITION: Home DISCHARGE INSTRUCTIONS: Take xarelto as prescribed. PCP and oncology follow up within 7d of hospital discharge ITEMS TO FOLLOWUP ON ON OUTPATIENT: PE metastatic breast cancer DISCHARGE CONDITION: Stable TIME SPENT ON DISCHARGE: 34 minutes. Vital Signs/I&Os Vital Signs Date Time Temp Pulse Resp B/P (MAP) Pulse Ox O2 Delivery O2 Flow Rate FiO2 05/02/20 06:00 97.2 81 16 141/73 (95) 96 Room Air I&O- Last 24 Hours up to 6 AM 05/02/20 06:00 Intake Total 1810 ml Output Total 1250 ml Balance 560 ml Laboratory Data Labs 24H Laboratory Tests 2 05/01/20 12:58: Activated Partial Thromboplast Time 202.4*H 05/01/20 18:48: Clostridium difficile [id number] PRESUMPTIVE NEGATIVE, Clostridium difficile To michi (PCR) NEGATIVE Microbiology Microbiology 05/01/20 Blood Culture, Received Pending 05/01/20 Blood Culture - Preliminary, Resulted No growth after 24 hours . All specim... Discharge Medications Scheduled Alendronate Sodium (Alendronate Sodium) 70 Mg Tablet, 70 MG PO QWEEK, (Reported) SUNDAYS Calcium Carbonate/Vitamin D3 (Calcium 500-Vit D3 200 Tablet) 1 Each Tablet, 1 T AB PO DAILY, (Reported) Cetirizine HCl (Cetirizine HCl) 10 Mg Tablet, 10 MG PO DAILY, (Reported) Cholecalciferol (Vitamin D3) (Vitamin D3) 50 Mcg Capsule, 50 MCG PO DAILY, (Reported) Cyclosporine (Restasis) 0.05% Droperette, 1 DROP OU BID, (Reported) Dexamethasone (Dexamethasone) 1 Mg Tablet, 1 MG PO ASDIRECTED, (Reported) TAKES ON THE 2ND AND 3RD DAY AFTER CHEMO Duloxetine Hcl (Duloxetine HCl) 60 Mg Capsule.dr, 60 MG PO DAILY, (Reported) Gabapentin (Neurontin) 600 Mg Tablet, 600 MG PO BID, (Reported) Lisinopril (Lisinopril) 10 Mg Tablet, 10 MG PO DAILY, (Reported) Metoprolol Tartrate (Metoprolol Tartrate) 25 Mg Tablet, 25 MG PO BID, (Reported) Quetiapine Fumarate (Quetiapine Fumarate) 25 Mg Tablet, 25 MG PO QHS, (Reported) Rivaroxaban (Xarelto) 15 Mg Tablet, 1 TAB PO BID Rivaroxaban (Xarelto) 20 Mg Tablet, 1 TAB PO DAILY with food. To begin this script on 05/23/2020 after the 3 weeks of 15mg BID xarelto loading dose Vit A/Vit C/Vit E/Zinc/Copper (Preservision Areds Softgel) 1 Each Capsule, 2 CAP PO DAILY, (Reported) Vitamin B Complex (Vitamin B Complex) 1 Each Tablet, 1 TAB PO DAILY, (Reported) Scheduled PRN Dexamethasone (Dexamethasone) 0.5 Mg/5 Ml Elixir, 10 ML SSP QID PRN for MUCOSITIS, (Reported) Famotidine (Famotidine) 20 Mg Tablet, 20 MG PO BID PRN for HEARTBURN, (Reported) Fluticasone Propionate (Flonase Allergy Relief) 9.9 Ml [place].susp, 2 SPRAY NA BID PRN for NASAL CONGESTION, (Reported) Ondansetron HCl (Zofran) 4 Mg Tablet, 4 MG PO Q6-8HP PRN for nausea/vomiting Prochlorperazine Maleate (Prochlorperazine Maleate) 10 Mg Tablet, 10 MG PO Q6H PRN for NAUSEA OR VOMITING, (Reported) Allergies Coded Allergies: Gwpcgja-Wir-Vya Reductase Inhibitor (Verified Adverse Reaction, Intermediate, Weak muscles, 03/19/20) SMOOTH MANN MD May 02, 2020 09:15
[2020-05-02 10:04] LABS: BLOOD UREA NITROGEN 19 MG/DL (7-18); CALCIUM LEVEL 9.4 MG/DL (8.8-10.2); CARBON DIOXIDE LEVEL 29 MEQ/L (21-32); CHLORIDE LEVEL 110 MEQ/L (98-107); CREATININE FOR GFR 0.66 MG/DL (0.55-1.30); GLOMERULAR FILTRATION RATE > 60.0 (>39); GLUCOSE, FASTING 95 MG/DL (70-100); POTASSIUM SERUM 4.3 MEQ/L (3.5-5.1); SODIUM LEVEL 143 MEQ/L (136-145)
--- NOTE | 2020-05-02 11:03 | ECHO ---
DATE OF PROCEDURE: 05/01/2020 Age: 74 Gender: Female Height: 155 cm Weight: 80 kg REFERRING PHYSICIAN: Dr. Allison Manrique. INDICATION: Dyspnea. MEASUREMENTS: 2D Measurements: Left atrium 3.4 cm Intraventricular septum 1.10 cm Posterior wall 1.07 cm Aortic root 3.2 cm Aortic annulus 1.0 cm Inferior vena cava 1.95 cm (more than 50% respiratory variation) Left ventricle diastole 3.6 cm Doppler Measurements: Mild aortic regurgitation No aortic stenosis Aortic valve velocity 112 cm/s LVOT velocity 93.6 cm/s Mild mitral regurgitation Mitral E velocity 87.0 cm/s Mitral A velocity 104 cm/s Very mild tricuspid regurgitation Estimated right ventricle systolic pressure 29-34 mmHg Estimated CVP of 5-10 mmHg Mild pulmonic regurgitation Pulmonary artery acceleration time 92 msec consistent with mild pulmonary hypertension MITRAL ANNULAR TISSUE DOPPLER E prime septal 5.7 cm/s, E prime lateral 6.6 cm/s DESCRIPTION: Rhythm was sinus. Image quality was fair. No pericardial effusion. This was a 2D, M-mode, color flow Doppler, and pulsed wave Doppler examination including mitral annular tissue Doppler. CONCLUSIONS: 1. Normal left ventricle internal dimensions and wall thickness. Normal regional LV wall motion and wall thickening. Mildly hyperdynamic LV systolic function. LVEF 70-75% by visual estimate. Grade 1 LV diastolic dysfunction (impaired relaxation filling pattern). 2. Mild aortic valve sclerosis of a 3-cusp aortic valve. Mild aortic regurgitation. 3. Mild mitral annular calcification. Mild mitral regurgitation. 4. Suggestive of mild elevation of pulmonary artery systolic pressure. 5. Otherwise normal appearing echocardiogram Doppler findings. MTDD
[2020-05-02] MEDS ORDERED: LOPERAMIDE 2 MG CAPLET PO PRN (11:05)
[2020-05-02 14:00] VITALS: BP 130/67
--- NOTE | 2020-05-02 14:14 | ECGEPIP ---
[facility] - ED Test Date: 2020-04-30 Pat Name: CHAYA FONTANEZ Department: Room: [place] [address] Gender: Female Access Consultant: SETH : 1945 Requested By: IDALMIS Davis Order Number: [id number] Reading MD: Paulette Steinberg Measurements Intervals [place] Rate: 92 P: 41 CT: 120 QRS: 60 QRSD: 84 T: 37 QT: 376 QTc: 464 Interpretive Statements Normal sinus rhythm NSTTW abnormalities increased rate 03/15/20 Electronically Signed on 05-02-2020 14:14:08 EST by Paulette Steinberg
== END 2020-05-02 14:39 | disposition home or self-care (01) | DRG 176 ==
LOC: M ED 19:19 → M ED INP 23:58 → M MSPAV 05-01 01:58
PROVIDERS: ADMIT Internal Medicine; ATTEND Internal Medicine
DX: I26.99 Other pulmonary embolism without acute cor pulmonale (principal); C79.89 Secondary malignant neoplasm of other specified sites; C50.411 Malignant neoplasm of upper-outer quadrant of right female breast; I10 Essential (primary) hypertension; C50.412 Malignant neoplasm of upper-outer quadrant of left female breast; D72.829 Elevated white blood cell count, unspecified; F32.9 Major depressive disorder, single episode, unspecified; E66.9 Obesity, unspecified; G47.00 Insomnia, unspecified; K22.70 Barrett's esophagus without dysplasia; M81.0 Age-related osteoporosis without current pathological fracture; Z79.899 Other long term (current) drug therapy; Z88.8 Allergy status to other drugs, medicaments and biological substances; Z87.891 Personal history of nicotine dependence

== ENCOUNTER → 2020-04-30 | Outpatient (CLI) | payer MEDICARE ==
[~2020-04-30] MED LIST changes: +CIPR-250 PO; +D3 S20002 PO; +DEXA0.5E2 SSP; +DULO1CAP6 PO; +Diflucan PO; +ELIQ5TAB PO; +EQL50TAB2 PO; +FAMO20TA PO; +FLON1SPR; -FUROSEMIDE 20MG/2ML VIAL (J1940) As Ordered ONE; -FUROSEMIDE 20MG/2ML VIAL (J1940) IV ONE; +GASTROGRAFIN SOLUTION 30ML (Q9963) As Ordered ONE; +GEMC1INJ IV; +ISOVUE-370 76% 100ML VIAL As Ordered ONE; -LISI-542 PO; +LISI-898 PO; +LISI10TA22 PO; +METO25TA4 PO; +NEUR600T PO; +OYST500T91 PO; +PROC5TAB57 PO; -QUET1TAB7 PO; +QUET25TA3 PO; +QUET50TA3 PO; -QUET5TAB PO; +REST0.05 OU; +XARE15TA PO; +XARE20TA PO
--- NOTE | 2020-04-30 15:48 | REP ---
INDICATION: MET BREAST CA COMPARISON: 01/20/2020 TECHNIQUE: Axial contrast enhanced images from the thoracic inlet to the upper abdomen using 100 ml Isovue 370 intravenous contrast material followed by CT of the abdomen and pelvis. Coronal and sagittal reformations obtained. This CT examination was performed using the following dose reduction techniques: Automated exposure control, adjustment of mA and/or kv according to the patient's size, and use of iterative reconstruction technique. FINDINGS: There is evidence for pulmonary emboli in the right lower lobe pulmonary arteries without associated areas of acute consolidation/atelectasis. Lung schafer demonstrate chronic appearing changes and small stable right pleural effusion. No acute consolidation, obvious suspicious nodule or mass lesion. Few scattered calcified granulomata remains stable. Tracheobronchial tree is patent. No pleural effusion. No pneumothorax. Thoracic aorta and heart/pericardium are relatively stable and within normal limits. No thoracic aortic aneurysm or dissection. No cardiomegaly or pericardial effusion. No mediastinal or hilar adenopathy. Left axillary lymph node measures up to 9 mm and similar to prior examination. Osseous structures without acute focal abnormality. Ntugzy-G-Ubra identified with tip in the SVC. IMPRESSION: 1. Relatively new appearing pulmonary emboli in the right lower lobe pulmonary arteries. No associated areas of consolidation or atelectasis. 2. Chronic pulmonary parenchymal changes including small stable right pleural effusion and trace right basilar atelectasis. 3. As above. <Electronically signed by Amaury Tinajero > 04/30/20 [id number]
--- NOTE | 2020-04-30 16:22 | REP ---
INDICATION: MET BREAST CA. COMPARISON: None TECHNIQUE: Axial contrast-enhanced images from the lung bases to the pubic symphysis using oral and 100 cc Isovue 370 intravenous contrast material. Delayed images of the abdomen along with coronal and sagittal reformations obtained. This CT examination was performed using the following dose reduction techniques: Automated exposure control, adjustment of mA and/or kv according to the patient's size, and the use of iterative reconstruction technique. FINDINGS: Liver again demonstrates stable 1 cm cyst in the left lateral segment. No focal hepatic lesions are otherwise identified. Spleen/splenule, pancreas, gallbladder, bilateral adrenal glands are normal. The kidneys demonstrate chronic age-related cortical thinning along with small nonobstructing left renal calculi up to 4 mm. No hydronephrosis or perinephric stranding. The enteric system is without obstruction or acute inflammatory process. Scattered sigmoid diverticula noted without acute diverticulitis. Pelvis demonstrates normal bladder and evidence for prior hysterectomy. No ascites. No free air. No significant adenopathy. Abdominal aorta without aneurysm or dissection. Musculoskeletal structures demonstrate degenerative changes without acute osseous abnormality. IMPRESSION: 1. No acute abdominopelvic pathology appreciated. No evidence for mass lesion or malignancy/metastatic disease identified. 2. Left-sided nonobstructing left renal calculi up to 4 mm. 3. Stable chronic findings. <Electronically signed by Amaury Tinajero > 04/30/20 [id number]
== END ==
LOC: M RAD 11:47
PROVIDERS: ATTEND Internal Medicine Medical Oncology
DX: C50.411 Malignant neoplasm of upper-outer quadrant of right female breast (principal); I26.99 Other pulmonary embolism without acute cor pulmonale; J90 Pleural effusion, not elsewhere classified; J98.11 Atelectasis; N20.0 Calculus of kidney

== ENCOUNTER → 2020-08-06 | Outpatient (CLI) | payer MEDICARE ==
[~2020-08-06] MED LIST changes: +BREAST PROSTHESIS B XX; +COVI100V IM; +D3 S20002 PO; +DEXA0.5E2 SSP; +DOXY-350 PO; +DULO1CAP6 PO; +ELIQ5TAB PO; +EQL50TAB2 PO; +FLON1SPR; +GABA-283 PO; -GABA-845 PO; +ISOVUE-370 76% 100ML VIAL As Ordered ONE; +LIDO1CRE42 TOP; -LIDO2.5C15 TOP; +MASTECTOMY BRA BILAT XX; +METO25TA4 PO; +NEUR600T PO; +OYST500T91 PO; +REST0.05 OU; +XARE15TA PO; +XARE20TA PO
--- NOTE | 2020-08-06 14:19 | REP ---
INDICATION: SOB COMPARISON: Multiple the latest 04/30/2020 a standard contrast-enhanced exam TECHNIQUE: Standard helical is CT angiogram after the intravenous administration of 75 cc Isovue 370. Attention pulmonary arteries. FINDINGS: There is excellent visualization of the pulmonary arterial vasculature. There are no focal filling defects present that would be considered consistent with acute pulmonary emboli. The filling defect seen the prior exam have resolved. There is mediastinal and right hilar adenopathy representing a change from the prior exam. There is a right pleural effusion some of which is loculated and representing a change from the prior exam. There is no pericardial effusion. The thoracic aorta is within normal limits and unchanged. The imaged osseous structures are stable. The imaged upper abdomen is also unchanged. Evaluation of the lung schafer shows scattered asymmetric right lower lobe densities with a thin rim of pulmonary parenchymal consolidation abutting the aforementioned diffusion. IMPRESSION: 1. No evidence of an acute pulmonary embolism. Previous embolic disease has resolved. 2. Newly developed right pleural effusion and adenopathy as described above. 3. Lung parenchymal opacities likely subsegmental atelectatic changes. Follow-up is suggested. 4. Other findings as described above. <Electronically signed by Eldon Mckeon > 08/06/20 [id number]
== END ==
LOC: M RAD 13:08
PROVIDERS: ATTEND Internal Medicine Medical Oncology
DX: J90 Pleural effusion, not elsewhere classified (principal); R59.1 Generalized enlarged lymph nodes; Z86.711 Personal history of pulmonary embolism

== ENCOUNTER → 2020-08-09 | Outpatient (CLI) | payer MEDICARE ==
[~2020-08-09] MED LIST changes: -ISOVUE-370 76% 100ML VIAL As Ordered ONE; +LIDOCAINE 1% MDV 20ML VIAL As Ordered ONE; +SODIUM BICARBONATE 8.4% INJ 50MEQ 50 ML VIAL As Ordered ONE; +presservision
[2020-08-09 08:43] LABS: INR 1.08; PROTHROMBIN TIME 14.2 SECONDS (12.5-14.3)
[2020-08-09 08:44] LABS: PARTIAL THROMBOPLASTIN TIME 32.6 SECONDS (24.2-38.5)
--- NOTE | 2020-08-09 09:44 | REP ---
INDICATION: POST RIGHT THORA, 2 VIEW. COMPARISON: Radiographs 03/15/2020, CT 08/06/2020. TECHNIQUE: Two views chest performed following right thoracentesis. FINDINGS: There is no pneumothorax. There is mild right pleural fluid/thickening. There is mild fibro atelectatic change in the right lower lung zone. Left lung is clear. The heart is normal in size. There is tortuosity of the thoracic aorta. The there is a left central venous catheter with the tip in the superior vena cava. There are mild degenerative changes of the spine without compression deformity. IMPRESSION: No pneumothorax status post right thoracentesis. Mild right pleural fluid/thickening. <Electronically signed by Hussain Brothers > 08/09/20 [id number]
[2020-08-09 09:52] LABS: PH BODY FLUID 7.548 UNITS (NOT ESTABLISHED); SOURCE, BODY FLUID pH PLEURAL
[2020-08-09 10:03] LABS: APPEARANCE, BODY FLUID HAZY (CLEAR); PLEURAL FL COLOR PALE YELLOW (COLORLESS); SOURCE, BODY FLUID PLEURAL
[2020-08-09 10:19] LABS: LDH, BODY FLUID 145 U/L (NOT ESTABLISHED); SOURCE, BODY FLUID GLUCOSE PLEURAL; SOURCE, BODY FLUID LDH PLEURAL; SOURCE, BODY FLUID TOT PROTEIN PLEURAL; TOTAL PROTEIN, BODY FLUID 3.9 G/DL (NOT ESTABLISHED)
[2020-08-09 11:00] VITALS: BP 168/81
--- NOTE | 2020-08-10 18:41 | REP ---
INDICATION: RT SIDED LOCULATED PLEURAL EFFUSION The patient has a history of right-sided loculated pleural effusion COMPARISON: None. TECHNIQUE: The procedure was performed by JOCELYN Montgomery, under the direct supervision of Dr. Brothers The risks and benefits of the procedure were explained to the patient and an informed consent was obtained both verbally and written. Directly prior to the start of the procedure a formal time-out was completed in the procedure room. Pleural fluid in right lung zone was localized using ultrasound guidance. The skin was prepped and draped in a sterile fashion. Eight ML of buffered lidocaine was used as a local anesthetic. Using ultrasound guidance an 8-Guy[place] multi side-hole catheter was inserted using trocar technique. FINDINGS: Six hundred forty-five mL of yellow colored fluid was withdrawn and sent to the laboratory for further analysis. The patient tolerated the procedure well and there were no immediate complications. After the appropriate amount of monitored convalescence, the patient was discharged from the department. IMPRESSION: Ultrasound-guided right lung zone thoracentesis with removal of 645 mL of yellow pleural fluid. <Electronically signed by Trina Bay > 08/09/20 [id number] <Electronically signed by Hussain Brothers > 08/10/20 [id number]
== END ==
LOC: M IRPRO 07:53
PROVIDERS: ATTEND Internal Medicine Medical Oncology
DX: C50.411 Malignant neoplasm of upper-outer quadrant of right female breast (principal); Z79.899 Other long term (current) drug therapy; Z81.1 Family history of alcohol abuse and dependence; Z86.711 Personal history of pulmonary embolism; R06.02 Shortness of breath

== ENCOUNTER 2020-08-11 11:24 | Emergency (ER) | payer MEDICARE ==
[~2020-08-11] VITALS: Ht 154.9 cm; Wt 79.3 kg
[~2020-08-11 11:24] MED LIST changes: -LIDOCAINE 1% MDV 20ML VIAL As Ordered ONE; -SODIUM BICARBONATE 8.4% INJ 50MEQ 50 ML VIAL As Ordered ONE; -presservision
[2020-08-11 12:08] LABS: VENOUS BASE EXCESS 2.1 (-2.0-2.0); VENOUS HCO3 27.9 MEQ/L (23.0-27.0); VENOUS O2 SATURATION 71.7 % (60.0-80.0); VENOUS PARTIAL PRESSURE CO2 48.3 mmHg (38.0-50.0); VENOUS PARTIAL PRESSURE O2 38.5 mmHg (30.0-50.0); VENOUS PH 7.379 UNITS (7.330-7.430); VENOUS STANDARD HCO3 25.8 MEQ/L; VENOUS TOTAL CO2 29.3 MEQ/L (24.0-28.0)
[2020-08-11 12:12] LABS: BASO # 0.1 10^3/uL (0.0-0.2); BASO % 0.6 % (0.0-1.0); EOS # 0.2 10^3/uL (0.0-0.5); EOS % 2.6 % (0.0-3.0); HEMATOCRIT 33.8 % (36.0-47.0); HEMOGLOBIN 10.6 g/dl (12.0-15.5); LYMPH # 1.5 10^3/uL (1.5-5.0); LYMPH % 18.6 % (24.0-44.0); MEAN CORPUSCULAR HEMOGLOBIN 33.1 pg (27.0-33.0); MEAN CORPUSCULAR HGB CONC 31.4 g/dl (32.0-36.5); MEAN CORPUSCULAR VOLUME 105.6 fl (80.0-96.0); MONO # 0.6 10^3/uL (0.0-0.8); MONO % 7.2 % (2.0-8.0); NEUTROPHILS # 5.5 10^3/uL (1.5-8.5); NEUTROPHILS % 70.6 % (36.0-66.0); PLATELET COUNT, AUTOMATED 597 10^3/uL (150-450); WHITE BLOOD COUNT 7.8 10^3/uL (4.0-10.0)
[2020-08-11] MEDS ORDERED: presservision (12:13)
[2020-08-11] MEDS ORDERED: LISI10TA22 PO (12:15)
--- NOTE | 2020-08-11 12:24 | REP ---
INDICATION: DYSPNEA/COUGH. COMPARISON: Comparison chest x-ray August 09, 2020 TECHNIQUE: Portable upright AP chest radiograph. FINDINGS: There is blunting of the right lateral pleural angle again noted, slightly increased when compared with the August 09, 2020 study. The left pleural angle is sharp. There is some fissural thickening in the right perihilar region. Monitoring electrodes are noted. A left subclavian Xecbbn-Y-Chug catheter is seen with its tip in the expected location of the superior vena cava. Mildly prominent heart is again seen. No infiltrate is appreciated. Pulmonary vasculature is not increased. No acute bony abnormality.. IMPRESSION: Mildly prominent heart. Small right pleural effusion slightly increased from the August 09, 2020 study.. <Electronically signed by Gerry Jurado > 08/11/20 [id number]
[2020-08-11 12:55] LABS: ALT/SGPT 43 U/L (12-78); BILIRUBIN,DIRECT 0.1 MG/DL (0.0-0.2); BILIRUBIN,TOTAL 0.3 MG/DL (0.2-1.0); BLOOD UREA NITROGEN 15 MG/DL (7-18); CALCIUM LEVEL 8.9 MG/DL (8.8-10.2); CARBON DIOXIDE LEVEL 30 MEQ/L (21-32); CHLORIDE LEVEL 106 MEQ/L (98-107); CK-MB VALUE MASS < 1.0 NG/ML (<3.6); CPK CREATINE PHOSPHOKINASE 20 U/L (26-192); CREATININE FOR GFR 0.51 MG/DL (0.55-1.30); GLOMERULAR FILTRATION RATE > 60.0 (>39); GLUCOSE, FASTING 65 MG/DL (70-100); NT-PRO BNP 148 PG/ML (<450); POTASSIUM SERUM 3.6 MEQ/L (3.5-5.1); SODIUM LEVEL 141 MEQ/L (136-145); THYROXINE (T4) 6.3 UG/DL (4.5-12.0); TOTAL PROTEIN 6.6 GM/DL (6.4-8.2); TROPONIN I < 0.02 NG/ML (< 0.10)
[2020-08-11] MEDS ORDERED: ISOVUE-370 76% 100ML VIAL As Ordered ONE (13:19)
--- NOTE | 2020-08-11 14:13 | REP ---
INDICATION: chest pain, sob. There is a history of breast carcinoma status post bilateral mastectomy. COMPARISON: Comparison is made with chest CT study from 06 August 2020 and 30 April 2020.. TECHNIQUE: Contrast dose: 75 ML of Isovue [address] technique: Helical scanning is acquired and overlapping 1.5 mm and contiguous 3 mm axial images are reformatted. In addition, maximum intensity projection and multiplanar re-formation images are generated in sagittal and coronal imaging projections. FINDINGS: There is good opacification in the pulmonary arterial tree. There is no evidence of vessel cut off or filling defect to suggest pulmonary embolus. Homogeneous opacity is seen in the thoracic aorta. There is no evidence of aneurysm or dissection. Lung window settings demonstrate a moderate amount of non layering right pleural fluid and visceral and parietal pleural thickening suggestive of non transudative pleural effusion; question metastatic pleural disease. Similar in size amount and distribution from a August 06, 2020. There is mild discoid atelectasis in the right lower lobe. No pulmonary mass or nodule is seen. No new infiltrate is observed. There are scattered granulomatous calcifications. No left pleural effusion is seen. In the upper abdomen, there is a small accessory splenule again noted. The visualized upper abdominal structures are otherwise unremarkable. Status post bilateral mastectomy with postoperative changes at the mastectomy sites unchanged from prior study. No hilar mass is seen. There are scattered pretracheal and Mary carinal lymph nodes unchanged from the recent prior study. These are somewhat more prominent however than on April 30, 2020. The largest of these measures 9 mm in short axis dimension. IMPRESSION: No CT evidence of pulmonary embolus. Some nodular pleural thickening and non layering right pleural fluid, question metastatic pleural involvement on the right, unchanged from the recent prior study. Scattered mediastinal lymph nodes again noted unchanged from August 06, 2020. No new infiltrate. <Electronically signed by Gerry Jurado > 08/11/20 [id number]
[2020-08-11 14:27] VITALS: O2SAT 90
[2020-08-11 14:45] VITALS: BP 148/73
--- NOTE | 2020-08-12 08:32 | ED PDOC ---
Post-Departure Follow-Up radiology report faxed to fredi brown Sarah MD Aug 12, 2020 08:32
--- NOTE | 2020-08-13 16:32 | ECGEPIP ---
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
== END 2020-08-11 15:06 | disposition home or self-care (01) ==
LOC: M ED 11:24
DX: J90 Pleural effusion, not elsewhere classified (principal); I10 Essential (primary) hypertension; M81.0 Age-related osteoporosis without current pathological fracture; E78.5 Hyperlipidemia, unspecified; F33.9 Major depressive disorder, recurrent, unspecified; K22.70 Barrett's esophagus without dysplasia; G47.00 Insomnia, unspecified; Z85.3 Personal history of malignant neoplasm of breast; Z79.899 Other long term (current) drug therapy; Z88.8 Allergy status to other drugs, medicaments and biological substances; Z87.891 Personal history of nicotine dependence
CPT/HCPCS: 36415; 71045; 71275; 80048; 80076; 82550; 82553; 82803; 83605; 83880; 84436; 84443; 84484; 85025; 87040; 87798; 93005; 93041; 99285; Q9967

== ENCOUNTER → 2020-08-13 | Outpatient (CLI) | payer MEDICARE ==
[~2020-08-13] MED LIST changes: +presservision
--- NOTE | 2020-08-14 11:12 | REP ---
INDICATION: RESTAGING BREAST CANCER C50.811. COMPARISON: PET-CT 05/24/2019 is the latest prior. CT scan of the chest 08/11/[address] scan of the abdomen and pelvis 05/01/2019 TECHNIQUE: After the intravenous administration of 8.36 mCi of FDG 18 triplane whole-body PET-CT was performed from the skull base to the mid thigh. The patient is currently on chemotherapy. FINDINGS: There is abnormal hypermetabolic activity seen in multiple enlarged right subclavian lymph nodes the maximal SUV value in this region is 7.96. There is hypermetabolic activity seen in a nonenlarged right paratracheal lymph node with a maximal SUV value of 3.73. There is extensive adenopathy in the mediastinum within the aortic pulmonary window and subcarinal region along with extensive hypermetabolic activity seen in the right hilum with hilar adenopathy. The maximal SUV value in the mediastinum is 11.43 and in the right hilum 7.81. There is multifocal hypermetabolic activity seen in multiple pleural sites throughout the right hemithorax with a maximal SUV value of 7.0. There is multifocal abnormal hypermetabolic activity seen along the right anterior chest wall is seemingly from the level of the dermis to and including underlying musculature. The abnormal hypermetabolic focus seen previously in the left axilla is again noted with a maximal SUV value of 4.64. There is abnormal para-aortic hypermetabolic activity seen in multiple nonenlarged lymph nodes at the level of the celiac axis and seen bilaterally with a maximal SUV value on the right of 3.77 and on the left 4.39. There is diffuse hypermetabolism seen in the axial and appendicular skeleton with of wide range of SUV values from 2.52- 4.08. IMPRESSION: Extensive new abnormal hypermetabolic activity seen in the neck, chest, and abdomen as described above consistent with metastatic disease. The skeletal hypermetabolism is likely secondary to chemo reactive changes, however, skeletal metastatic foci cannot be ruled out. <Electronically signed by Eldon Mckeon > 08/14/20 [id number]
== END ==
LOC: M PLARAD 15:39
PROVIDERS: ATTEND Internal Medicine Medical Oncology
DX: C50.811 Malignant neoplasm of overlapping sites of right female breast (principal)
CPT/HCPCS: 78815; A9552

== ENCOUNTER → 2020-10-01 | Outpatient (CLI) | payer MEDICARE ==
[~2020-10-01] MED LIST changes: +MIRA3350 PO; +MORP15TA2 PO
--- NOTE | 2020-10-01 17:12 | REP ---
INDICATION: SHORTNESS OF BREATH. COMPARISON: Portable chest, 08/11/2020. TECHNIQUE: Upright PA and lateral images of the chest were obtained. FINDINGS: There has been interval increase in size of the right pleural effusion with a large loculated component superiorly. There is interstitial thickening of the aerated component of the right lung. The left lung remains clear. The heart size is normal. There is no evidence of congestive heart failure. There is a chemotherapy port in the left upper chest with the tip in the superior vena cava. 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 The left lung remains clear. Other findings as noted. <Electronically signed by Darian Figueroa > 10/01/20 [id number]
== END ==
LOC: M WUC 14:46
PROVIDERS: ATTEND Physician Assistant
DX: J90 Pleural effusion, not elsewhere classified (principal); J84.9 Interstitial pulmonary disease, unspecified; C50.919 Malignant neoplasm of unspecified site of unspecified female breast; C79.51 Secondary malignant neoplasm of bone

== ENCOUNTER 2020-10-03 10:27 | Inpatient (IN) | payer MEDICARE ==
[2020-10-03] VITALS (18 sets, daily range): BP systolic 112–159; BP diastolic 62–84
[~2020-10-03] VITALS: Ht 154.9 cm; Wt 82.8 kg
[2020-10-03 11:01] LABS: BASO # 0.1 10^3/uL (0.0-0.2); BASO % 0.4 % (0.0-1.0); EOS % 0.3 % (0.0-3.0); HEMATOCRIT 39.7 % (36.0-47.0); HEMOGLOBIN 12.4 g/dl (12.0-15.5); LYMPH # 1.1 10^3/uL (1.5-5.0); LYMPH % 8.5 % (24.0-44.0); MEAN CORPUSCULAR HEMOGLOBIN 32.8 pg (27.0-33.0); MEAN CORPUSCULAR HGB CONC 31.2 g/dl (32.0-36.5); MONO # 1.4 10^3/uL (0.0-0.8); MONO % 10.7 % (2.0-8.0); NEUTROPHILS # 10.2 10^3/uL (1.5-8.5); NEUTROPHILS % 79.6 % (36.0-66.0); PLATELET COUNT, AUTOMATED 377 10^3/uL (150-450); RED BLOOD COUNT 3.78 10^6/uL (4.00-5.40); WHITE BLOOD COUNT 12.8 10^3/uL (4.0-10.0)
--- NOTE | 2020-10-03 11:02 | REP ---
INDICATION: DYSPNEA/COUGH. COMPARISON: 10/01/2020. TECHNIQUE: Single portable AP view of the chest was performed. FINDINGS: Right-sided pleural and parenchymal opacities on the right appear quite similar to the prior study. Left lung remains clear. No gross change is noted of the heart and mediastinum. There is a left central venous catheter again seen with the tip at the junction of the superior vena cava and right atrium. IMPRESSION: Essentially stable exam. <Electronically signed by Hussain Brothers > 10/03/20 1059
[2020-10-03 11:28] LABS: RSV AMPLIFICATION NEGATIVE (NEGATIVE)
[2020-10-03 11:33] LABS: ALBUMIN 3.4 GM/DL (3.2-5.2); ALT/SGPT 24 U/L (12-78); BILIRUBIN,DIRECT 0.1 MG/DL (0.0-0.2); BILIRUBIN,TOTAL 0.4 MG/DL (0.2-1.0); BLOOD UREA NITROGEN 18 MG/DL (7-18); CALCIUM LEVEL 9.1 MG/DL (8.8-10.2); CARBON DIOXIDE LEVEL 32 MEQ/L (21-32); CHLORIDE LEVEL 104 MEQ/L (98-107); CK-MB VALUE MASS < 1.0 NG/ML (<3.6); CPK CREATINE PHOSPHOKINASE 30 U/L (26-192); CREATININE FOR GFR 0.63 MG/DL (0.55-1.30); GLOMERULAR FILTRATION RATE > 60.0 (>39); GLUCOSE, FASTING 121 MG/DL (70-100); MB/CK RELATIVE INDEX 3.33 (< OR =4); NT-PRO BNP 168 PG/ML (<450); POTASSIUM SERUM 3.8 MEQ/L (3.5-5.1); SODIUM LEVEL 139 MEQ/L (136-145); THYROID STIMULATING HORMONE 0.737 uIU/ML (0.358-3.740); TOTAL PROTEIN 7.2 GM/DL (6.4-8.2); TROPONIN I < 0.02 NG/ML (< 0.10)
[2020-10-03 11:46] LABS: INR 1.22; PROTHROMBIN TIME 15.8 SECONDS (12.7-14.5)
[2020-10-03 11:47] LABS: PARTIAL THROMBOPLASTIN TIME 37.8 SECONDS (25.9-37.0)
--- NOTE | 2020-10-03 11:54 | REP ---
INDICATION: pleuraleffusion. COMPARISON: Chest CT with IV contrast dated 08/06/[address] with IV contrast dated 08/11/2020 TECHNIQUE: Chest CT without IV contrast. FINDINGS: There is a multi loculated large right pleural effusion that has significantly increased in size from the comparison studies. Additionally there is circumferential nodular thickening of the right hemithorax pleura, increased from the comparison studies. These findings may represent empyema or neoplasm. There is compression atelectasis of the right lung as a result of the large multiloculated pleural effusion. No definite right lung nodules or masses are identified but could be obscured. No left lung masses or nodules are identified. No left pleural thickening. The mediastinal and right hilar adenopathy identified on 08/06/2020 is unchanged. There is linear stranding in the subcutaneous fat on the right chest wall with overlying skin thickening. The linear stranding extends into the right axilla this is similar in appearance to 08/06/2020. This may rest represent postradiation change, cellulitis or neoplasm. The unenhanced thoracic aorta is unremarkable. Cardiac size is normal. There is no pericardial effusion. The visualized upper abdominal contents are unremarkable. There is no adrenal mass. IMPRESSION: Multiloculated right pleural effusion has significantly increased in size. Circumferential nodular thickening of the right hemithorax pleura that has increased. Mediastinal and right hilar adenopathy that is unchanged. Skin thickening with underlying subcutaneous fat stranding in the anterior right chest wall extending into the right axilla, unchanged. <Electronically signed by Hussain Arias > 10/03/20 [id number]
[2020-10-03] MEDS ORDERED: methylPREDNISolone 40MG 1ML VIAL IV ONE (12:05)
[2020-10-03] MEDS ORDERED: ALBUTEROL SULFATE 2.5 MG/0.5 ML INH NEB SOLN INH ONE (12:05)
[2020-10-03] MEDS ORDERED: IPRATROPIUM 0.5MG/ALBUTEROL 2.5MG INH SOL UD 3ML (DUONEB) NEB ONE (12:05)
[2020-10-03] MEDS ORDERED: NORCO, ANEXSIA 5/325MG TABLET (HYDROcodone/ACETAMINOPHEN) PO PRN (12:10)
[2020-10-03] MEDS ORDERED: ACETAMINOPHEN TAB 650MG DOSE (2X325MG) PO PRN (12:10)
[2020-10-03] MEDS ORDERED: LEVALBUTEROL 1.25 MG/0.5 ML CONCENTRATE NEB NEB PRN (12:10)
[2020-10-03] MEDS ORDERED: ONDANSETRON 4MG/2ML VIAL IV PRN (12:10)
[2020-10-03] MEDS ORDERED: PERCOCET 5MG/325MG TAB PO PRN ×2 (12:10)
[2020-10-03] MEDS ORDERED: BISACODYL 10 MG SUPP PR PRN (12:10)
[2020-10-03] MEDS: D5W/0.9% SODIUM CHLORIDE 1,000 ML IV SCH (12:10)
[2020-10-03] MEDS ORDERED: QUET50TA3 PO (12:45)
[2020-10-03] MEDS ORDERED: LISI-898 PO (12:45)
[2020-10-03] MEDS ORDERED: XARE20TA PO (12:45)
[2020-10-03] MEDS ORDERED: BACT800T5 PO (12:49)
[2020-10-03] MEDS ORDERED: VENTAER INH (12:49)
[2020-10-03] MEDS ORDERED: MIRA3350 PO (12:49)
[2020-10-03] MEDS ORDERED: GOOD8.6T2 PO (12:49)
[2020-10-03] MEDS ORDERED: HOME MED LIST COMPLETE! XX SCH (12:50)
--- NOTE | 2020-10-03 12:54 | ECGEPIP ---
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
[2020-10-03] MEDS ORDERED: MIDAZOLAM INJ 2MG/2ML VIAL (J2250 PER 1MG) As Ordered ONE ×2 (12:55→12:56)
[2020-10-03] MEDS ORDERED: flumazeniL 0.5 MG/5 ML VIAL As Ordered ONE (12:56)
[2020-10-03] MEDS ORDERED: LIDOCAINE 1% MDV 20ML VIAL As Ordered ONE (12:57)
[2020-10-03] MEDS ORDERED: ceFAZolin SOD 1 GM in D5W MINI-BAG PLUS 50 ML IV ONE (13:00)
--- NOTE | 2020-10-03 13:04 | HPEPDOC ---
[facility] Medical History & Physical Date of Admission Oct 03, 2020 Date of Service: Oct 03, 2020 Primary Care Physician: Jose Pritchard Attending Physician: SHERRI ROBISON DO History and Physical CHIEF COMPLAINT: Shortness of breath HISTORY OF PRESENT ILLNESS: Patient is a 74-year-old female with a past history of metastatic breast cancer who had been on chemotherapy in the past but is recently switched to palliative care due to advancement of the cancer despite chemotherapy who presents to the emergency department today with worsening shortness of breath. Patient states that the shortness of breath been getting worse over the past week. Patient states that she always has shortness of breath at baseline and does have difficulty getting up and down stairs due to shortness of breath. Patient states that when she goes up or down a flight of stairs she needs to rest for about 5 minutes before she is able to catch her breath. 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 Patient presented to her primary care on 10/01/2020 and had a chest x-ray performed. Patient states that she had a referral sent to Dr. Holland with thoracic surgery but this shortness of breath became acutely worse so she decided to come to the emergency department. Patient had a history of pleural effusions and had a Pleurx catheter placed in the right side of her chest however, this was removed due to chemotherapy holding the progression of the cancer and the persistent pleural effusion. This was removed about 6 months ago. Patient states that she has been coughing but has not been bringing anything up with this. Patient also has some left-sided pain along the subcostal region which she has been seeing her oncologist for. Patient states that the most recent PET scan showed a possible either metastatic lesion or something to do with the chemotherapy. Patient also complained of some blood in her urine on 10/01/2020 which is since resolved. Patient was also having some bladder fullness at that time which is also resolved. In the emergency department, patient was found to have a large pleural effusion on the right side and hospitalist was contacted for admission. PAST MEDICAL HISTORY: 1. ER positive/AL positive/HER-2 positive metastatic cancer of the breast status post bilateral lumpectomies with subsequent mastectomy who had been on chemotherapy recently but had switched to palliative care within the past few weeks. 2. Osteoporosis. 3. Hypertension. 4. Depression 5. Insomnia 6. Wasserman's obvious 7. Dyslipidemia 8. Obesity PAST SURGICAL HISTORY: 1. Lyzexl-u-Bssf placement. 2. Hysterectomy. 3. Surgery on her knees and ankles. 4. Pleurx catheter insertion with subsequent removal SOCIAL HISTORY: Patient currently lives at home with her . 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 Patient has 2 Pekingese dogs at home. Patient smoked a pack a day for about 25 years and quit 2 years ago. Patient states that he has 2 glasses of wine a day and denies any illicit drug use FAMILY HISTORY: Patient states that her mother had breast cancer and her father had coronary ar nery disease. ALLERGIES: Please see below. REVIEW OF SYSTEMS: General: Patient denies fevers HEENT: Patient denies headaches Cardiovascular: Patient denies chest pain Respiratory: Patient reports shortness of breath and a cough as described above GI: Patient denies abdominal pain, nausea, vomiting, diarrhea : Patient reports blood in her urine with some increased pressure that has resolved Extremities: Patient denies swelling or pain in extremities Neurological: Patient denies numbness or tingling in legs Skin: Patient denies any new rashes or lesions. Hematologic: Patient denies any easy bruising. Lymphatic: Patient denies any lumps lumps or bumps in neck, axilla, or groin HOME MEDICATIONS: Please see below. PHYSICAL EXAMINATION: VITAL SIGNS: Temperature 97.4, pulse 107, respiratory rate 24, blood pressure 132/76, pulse oximetry 96% on 2 L via nasal cannula General: Alert and oriented female patient who was sitting up in bed when I walked into the room. Patient had nasal cannula oxygen in place. Patient not appear to be in any acute distress. HEENT: Normocephalic, atraumatic, moist mucous membranes. Neck: No lymphadenopathy or thyromegaly Cardiac: Tachycardic rate and rhythm, no murmurs, normal S1, normal S2 Pulm: Clear to auscultation on the left lung field. Clear to auscultation in the upper right lung field. Fine crackles in the mid right lung field with no breath sounds on the right lung field. Left lung field is tympanic to percussion with the right lower lung field being dull to percussion. Right upper lung field is tympanic to percussion Abd: Nondistended, nontender to palpation, normal bowel sounds Ext: No edema bilateral lower extremities Neuro: Patient is able to move all 4 extremities on command. Patient reports equal sensation to light touch in all 4 extremities Skin: Skin of the head, neck, abdomen, back, upper and lower extremities examin ed not show any evidence of rash LABORATORY DATA: See below. IMAGING: A chest x-ray performed on 10/03/2020 was reported to show essentially stable exam. A CT of the chest without contrast performed on 10/03/2020 is reported to show multiloculated right pleural effusion has significantly increased in size. Circumferential nodular thickening of the right hemithorax pleura has increased. Mediastinal and right hilar adenopathy that is unchanged. Skin thickening with underlying subcutaneous fat stranding in the anterior right chest wall extending to the right axilla unchanged. MICROBIOLOGY: Please see below. ASSESSMENT: 74-year-old female with a past history of breast cancer who has had pleural effusions in the past presents to the emergency department with shortness of breath which is most likely secondary to malignant pleural effusion. . PLAN: 1. Malignant pleural effusion. CT scan of the chest shows worsening of a pleural effusion on the right side. Dr. Holland of thoracic surgery has been consulted and will place either a Pleurx catheter or perform a thoracentesis to drain the fluid. I appreciate Dr. Holland's help in treating the patient. Patient is currently under the care of palliative care due to her cancer continuing to spread despite her being on chemotherapy. Patient states that she would not like anything invasive and would like measures to make her comfortab le. I did explain that draining the pleural effusion will make her more comfortable and she is agreeable to having the procedure performed as it will make her more comfortable with her breathing. 2. Metastatic breast cancer involving right chest wall, left chest wall, right axillary, mediastinal, and pleural effusion involvement. Patient had been on chemotherapy but recently switched to palliative care. Patient has palliative care medications at home and says that these do somewhat help. Patient's pain is best controlled with the 1000 mg of Tylenol. We will continue palliative care at this time. 3. Hypertension. We will continue the patient's home medications 4. Depression. We will continue the patient's on medications. 5. Hematuria. Patient states that she had a urinalysis at her primary care office on Thursday which showed hematuria however, we do not have record of this. A repeat urinalysis will be performed today. It appears that the patient was put on Bactrim for possible urinary tract infection. 6. DVT prophylaxis: Due to the patient's procedure, Xarelto will be held at this point patient will be on teds and sequentials. 7. CODE STATUS: DO NOT RESUSCITATE/DO NOT INTUBATE. I did have a conversation with the patient and she stated that she would want comfort measures and nothing that would prolong her life. I asked the patient if she understood that if her heart were to stop beating she was to stop breathing and we did not attempt CPR that she would and the patient states that she understands this and this is what she would want. Patient also would not want to be on a breathing machine so the patient will be a DO NOT INTUBATE status as well. Disposition: Patient will be admitted to the progressive care unit for management of her pleural effusion. Once the patient's pleural effusion is drained we will continue to monitor the patient and the patient is doing well patient may be able to be discharged within 24 to 48 hours. Vital Signs Vital Signs Date Time Temp Pulse Resp B/P (MAP) Pulse Ox O2 Delivery O2 Flow Rate FiO2 10/03/20 12:30 107 92 Nasal Cannula 2.0 10/03/20 11:15 143/77 (99) 10/03/20 10:27 97.4 26 Laboratory Data Labs 24H Laboratory Tests 2 10/03/20 10:36: Immature Granulocyte % (Auto) 0.5, Neutrophils (%) (Auto) 79.6H, Lymphocytes (%) (Auto) 8.5L, Monocytes (%) (Auto) 10.7H, Eosinophils (%) (Auto) 0.3, Basophils (%) (Auto) 0.4, Neutrophils # (Auto) 10.2H, Lymphocytes # (Auto) 1.1L, Monocytes # (Auto) 1.4H, Eosinophils # (Auto) 0.0, Basophils # (Auto) 0.1, Nucleated Red Blood Cells % (auto) 0.0, Anion Gap 3L, Glomerular Filtration Rate > 60.0, Calcium Level 9.1, Total Bilirubin 0.4, Direct Bilirubin 0.1, Aspartate Amino Transf (AST/SGOT) 20, Alanine Aminotransferase (ALT/SGPT) 24, Alkaline Phosphatase 77, Total Creatine Kinase 30, Creatine Kinase MB < 1.0, Creatine Kinase MB Relative Index 3.33, Troponin I < 0.02, WD-Sat-L-Type Natriuretic Peptide 168, Total Protein 7.2, Albumin 3.4, Albumin/Globulin Ratio 0.9L, Thyroid Stimulating Hormone (TSH) 0.737 10/03/20 10:42: Coronavirus (COVID-19)(PCR) NEGATIVE, Influenza Type A (RT-PCR) NEGATIVE, Influenza Type B (RT-PCR) NEGATIVE, Respiratory Syncytial Virus (PCR) NEGATIVE 10/03/20 11:17: Prothrombin Time 15.8H, Prothromb Time International Ratio 1.22, Activated Partial Thromboplast Time 37.8 CBC/BMP Laboratory Tests 10/03/20 10:36 Microbiology Microbiology 10/03/20 Blood Culture, Received Pending 10/03/20 Blood Culture, Received Pending Home Medications Scheduled Alendronate Sodium (Alendronate Sodium) 70 Mg Tablet, 70 MG PO QWEEK FRIDAYS Calcium Carbonate/Vitamin D3 (Calcium 500-Vit D3 200 Tablet) 1 Each Tablet, 1 TAB PO DAILY Cetirizine HCl (Cetirizine HCl) 10 Mg Tablet, 10 MG PO DAILY Duloxetine Hcl (Duloxetine HCl) 60 Mg Capsule.dr, 60 MG PO DAILY Gabapentin (Neurontin) 600 Mg Tablet, 600 MG PO BID Lisinopril (Lisinopril) 5 Mg Tablet, 5 MG PO DAILY Metoprolol Tartrate (Metoprolol Tartrate) 25 Mg Tablet, 25 MG PO BID Quetiapine Fumarate (Quetiapine Fumarate) 50 Mg Tablet, 50 MG PO QHS Rivaroxaban (Xarelto) 20 Mg Tablet, 20 MG PO DAILY Vit A/Vit C/Vit E/Zinc/Copper (Preservision Areds Softgel) 1 Each Capsule, 2 CAP PO DAILY Vitamin B Complex (Vitamin B Complex) 1 Each Tablet, 1 TAB PO DAILY Scheduled PRN Cyclosporine (Restasis) 0.05% Droperette, 1 DROP OU BID PRN for DRY EYES Dexamethasone (Dexamethasone) 0.5 Mg/5 Ml Elixir, 10 ML SSP QID PRN for MUCOSITIS Allergies Coded Allergies: Qccijph-Mip-Yam Reductase Inhibitor (Verified Adverse Reaction, I ntermediate, Weak muscles, 03/19/20) A-FIB/CHADSVASC A-FIB History Current/History of A-Fib/PAF?: No SHERRI ROBISON DO Oct 03, 2020 13:04
[2020-10-03] MEDS: LEVALBUTEROL 1.25 MG/0.5 ML CONCENTRATE NEB NEB SCH ×2 (14:00→19:54)
[2020-10-03] MEDS ORDERED: MIDAZOLAM INJ 2MG/2ML VIAL (J2250 PER 1MG) IV STA ×2 (14:14)
[2020-10-03] MEDS ORDERED: LIDOCAINE 1% MDV 20ML VIAL SC ONE ×2 (14:20→15:00)
[2020-10-03 14:28] LABS: LDH LACTATE DEHYDROGENASE 159 U/L (84-246)
--- NOTE | 2020-10-03 15:30 | REP ---
INDICATION: Chest tube placement. COMPARISON: Portable chest performed earlier today at 10:50 a.m.. TECHNIQUE: Portable AP chest with the patient semi upright, post right chest tube placement. FINDINGS: The large multiloculated right pleural effusion has decreased in size post chest right chest tube placement. There is no pneumothorax. The thoracotomy tube can be seen in the right costophrenic angle. Left lung remains clear. The left subclavian central venous catheter tip remains in satisfactory position at the confluence of the superior vena cava and right atrium, unchanged. IMPRESSION: Interval placement of the right thoracotomy tube. The multiloculated right pleural effusion appears reduced in size. No pneumothorax. <Electronically signed by Hussain Arias > 10/03/20 1528
--- NOTE | 2020-10-03 15:34 | RO ---
OPERATIVE NOTE DATE OF OPERATION: 10/03/2020 PREOPERATIVE DIAGNOSIS: Recurrent malignant pleural effusion, right side. POSTOPERATIVE DIAGNOSIS: Recurrent malignant pleural effusion, right side. PROCEDURE: Insertion of right PleurX catheter. SURGEON: Dr. Art Holland FINDINGS: PleurX catheter drained 450 mL of serosanguineous fluid, more serous than sanguineous. DESCRIPTION OF PROCEDURE: Under satisfactory moderate sedation achieved with 3 mg of Versed, patient was prepped and draped in the usual sterile fashion. Entry and exit sites were marked. The entry site was infiltrated with 1% lidocaine down to the rib and pleura. Exploring needle was placed with production of serosanguineous fluid. A wire was then placed. Wire did not go all the way but rather more like three-quarters of the way, and then I felt an obstruction. The exit site was then infiltrated with 1% lidocaine along with the pathway from the exit site to the entry site for a tunnel. Incisions were made on both sites, and a tunnel was placed from the exit site to the entry site and the PleurX catheter pulled through. The entry site was then dilated with a peel-away introducer and the PleurX catheter placed without difficulty. The catheter was appropriately positioned, and the entry wound was closed with running 4-0 Monopril subcuticular suture. Catheter was secured to the abdominal wall with 2-0 silk suture. Patient was drained of 450 mL of serosanguineous fluid until she started to wince with pain. Catheter was dressed. Patient tolerated the procedure well, and a chest x-ray is pending.
[2020-10-03] MEDS: KETOROLAC 30 MG/ML 1ML VIAL IV SCH ×2 (16:07→21:39)
--- NOTE | 2020-10-03 16:43 | CR ---
CONSULTATION DATE: 10/03/2020 Patient seen at the request of Dr. Marco Antonio Brothers of the emergency room for increasing shortness of breath and a recurrent pleural effusion. HISTORY OF PRESENT ILLNESS: Patient is a 74-year-old white female who has a long history of breast cancer dating back 20 years ago. She initially had a lumpectomy with recurrence, where she then underwent bilateral mastectomies. She then had a pleural effusion occurring in June 2019, where she underwent a PleurX catheter placement. The effusion was malignant. Eventually the effusion stopped draining and the PleurX catheter was removed. She then continued to undergo chemotherapy consisting of Paclitaxel in November 2019 but was then discontinued in January 2020 because of increasing troponin levels and then switched to gemcitabine in January. She has had continued disease progression since then, and she has therefore decided to decline continuation of her chemotherapy. About 3 weeks ago she started to get short of breath, but it was minimal; however, in the last week she has gotten more short of breath. In the last week she has had to use a back wedge in order to sleep at night to prop herself up. She complaining of dyspnea today. She is now short of breath at rest. She underwent a thoracentesis in July 2020 with removal of 650 mL of fluid, which was indeed again malignant. Her PET scan in July shows hypermetabolic activity in her neck, chest, and abdomen, including skeletal hypermetabolic uptake. MEDICAL HISTORY: 1. Hypertension. 2. Hypercholesterolemia. 3. Previous depression and anxiety. 4. Prior pulmonary embolism in April 2020. 5. Prior shingles right eye 6. Depression 7. Hematuria, prior history of renal stones 8. Stage 4 Breast cancer SURGICAL HISTORY: 1. The above breast cancer surgeries, including lumpectomy and bilateral mastectomies. 2. Hysterectomy in 1972. 3. Ankle surgery for a fracture in 2005. 4. Appendectomy in 1972. 5. Tonsillectomy as a child. HOME MEDICATIONS: - Ventolin two puffs every 4 hours as needed for wheezing - alendronate 70 mg every week - calcium carbonate D3 one tablet daily - cetirizine 10 mg daily - cyclosporin, Restasis, one drop both eyes twice a day - dexamethasone 0.5 mg/5 mL four times a day as needed for mucositis - duloxetine 60 mg daily - Neurontin 600 mg twice a day - lisinopril 5 mg daily - metoprolol 25 mg twice a day - Xarelto 20 mg daily - Bactrim DS one tablet twice a day - vitamin B1 tablet daily SOCIAL HISTORY: Was a smoker but quit over 30 years ago. It was one pack per day for 20 years. Denies elicit drugs. Alcohol: Has a glass of wine daily. EXPOSURES: No prior exposures to tuberculosis. She has two Shilpa dogs at home. No cats or birds. OCCUPATIONAL HISTORY: Worked at [employer] in [employer]. ALLERGIES: STATINS and HMG-CoA REDUCTASE INHIBITORS with weakness. FAMILY HISTORY: Mother had breast cancer. Father had coronary artery disease. REVIEW OF SYSTEMS: CONSTITUTIONAL: Without fever, chills, or night sweats. Does indicate that she has increased sweating over the past 2 weeks. EYES: Without diplopia. Wears glasses. Without amaurosis fugax or prior jaundice. NOSE: Without epistaxis. MOUTH: Has her own teeth. RESPIRATORY: See history of present illness (HPI). With minimal cough without sputum production. Without chest pain or chest discomfort other than not being able to get enough air with breathing. Has the above orthopnea. CARDIAC: Without prior myocardial infarctions or intermittent claudication. Does have hypertension and hypercholesterolemia. GASTROINTESTINAL: With some nausea but without vomiting, without diarrhea, constipation, melena, hematochezia, abdominal pain, or hematemesis. GENITOURINARY: Has blood in her urine, for which she tested positive. She was therefore placed on Bactrim by her primary care provider. She does have a history of renal stones. She has no flank pain consistent with renolithiasis. ENDOCRINE: Without diabetes, without thyroid disease. 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 Without prior seizures. PSYCHIATRIC: Without current pathological anxieties, depressions, or psychoses. Being treated for long-term depression. PHYSICAL EXAMINATION: Well-developed, well-nourished, obese female in moderate distress with shortness of breath. VITAL SIGNS: Temperature is 100.1 with a heart rate of 110 in sinus rhythm, respiratory rate of 24 without the use of accessory muscles, who is 96% saturated on 2 liters nasal cannula, and whose blood pressure is 132/76. EYES: Pupils equal, round, and reactive to light. Extraocular muscles intact. Sclerae anicteric. NOSE: Without deformity. HEAD: Normocephalic. MOUTH: Shows her mucous membranes to be pink and moist. Lips and commissures without lesions. There is no thrush. Teeth are in fairly good repair. NECK: Supple. There is no jugular venous distention, no subcutaneous emphysema. Trachea is midline. There is no lymphadenopathy or thyromegaly. She has 2+ carotid upstrokes. LUNGS: Show decreased right-sided on the right side with a dull percussion note on the right side. Left lung shows normal vesicular sounds. CARDIAC: Without murmurs, clicks, gallops, or rubs. I cannot feel her point of maximal impulse (PMI). S1 and S2 are normal. ABDOMEN: Soft, nontender. Bowel sounds are positive. There is no hepatomegaly. No costovertebral angle (CVA) tenderness. EXTREMITIES: Show no pretibial edema. No calf tenderness. No differential swelling of the upper extremities. SKIN: Warm, dry, and perfused without cyanosis or mottling, including that of the nailbeds and knees. NEUROLOGIC: Shows II-XII intact. Normal gross motor, gross sensation intact. Gait is not tested. PSYCHIATRIC: Shows her to be awake, alert, and oriented times three with appropriate mood and affect and conversational. Her white count today in the emergency room was 12.8 with a hemoglobin and hematocrit of 12.4 and 39.7, respectively. Platelet count is 377. Differential shows 79% neutrophils, 8% lymphocytes, 10% monocytes. There are no immature forms or toxic granulations. Her chemistries today show sodium 139 with a potassium of 3.8. BUN and creatinine are 18 and 0.63 with a glucose of 121. Calcium is 9.1 with a corresponding albumin of 3.4. AST and ALT are normal. PT/INR are 15.8 and 1.22, respectively with a PTT of 37 seconds. Her chest x-ray shows an opacity in the right lower hemithorax. It is done portably. There is no lateral chest x-ray. CT scan confirms the presence of a pleural effusion. It may be somewhat loculated with two separate loculations. She will probably need a tPA pleurolysis. Lower lobe shows compression. It is notable that after her thoracentesis in July the lung re-expanded to the chest wall. I do not see breast nodules on the left, and it is difficult to tell on the right because of compression. There is no pericardial effusion. Adrenals have a normal configuration, as does her liver and spleen. IMPRESSION: 1. Recurrent pleural effusion, malignant. 2. Progression of stage IV breast cancer, unresponsive with chemotherapy. 3. Hypercholesterolemia. 4. Hematuria by report. 5. Hypertension. 6. Depression, well controlled. 7. Prior history of shingles of the right eye. 8. Status post pulmonary embolism, on anticoagulation. PLAN AND DISCUSSION: I will place a PleurX catheter once again. I am a bit concerned that it is loculated. Probably undertake a tPA pleurolysis tomorrow via the PleurX catheter to see if we can get the rest of the fluid drained. I will undertake a CT scan tomorrow after drainage to ascertain if the loculation is still there prior to doing a tPA. [facility]
[2020-10-03] MEDS: DOCUSATE SODIUM 100MG CAPSULE PO SCH (21:40)
[2020-10-04] VITALS: BP 143/67
[2020-10-04] MEDS: QUEtiapine FUMARATE 50MG TAB PO SCH ×2 (00:18→22:45)
[2020-10-04] MEDS: LEVALBUTEROL 1.25 MG/0.5 ML CONCENTRATE NEB NEB SCH ×4 (01:10→19:47)
[2020-10-04] MEDS: D5W/0.9% SODIUM CHLORIDE 1,000 ML IV SCH (01:21)
[2020-10-04] MEDS: KETOROLAC 30 MG/ML 1ML VIAL IV SCH ×4 (03:00→20:14)
[2020-10-04 04:00] VITALS: BP 132/61
[2020-10-04 04:03] LABS: BASO % 0.2 % (0.0-1.0); EOS # 0.1 10^3/uL (0.0-0.5); EOS % 0.8 % (0.0-3.0); HEMATOCRIT 33.6 % (36.0-47.0); LYMPH # 1.2 10^3/uL (1.5-5.0); LYMPH % 13.4 % (24.0-44.0); MEAN CORPUSCULAR HEMOGLOBIN 32.3 pg (27.0-33.0); MEAN CORPUSCULAR HGB CONC 30.7 g/dl (32.0-36.5); MEAN CORPUSCULAR VOLUME 105.3 fl (80.0-96.0); MONO # 1.2 10^3/uL (0.0-0.8); NEUTROPHILS # 6.3 10^3/uL (1.5-8.5); NEUTROPHILS % 71.3 % (36.0-66.0); PLATELET COUNT, AUTOMATED 292 10^3/uL (150-450); RED BLOOD COUNT 3.19 10^6/uL (4.00-5.40); WHITE BLOOD COUNT 8.9 10^3/uL (4.0-10.0)
[2020-10-04 04:08] LABS: HEMOGLOBIN 10.3 g/dl (12.0-15.5)
[2020-10-04 04:22] LABS: BLOOD UREA NITROGEN 23 MG/DL (7-18); CALCIUM LEVEL 8.8 MG/DL (8.8-10.2); CARBON DIOXIDE LEVEL 30 MEQ/L (21-32); CHLORIDE LEVEL 109 MEQ/L (98-107); CREATININE FOR GFR 0.67 MG/DL (0.55-1.30); GLOMERULAR FILTRATION RATE > 60.0 (>39); GLUCOSE, FASTING 169 MG/DL (70-100); POTASSIUM SERUM 4.1 MEQ/L (3.5-5.1); SODIUM LEVEL 142 MEQ/L (136-145)
[2020-10-04 08:00] VITALS: BP 136/62
--- NOTE | 2020-10-04 08:16 | REP ---
INDICATION: after pleurex insertion. COMPARISON: Portable chest dated 10/03/2020. TECHNIQUE: Upright PA and lateral chest. FINDINGS: The right thoracotomy tube is unchanged in position. The right pleural effusion appears slightly larger. Left lung is clear. Cardiac size is normal. The left subclavian central venous [id number] is unchanged. IMPRESSION: Right thoracotomy tube unchanged. Left pleural effusion appears slightly larger. <Electronically signed by Hussain Arias > 10/04/20 0812
--- NOTE | 2020-10-04 08:23 | REP ---
INDICATION: placement pleurex cath. COMPARISON: A chest CT dated 10/03/2020. TECHNIQUE: Chest CT without IV contrast. FINDINGS: There is been interval placement of a right thoracotomy tube. The inferior loculation of the large right pleural effusion has decreased in size. There is not appear to have been a size change in the superior loculation. There is no pneumothorax. The nodular thickening of the right pleura is unchanged. The mediastinal and right hilar adenopathy is unchanged. The skin sickly with underline subcutaneous fat stranding in the anterior right chest wall is unchanged. IMPRESSION: After placement of a right thoracotomy tube the large inferior right pleural fluid loculation is decreased in size. The superior loculation appears unchanged. No other interval change. <Electronically signed by Hussain Arias > 10/04/20 [id number]
[2020-10-04] MEDS ORDERED: ALTEPLASE 2MG/2ML VIAL XX ONE (08:25)
[2020-10-04] MEDS: DOCUSATE SODIUM 100MG CAPSULE PO SCH ×2 (08:59→20:14)
[2020-10-04] MEDS: PANTOPRAZOLE 40MG TAB (PROTONIX) PO SCH (08:59)
[2020-10-04] MEDS: MOM 30ML SUSPENSION UDC PO SCH (08:59)
--- NOTE | 2020-10-04 10:58 | IPN ---
PROGRESS NOTE DATE: 10/04/2020 SUBJECTIVE: Ms. Woodruff is breathing a whole lot better today. Her pain is being well-controlled with Toradol. Her vital signs shows a T-max of 98.3 with a heart rate that ranges between 85 and 91 and is sinus rhythm, respiratory rate of 18 to 22 without the use of accessory muscles, who is 92 to 96% saturated on 2 liters nasal cannula. Her blood pressure is ranging between 143/67 to 132/61. Her intake and output over the past 24 hours has been recorded as 7090 in 1350 out for a negativity of 560 ml. This morning she was drained for only 65 ml from the PleurX catheter. She weighs 80.3 kilos today compared to 79.3 kilos yesterday. OBJECTIVE: Her left lung shows normal vesicular sounds with full percussion notes. The right lung shows a dull percussion note in the upper hemithorax posteriorly and full to the diaphragm inferiorly. There are decreased breath sounds on the right side particularly on the right upper extent. There are inspiratory rhonchi in the lower portion of the hemithorax on the right side. Cardiac exam is without murmurs, clicks, gallops or rubs. I cannot feel her PMI. S1 and S2 are normal. Abdomen is soft, nontender, bowel sounds are positive. There is no hepatomegaly. No CVA tenderness. Extremities show no pretibial edema. No calf tenderness. No differential swelling of the upper extremities. Skin is warm, dry and perfused without cyanosis or mottling including that of nailbeds and knees. Neck is supple. There is no jugular venous distention, no subcutaneous emphysema. Trachea is midline. Mouth shows the mucous membranes to be pink and moist. Lips and commissures without lesions or thrush. Eyes shows pupils equal and reactive, extraocular muscles intact. Sclera nonicteric. Neurologic: Cranial nerves II-XII intact. Normal gross motor, gross sensation intact. Gait is not tested. Psychiatric: She is awake, alert and oriented x3 with appropriate mood and affect, and conversational. LABORATORY DATA: Her white count today is 8.9, down from 12.8 yesterday, hemoglobin and hematocrit have dropped, however to 10.3 and 33.6 from 12.4 and 39.7. I cannot explain this on the basis of her I and O's. Platelet count is 292,000 and stable. Differential shows 71% neutrophils, 13% lymphocytes, 14% monocytes. There are no immature forms or toxic granulations. Her electrolytes are essentially normal with a BUN and creatinine of 23 and 0.87. Glucose is 169 and a calcium of 8.8. Her chest CT today still shows an upper loculation of the pleural fluid. The lower loculation is now completely drained. PleurX catheter, however has curled around as it was too long for the one cavity, it has gone in, hit the medial wall and then came back, hit the chest wall and then looped back on itself once again. It does not look as if the upper and lower loculations are actually connected. IMPRESSION: 1. Widely metastatic breast cancer Stage IV. 2. Loculated malignant pleural effusions, recurrent. 3. Hypercholesterolemia. 4. Hematuria by report. 5. Hypertension. 6. Depression, treated. 7. Prior history of shingles of the right eye. 8. Status post pulmonary embolism in April of this year, now on anticoagulation. PLAN/DISCUSSION: I am going to try to get the two cavities to connect by placing TPA within the lower cavity. I will place her in Trendelenburg and shake her about to distribute the TPA. I am not completely hopeful that is going to work but it is certainly worth a try before I ask Interventional Radiology to place a pigtail catheter in the upper collection. I feel that if I do not drain the upper collection her lung will become encased and trapped. I will undertake a CT scan tomorrow once again and then make a decision as to whether to drain the upper cavity.
[2020-10-04 12:00] VITALS: BP 138/63
--- NOTE | 2020-10-04 15:03 | IPNPDOC ---
Text Note Date of Service The patient was seen on 10/04/20. NOTE Subjective: Patient is a 74-year-old female with past history of metastatic br east cancer who presented to the hospital with a pleural effusion. Pleural effusion is loculated. Dr. Holland placed a Pleurx catheter in the lower compartment yesterday. Patient says her breathing is feeling better today. Patient is still currently on oxygen. Patient will have TPA administered in the compartment in order to try to break up the loculations per Dr. Holland's recommendations. Patient is otherwise feeling well today. Review of systems: General: Patient denies fevers HEENT: Patient denies headaches Cardiovascular: Patient denies chest pain Respiratory: Patient reports her shortness of breath has improved GI: Patient denies abdominal pain, nausea, vomiting, diarrhea : Patient denies increased frequency or pain with urination Extremities: Patient denies swelling or pain in extremities Neurological: Patient denies numbness or tingling in legs Physical exam: Vitals: See below General: Alert and oriented female patient who was sitting up in bed with nasal cannula oxygen in place when I walked in the room. Patient did not appear to be in any acute distress. HEENT: Normocephalic, atraumatic, moist mucous membranes. Neck: No lymphadenopathy or thyromegaly Cardiac: Regular rate and rhythm, no murmurs, normal S1, normal S2 Pulm: Clear to auscultation bilaterally. No wheezes, rhonchi, rales Abd: Nondistended, nontender to palpation, normal bowel sounds Ext: No edema bilateral lower extremities Labs: See below Imaging: CT scan of the chest performed without contrast on 10/04/2020 is reported to show after placement of right thoracotomy to the large inferior right pleural fluid loculation is decreased in size. The superior loculation appears unchanged. No other interval change. Chest x-ray performed on 10/04/2020 was reported to show right thoracotomy tube unchanged, left pleural effusion appears slightly larger. Assessment/plan: 74-year-old female past history of metastatic breast cancer has had pleural effusions in the past presents the emergency department with shortness of breath secondary to malignant pleural effusion 1. Loculated malignant pleural effusion. Pleurx catheter was placed by Dr. Holland yesterday. According to Dr. Holland's notes, he placed TPA today to try to break up the loculations and will repeat her CT scan tomorrow in order to see if the superior component of the pleural effusion will break up and if not, a pigtail catheter may need to be placed in the superior loculation. 2. Metastatic breast cancer involving the right chest wall, left chest wall, right axillary, mediastinal, and pleural effusion involvement. Patient is on palliative care and states that she will be going to hospice at some point in the near future but is not quite ready at this time. 3. Hypertension. Continue on patient's home medications. 4. Depression. Continue home medications. 5. Hematuria. Patient complained of hematuria. Patient had a UA ordered however, it has not been done yet. Patient does not complain of hematuria at this time. Patient had this on Thursday. DVT Prophylaxis: Teds and sequentials Disposition: Pending improvement the patient's pleural effusion. VS,Fishbone, I+O VS, Fishbone, I+O Laboratory Tests 10/04/20 03:42 Vital Signs Date Time Temp Pulse Resp B/P (MAP) Pulse Ox O2 Delivery O2 Flow Rate FiO2 10/04/20 12:00 2.0 10/04/20 12:00 98.1 105 20 138/63 (88) 94 Nasal Cannula I&O- Last 24 Hours up to 6 AM 10/04/20 06:00 Intake Total 890 ml Output Total 1350 ml Balance -460 ml SHERRI ROBISON DO Oct 04, 2020 15:03
[2020-10-04 16:00] VITALS: BP 159/72
[2020-10-04 20:00] VITALS: BP 156/76
[2020-10-05] VITALS: BP 155/65
[2020-10-05] MEDS: LEVALBUTEROL 1.25 MG/0.5 ML CONCENTRATE NEB NEB SCH ×3 (01:13→13:07)
[2020-10-05] MEDS: KETOROLAC 30 MG/ML 1ML VIAL IV SCH ×2 (03:31→08:44)
[2020-10-05 04:00] VITALS: BP 131/63
[2020-10-05 04:02] LABS: BASO % 0.3 % (0.0-1.0); EOS # 0.1 10^3/uL (0.0-0.5); EOS % 1.1 % (0.0-3.0); HEMATOCRIT 34.6 % (36.0-47.0); HEMOGLOBIN 10.7 g/dl (12.0-15.5); LYMPH # 0.8 10^3/uL (1.5-5.0); LYMPH % 7.8 % (24.0-44.0); MEAN CORPUSCULAR HEMOGLOBIN 32.7 pg (27.0-33.0); MEAN CORPUSCULAR HGB CONC 30.9 g/dl (32.0-36.5); MEAN CORPUSCULAR VOLUME 105.8 fl (80.0-96.0); MONO # 1.2 10^3/uL (0.0-0.8); MONO % 11.2 % (2.0-8.0); NEUTROPHILS # 8.4 10^3/uL (1.5-8.5); NEUTROPHILS % 79.2 % (36.0-66.0); PLATELET COUNT, AUTOMATED 302 10^3/uL (150-450); RED BLOOD COUNT 3.27 10^6/uL (4.00-5.40); WHITE BLOOD COUNT 10.6 10^3/uL (4.0-10.0)
[2020-10-05 04:35] LABS: BLOOD UREA NITROGEN 26 MG/DL (7-18); CALCIUM LEVEL 8.3 MG/DL (8.8-10.2); CARBON DIOXIDE LEVEL 31 MEQ/L (21-32); CHLORIDE LEVEL 109 MEQ/L (98-107); CREATININE FOR GFR 0.64 MG/DL (0.55-1.30); GLOMERULAR FILTRATION RATE > 60.0 (>39); GLUCOSE, FASTING 117 MG/DL (70-100); POTASSIUM SERUM 4.2 MEQ/L (3.5-5.1); SODIUM LEVEL 142 MEQ/L (136-145)
[2020-10-05 08:00] VITALS: BP 131/63
--- NOTE | 2020-10-05 08:40 | REP ---
INDICATION: after pleurex insertion. COMPARISON: 10/04/2020. TECHNIQUE: Upright PA and lateral chest. FINDINGS: There is a right thoracotomy tube as previously. The right pleural effusion has decreased in size, particularly the right upper lobe loculation. The left lung remains clear. The cardiac size is normal. The left subclavian central venous [id number] catheter is unchanged. IMPRESSION: Right thoracotomy tube. Right pleural effusion has decreased in size. <Electronically signed by Hussain Arias > 10/05/20 0837
[2020-10-05] MEDS: PANTOPRAZOLE 40MG TAB (PROTONIX) PO SCH (08:43)
[2020-10-05] MEDS: DOCUSATE SODIUM 100MG CAPSULE PO SCH (08:44)
[2020-10-05] MEDS: MOM 30ML SUSPENSION UDC PO SCH (08:44)
--- NOTE | 2020-10-05 09:19 | REP ---
INDICATION: pleurex. COMPARISON: A chest CT dated 10/04/2020. TECHNIQUE: Chest CT without IV contrast. FINDINGS: There is a right thoracotomy tube as previously. There is a loculated right pleural effusion. The inferior loculation continues to decrease in size. On the study today the superior loculation has also decreased in size. There is no pneumothorax. The nodular thickening of the right pleura is unchanged. The mediastinal and right hilar adenopathy is unchanged. The skin thickening in the anterior superior right hemithorax with underlying fat stranding is unchanged. IMPRESSION: Decrease in size of the loculated right hemithorax pleural effusion as described. <Electronically signed by Hussain Arias > 10/05/20 0915
[2020-10-05] MEDS ORDERED: LASI40TA9 PO (09:55)
--- NOTE | 2020-10-05 12:11 | DSES ---
DISCHARGE SUMMARY DATE OF ADMISSION: 10/03/2020 DATE OF DISCHARGE: 10/05/2020 DISCHARGE DIAGNOSES: 1. Stage IV widely metastatic breast cancer. 2. Loculated malignant pleural effusion, recurrent. 3. Hypercholesterolemia. 4. Hematuria. 5. Hypertension. 6. Depression. 7. Prior history of shingles of the right eye. 8. Status post pulmonary embolism in April of this year, now on anticoagulation. HOSPITAL COURSE: Patient is a 74-year-old white female who has known breast cancer for at least 20 years. She I understand underwent a lumpectomy with recurrence and then underwent bilateral mastectomies. In June 2019 she was found to have a pleural effusion, for which she underwent a PleurX catheter placement. It was a malignant effusion. Eventually the effusion stopped draining, and the PleurX catheter was removed. She then continued to undergo chemotherapy consisting of Paclitaxel in November 2019 but was discontinue in January 2020 because of increasing troponin levels and then switched to gemcitabine in January. She has had continued disease progression and has therefore decided to discontinue her chemotherapy. About 3 weeks ago she began to get short of breath, but in the last week it has gotten a lot worse, such that she has to use a back wedge in order to sleep at night to prop herself up. She was short of breath at her initial examination on admission. She underwent a thoracentesis in July 2020 with removal of 650 mL with improvement of her symptomatology. That effusion also turned out to be malignant. Her PET scan in July showed hypermetabolic activity in her neck, chest, and abdomen, including skeletal hypermetabolic uptake. She presented to the emergency room again short of breath in need of drainage. Since the effusion has recurred once again, even after thoracentesis a few weeks ago, I therefore placed a PleurX catheter. She had two loculations. The hope was that the upper loculation would communicate with the lower loculation. The PleurX catheter was placed into the lower loculation and looped around itself, being constrained by the size of the cavity. Nonetheless, it is functional. She then underwent a tPA pleurolysis with continued drainage to the PleurX bottle. Subsequent CT after the tPA pleurolysis showed the upper loculation to be smaller but not completely gone. She is breathing a lot better and is asymptomatic from that point of view, and I therefore decided to discharge her rather than to place a pigtail catheter in the upper portion of the effusion. She is being discharged home today on her home medications, which include Ventolin two puffs every 4 hours as needed shortness of breath or wheezing, alendronate 70 mg by mouth every week, calcium carbonate/vitamin D3 one tablet daily, cetirizine 10 mg daily, Restasis one drop both eyes twice a day as needed for dry eyes, dexamethasone 10 mL of 0.5 mg/mL elixir four times a day as needed for mucositis, duloxetine 60 mg daily, gabapentin 600 mg twice a day, lisinopril 5 mg daily, metoprolol 25 mg twice a day, Xarelto 20 mg daily, Bactrim one tablet twice a day, along with various vitamins one capsule daily. I have also added Lasix 40 mg daily to her medication regimen with the hope that it will further control the pleural effusion. She is to drain herself every day and will return to see me in 10 days with a chest x-ray and a complete blood count (CBC). Her discharge white count is 10.6 with a hemoglobin and hematocrit of 10.7 and 34.6, down from 12.4 and 39.7. Platelet count was 302. Chemistries showed essentially normal electrolytes with a BUN and creatinine of 26 and 0.64. The pleural effusion was bloody. Her chest x-ray shows clearing of the right costophrenic angle. CT scan is discussed above, showing decreased size of the upper loculation on the right side.
--- NOTE | 2020-10-05 14:23 | IPNPDOC ---
Text Note Date of Service The patient was seen on 10/05/20. NOTE Subjective: Patient is a 74-year-old female with past history of metastatic br east cancer who presented to hospital for further effusion. Patient received TPA administered into the compartment with a pleural effusion yesterday and is breathing better today. Patient states that she is feeling better than she was yesterday. Patient said that she was doing well without the oxygen but then put the nasal cannula back in this morning to help her breathe although her pulse oximetry was in the upper 90s. Review of systems: General: Patient denies fevers HEENT: Patient denies headaches Cardiovascular: Patient denies chest pain Respiratory: Patient reports decreased shortness of breath GI: Patient denies abdominal pain, nausea, vomiting, diarrhea : Patient denies increased frequency or pain with urination Extremities: Patient denies swelling or pain in extremities Neurological: Patient denies numbness or tingling in legs Physical exam: Vitals: See below General: Alert and oriented female patient who was sitting on the edge of the bed with nasal cannula oxygen in place when I walked in the room. Patient not appear to be in any acute distress. HEENT: Normocephalic, atraumatic, moist mucous membranes. Neck: No lymphadenopathy or thyromegaly Cardiac: Regular rate and rhythm, no murmurs, normal S1, normal S2 Pulm: Better aeration to the right lung with faint crackles heard lower down to the base of the right lung. Left lung was clear to auscultation bilaterally. Tympanic to percussion in the left lung field. Tympanic to percussion in the upper two thirds of the right lung field with dullness in the lower one third. Abd: Nondistended, nontender to palpation, normal bowel sounds Ext: No edema bilateral lower extremities Labs: See below Imaging: Chest x-ray performed on 10/05/2020 is reported to show right thoracotomy tube. Right pleural effusion has decreased in size. CT the chest without contrast performed on 10/05/2020 was reported to show decreas e in size of the loculated right hemithorax pleural effusion with the superior loculation also decreasing in size. Assessment/plan: 74-year-old female with past medical history of metastatic breast cancer who had pleural effusions in the past who presented to the emergency department with increasing shortness of breath secondary to malignant pleural effusion. 1. Loculated malignant pleural effusion. Pleurx catheter was placed by Dr. Holland 2 days ago. Patient had TPA placed yesterday which did decrease the superior component of the pleural effusion. Because of this and the improvement in the patient's breathing, patient was discharged home by Dr. Holland with follow-up with him in 10 days. 2. Metastatic breast cancer involving the right chest wall, left chest wall, right axillary, mediastinal, and pleural effusion vomit. Patient on palliative care and states that she will be going on hospice at some point in the near future but is not quite ready at this time. 3. Hypertension. Continue home medications. 4. Depression. Continue home medications. 5. Hematuria. Patient complained hematuria on Thursday and had a UA performed by her primary care provider. Hematuria has cleared up and UA performed yesterday does not show any blood in the urine. DVT Prophylaxis: Teds and sequentials Disposition: Patient was discharged home today by Dr. Holland. Please see Dr. Holland's discharge summary for further information. VS,Matthewbone, I+O VS, Fishbone, I+O Laboratory Tests 10/05/20 03:52 Vital Signs Date Time Temp Pulse Resp B/P (MAP) Pulse Ox O2 Delivery O2 Flow Rate FiO2 10/05/20 08:00 98.3 10/05/20 08:00 105 19 131/63 (85) 96 Room Air 10/05/20 08:00 2.0 I&O- Last 24 Hours up to 6 AM 10/05/20 06:00 Intake Total 1260 ml Output Total 1315 ml Balance -55 ml SHERRI ROBISON DO Oct 05, 2020 14:23
== END 2020-10-05 14:05 | disposition home or self-care (01) | DRG 598 ==
LOC: M ED 10:27 → M ED INP 12:08 → ENRESERV 12:22 → M PCU 12:50
PROVIDERS: ADMIT Thoracic Surgery (Cardiothoracic Vascular Surgery); ATTEND Family Medicine
PROC: 0W9930Z Drainage of Right Pleural Cavity with Drainage Device, Percutaneous Approach (ICD-10-PCS; principal; 2020-10-03)
DX: C50.911 Malignant neoplasm of unspecified site of right female breast (principal); C79.51 Secondary malignant neoplasm of bone; J91.0 Malignant pleural effusion; Z92.21 Personal history of antineoplastic chemotherapy; Z66 Do not resuscitate; Z51.5 Encounter for palliative care; Z90.13 Acquired absence of bilateral breasts and nipples; Z87.891 Personal history of nicotine dependence; I10 Essential (primary) hypertension; E78.5 Hyperlipidemia, unspecified; Z86.711 Personal history of pulmonary embolism; Z79.899 Other long term (current) drug therapy; Z88.8 Allergy status to other drugs, medicaments and biological substances; Z20.822 Contact with and (suspected) exposure to COVID-19; F32.9 Major depressive disorder, single episode, unspecified; R31.9 Hematuria, unspecified

== ENCOUNTER → 2020-10-12 | Outpatient (CLI) | payer MEDICARE ==
[~2020-10-12] MED LIST changes: +BACT800T5 PO; -DOXY100C; +DOXY100C3; +GOOD8.6T2 PO; +LASI40TA9 PO; +QUET1TAB17 PO; -QUET25TA3 PO; -QUET50TA3 PO; +QUET50TA4 PO; +VENTAER INH
--- NOTE | 2020-10-12 11:17 | REP ---
INDICATION: J91.0 MALIGNANT PLEURAL EDDUSION C50.411 MALG NEOPLASM OF BR. COMPARISON: 10/05/2020 TECHNIQUE: Two views FINDINGS: A chest tube remains in place in the inferior aspect of the right hemithorax in the pleural space. Since the previous study the right pleural effusion is decreased considerably in extent. There is persistent atelectasis/consolidation at the right lung base. A small amount of fluid is noted in the minor fissure. MediPort catheter in place with the tip in superior vena cava. Heart not enlarged. No failure. IMPRESSION: Decreasing size of right pleural effusion. Persistent consolidation/atelectasis at the right lung base. <Electronically signed by Kenneth Sawant > 10/12/20 [id number]
[2020-10-12 15:43] LABS: HEMATOCRIT 37.1 % (36.0-47.0); HEMOGLOBIN 11.2 g/dl (12.0-15.5); MEAN CORPUSCULAR HEMOGLOBIN 31.7 pg (27.0-33.0); MEAN CORPUSCULAR HGB CONC 30.2 g/dl (32.0-36.5); MEAN CORPUSCULAR VOLUME 105.1 fl (80.0-96.0); PLATELET COUNT, AUTOMATED 539 10^3/uL (150-450); RED BLOOD COUNT 3.53 10^6/uL (4.00-5.40); WHITE BLOOD COUNT 9.9 10^3/uL (4.0-10.0)
== END ==
LOC: M WUC 10:49
PROVIDERS: ATTEND Thoracic Surgery (Cardiothoracic Vascular Surgery)
DX: C50.411 Malignant neoplasm of upper-outer quadrant of right female breast (principal); J91.0 Malignant pleural effusion; J98.11 Atelectasis

== ENCOUNTER 2020-11-04 08:42 | Emergency (ER) | payer MEDICARE ==
[~2020-11-04] VITALS: Ht 154.9 cm; Wt 79.5 kg
[2020-11-04 09:32] LABS: VENOUS BASE EXCESS 4.6 (-2.0-2.0); VENOUS O2 SATURATION 63.8 % (60.0-80.0); VENOUS PARTIAL PRESSURE CO2 60.8 mmHg (38.0-50.0); VENOUS PARTIAL PRESSURE O2 36.7 mmHg (30.0-50.0); VENOUS PH 7.339 UNITS (7.330-7.430); VENOUS STANDARD HCO3 27.8 MEQ/L; VENOUS TOTAL CO2 33.9 MEQ/L (24.0-28.0)
[2020-11-04 09:40] LABS: BASO # 0.1 10^3/uL (0.0-0.2); BASO % 0.4 % (0.0-1.0); EOS % 0.2 % (0.0-3.0); HEMATOCRIT 36.9 % (36.0-47.0); HEMOGLOBIN 11.6 g/dl (12.0-15.5); LYMPH # 0.8 10^3/uL (1.5-5.0); LYMPH % 6.2 % (24.0-44.0); MEAN CORPUSCULAR HEMOGLOBIN 31.2 pg (27.0-33.0); MEAN CORPUSCULAR HGB CONC 31.4 g/dl (32.0-36.5); MEAN CORPUSCULAR VOLUME 99.2 fl (80.0-96.0); MONO # 1.4 10^3/uL (0.0-0.8); MONO % 10.8 % (2.0-8.0); NEUTROPHILS # 10.6 10^3/uL (1.5-8.5); NEUTROPHILS % 81.9 % (36.0-66.0); PLATELET COUNT, AUTOMATED 404 10^3/uL (150-450); RED BLOOD COUNT 3.72 10^6/uL (4.00-5.40); WHITE BLOOD COUNT 12.9 10^3/uL (4.0-10.0)
[2020-11-04 10:11] LABS: ALBUMIN 2.9 GM/DL (3.2-5.2); ALT/SGPT 17 U/L (12-78); BILIRUBIN,DIRECT 0.1 MG/DL (0.0-0.2); BILIRUBIN,TOTAL 0.4 MG/DL (0.2-1.0); BLOOD UREA NITROGEN 14 MG/DL (7-18); CALCIUM LEVEL 9.2 MG/DL (8.8-10.2); CARBON DIOXIDE LEVEL 30 MEQ/L (21-32); CHLORIDE LEVEL 104 MEQ/L (98-107); CK-MB VALUE MASS 1.1 NG/ML (<3.6); CPK CREATINE PHOSPHOKINASE 41 U/L (26-192); GLOMERULAR FILTRATION RATE > 60.0 (>39); GLUCOSE, FASTING 109 MG/DL (70-100); MB/CK RELATIVE INDEX 2.68 (< OR =4); NT-PRO BNP 783 PG/ML (<450); SODIUM LEVEL 138 MEQ/L (136-145); TROPONIN I < 0.02 NG/ML (< 0.10)
--- NOTE | 2020-11-04 10:15 | REP ---
INDICATION: DYSPNEA/COUGH. COMPARISON: PA and lateral chest, 10/12/2020. TECHNIQUE: Upright AP portable chest image was obtained. FINDINGS: There is interstitial thickening on the right with associated pleural effusion. There is a small bore thoracostomy tube on the right. The left lung is clear. The heart borders and mediastinum are normal. There is a chemotherapy port in the left subclavian vein with the tip in the superior vena cava. The upper abdominal bowel gas pattern is normal. There is dextroscoliosis of the lumbar spine. IMPRESSION: 1. 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 2. Other findings as noted, not significantly changed. <Electronically signed by Darian Figueroa > 11/04/20 1011
[2020-11-04] MEDS ORDERED: ISOVUE-370 76% 100ML VIAL As Ordered ONE (11:17)
--- NOTE | 2020-11-04 12:27 | REP ---
INDICATION: cancer/sob/?PE. COMPARISON: CTA chest, 08/11/2020. TECHNIQUE: Imaging protocol: CTA chest was performed with IV contrast. Contiguous 3 mm thick axial projection images were obtained through the chest. 2D sagittal and coronal reconstructions were performed. Radiation optimization: All CT scans at this facility use at least one of these dose optimization techniques: automated exposure control; mA and/or kV adjustment per patient size (includes targeted exams where dose is matched to clinical indication); or iterative reconstruction. CONTRAST: 75 cc Isovue 370 IV. FINDINGS: Lower neck: The thyroid gland is normal. There is no supraclavicular lymphadenopathy. Mediastinum: There is extensive mediastinal lymphadenopathy. Heart/thoracic aorta: The heart is enlarged. There is no pericardial effusion. There is minimal calcific vascular disease of the thoracic aorta and coronary arteries. Upper abdomen: There is calcific vascular disease of the abdominal aorta. There is fatty liver infiltration. There is a benign splenule in the splenic hilum. Thoracic esophagus: Normal. Chest wall and axilla: Status post bilateral mastectomy. There is no axillary lymphadenopathy. There is a chemotherapy port in the left upper chest wall with the tip in the superior vena cava via the left internal jugular vein. There is mild compression of the superior endplates of C7, T1, T2, and T3. There is a large Schmorl's node in the inferior endplate of T8. There is significant levoscoliosis of the thoracic spine. There is a lytic focus with a sclerotic nidus in the T11 vertebral body, suggestive of an osteoid osteoma. Lung parenchyma: There is a large partially loculated right pleural effusion. There is a small bore thoracostomy tube on the right. There is diffuse interstitial thickening of the right lung. The left lung is clear. There is no left pleural effusion. IMPRESSION: 1. No evidence of pulmonary emboli. 2. Partially loculated right pleural effusion with diffuse interstitial thickening consistent with lymphangitic carcinomatosis. 3. Interval placement of a small bore thoracostomy tube on the right. There is no significant change in the appearance of the right pleural effusion when compared with the prior CT exam. 4. Other findings as noted, not significantly changed. <Electronically signed by Darian Figueroa > 11/04/20 [id number]
[2020-11-04] MEDS ORDERED: ALTEPLASE 100MG VIAL As Ordered ONE (13:39)
[2020-11-04] MEDS ORDERED: ALTEPLASE 2MG/2ML VIAL XX ONE (13:45)
[2020-11-04] MEDS ORDERED: ALTEPLASE 2MG/2ML VIAL IV ONE (14:00)
[2020-11-04] MEDS ORDERED: OXYGEN CONCENTRATOR XX (16:56)
[2020-11-04 18:00] VITALS: BP 168/99
--- NOTE | 2020-11-05 08:36 | RO ---
OPERATIVE NOTE DATE OF OPERATION: 11/04/2020 PREOPERATIVE DIAGNOSIS: Retained pleural effusion with a PleurX catheter. POSTOPERATIVE DIAGNOSIS: Retained pleural effusion with a PleurX catheter. PROCEDURE: TPA pleurolysis. SURGEON: FRANCIS DIAZ M.D. HISTORY: The patient was seen at the request of Dr. Steinberg of the Emergency Room. Ms. Woodruff is a 75-year-old white female with advanced lung cancer who has had multiple pleural effusions with now this being her second PleurX catheter. She comes in today complaining of shortness of breath to the Emergency Room. Her CT scan shows a small what looks like to be loculated pleural effusion. PleurX catheter is traversing the pleural effusion but going back on itself as it was in a limited cavity. With the hope that drainage of the additional fluid will somewhat improve her symptomatology I discussed performing TPA pleurolysis. I also discussed the prospect of Hospice as she is now on Palliative Care and is not receiving chemotherapy. DESCRIPTION OF PROCEDURE Patient's PleurX catheter was taken down and prepped with alcohol sponge. The PleurX catheter and access kit was used to access the catheter and 50 ml of normal saline with 6 mg of TPA was instilled. The catheter was cleared with a bolus of air. The catheter was recapped and the patient was turned from side to side to distribute the TPA. She will be drained in four hours to see if there is any additional fluid that will come out. Patient tolerated the procedure well.
--- NOTE | 2020-11-05 16:44 | ECGEPIP ---
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
== END 2020-11-04 18:57 | disposition home or self-care (01) ==
LOC: M ED 08:42
DX: C79.81 Secondary malignant neoplasm of breast (principal); J90 Pleural effusion, not elsewhere classified; C34.90 Malignant neoplasm of unspecified part of unspecified bronchus or lung; I10 Essential (primary) hypertension; E78.5 Hyperlipidemia, unspecified; F33.9 Major depressive disorder, recurrent, unspecified; Z79.899 Other long term (current) drug therapy; Z79.01 Long term (current) use of anticoagulants; Z88.8 Allergy status to other drugs, medicaments and biological substances; Z87.891 Personal history of nicotine dependence
CPT/HCPCS: 71045; 71275; 80048; 80076; 82550; 82553; 82803; 83880; 84443; 84484; 85025; 87040; 87798; 93005; 93041; 96374; 99285; J2997; Q9967